=== PATIENT | female | born 1950 | race African-American/Black ===

== ENCOUNTER 2017-06-12 00:12 | Emergency (ER) | payer OTHER, MEDICARE, MEDICAID ==
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
[2017-06-12] MEDS ORDERED: ACETAMINOPHEN 325 MG TABLET PO ONE (01:17)
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
[2017-06-12 03:17] VITALS: BP 154/74
== END 2017-06-12 03:12 | disposition home or self-care (01) ==
LOC: ER 00:12 → EDBD 00:12 → ER 03:12
DX: S29.012A Strain of muscle and tendon of back wall of thorax, initial encounter (principal); S76.812A Strain of other specified muscles, fascia and tendons at thigh level, left thigh, initial encounter; M54.2 Cervicalgia; R51 Headache; M79.652 Pain in left thigh; V87.7XXA Person injured in collision between other specified motor vehicles (traffic), initial encounter
CPT/HCPCS: 99283

== ENCOUNTER → 2017-12-22 | Outpatient (CLI) | payer MEDICARE, OTHER, MEDICAID ==
--- NOTE | 2017-12-22 14:15 | RADIOLOGY REPORT (SQ) ---
EXAM DESCRIPTION: CHEST PA/LATERAL COMPLETED DATE/TIME: 12/22/2017 12:53 pm REASON FOR STUDY: FLUID OVERLOAD COMPARISON: Abdominal CT scan dated February 2010 EXAM PARAMETERS: NUMBER OF VIEWS: two views TECHNIQUE: Digital Frontal and Lateral radiographic views of the chest acquired. RADIATION DOSE: NA LIMITATIONS: none FINDINGS: LUNGS AND PLEURA: No opacities, masses or pneumothorax. No pleural effusion. MEDIASTINUM AND HILAR STRUCTURES: No masses or adenopathy. HEART AND VASCULAR STRUCTURES: Cardiac silhouette is at the upper limits of normal in size P BONES: No acute findings. HARDWARE: None in the chest. OTHER: Air is identified beneath the right hemidiaphragm suspicious for free intraperitoneal air. Th ere appears to be an associated air-fluid level. Clinical correlation is recommended. Abdominal CT scan may be of value for further evaluation. The previous CT scan did not demonstrate bowel between the right hemidiaphragm and liver. IMPRESSION: No acute consolidations or pleural effusions. Borderline cardiomegaly. Air is identifi ed beneath the right hemidiaphragm suspicious for free intraperitoneal air. There appears to be an a ssociated air-fluid level. Clinical correlation is recommended. Abdominal CT scan may be value for further evaluation. Other findings as noted above. COMMENT: These findings were discussed with Dr. Mendoza at the time of this dictation. TECHNICAL DOCUMENTATION: JOB ID: [id number] [employer]- All Rights Reserved Reading location - IP/workstation name: [email or web address]
== END ==
LOC: OD 12:30
PROVIDERS: ATTEND Internal Medicine Nephrology
DX: E87.70 Fluid overload, unspecified (principal)
CPT/HCPCS: 71046

== ENCOUNTER → 2018-01-29 | Outpatient (CLI) | payer MEDICARE, OTHER, MEDICAID ==
--- NOTE | 2018-01-29 15:45 | RADIOLOGY REPORT (SQ) ---
EXAM DESCRIPTION: KUB COMPLETED DATE/TIME: 01/29/2018 3:14 pm REASON FOR STUDY: DEPENDENCE ON RENAL DIALYSIS;ENCOUNTER FOR FIT/ADJUST OF PERITONEAL DIALYSIS Z99.2 DEPENDENCE ON RENAL DIALYSIS Z49.02 ENCOUNTER FOR FIT/ADJUST OF PERITONEAL DIALYSIS CATHETER COMPARISON: None. NUMBER OF VIEWS: One view. TECHNIQUE: Supine radiographic image of the abdomen acquired. LIMITATIONS: None. FINDINGS: BOWEL GAS PATTERN: Normal bowel gas pattern. No dilated loops. CALCIFICATIONS: No suspicious calcifications. SOFT TISSUES: No gross mass or suggestion of organomegaly. HARDWARE: Peritoneal dialysis catheter. BONES: No acute fracture. No worrisome bone lesions. OTHER: No other significant finding. IMPRESSION: NO RADIOGRAPHIC EVIDENCE FOR ACUTE ABDOMINAL DISEASE. TECHNICAL DOCUMENTATION: JOB ID: [id number] [employer]- All Rights Reserved Reading location - IP/workstation name: [email or web address]
== END ==
LOC: OD 14:42
PROVIDERS: ATTEND Internal Medicine Nephrology
DX: I12.0 Hypertensive chronic kidney disease with stage 5 chronic kidney disease or end stage renal disease (principal); N18.6 End stage renal disease; Z99.2 Dependence on renal dialysis
CPT/HCPCS: 74018

== ENCOUNTER → 2018-07-01 | Outpatient (CLI) | payer MEDICARE, OTHER ==
--- NOTE | 2018-07-01 08:45 | RADIOLOGY REPORT (SQ) ---
EXAM DESCRIPTION: [facility] DUPLEX ART/DANILO FLOW COMPLETED DATE/TIME: 07/01/2018 8:26 am REASON FOR STUDY: UNCONTROLLED SECONDARY HTN (I15.9) I15.9 SECONDARY HYPERTENSION, UNSPECIFIED COMPARISON: None. TECHNIQUE: Realtime and static grayscale images acquired. Selected color Doppler, velocities and spe ctral images recorded. LIMITATIONS: None. FINDINGS: RIGHT KIDNEY: RENAL ARTERY VELOCITIES: 110.3 cm/sec. Segmental artery velocity 38.2 cm/sec. RENAL VEIN: Color doppler flow present, patent. VELOCITY RATIO: 0.87. Normal waveforms. KIDNEY: 7.7 cm. Increased echogenicity. 1.3 cm cortical cyst. No hydronephrosis. LEFT KIDNEY: RENAL ARTERY VELOCITIES: 66.7 cm/sec. Segmental artery velocity 31 cm/sec. RENAL VEIN: Color doppler flow present, patent. VELOCITY RATIO: 0.53. Normal waveforms. KIDNEY: 8.4 cm. Increased echogenicity. 2 cm cortical cyst. No hydronephrosis. BLADDER: Normal. OTHER: Small amount of free fluid secondary to peritoneal dialysis. IMPRESSION: NO DOPPLER EVIDENCE OF HEMODYNAMICALLY SIGNIFICANT RENAL ARTERY STENOSIS. BILATERAL SMALL KIDNEYS WITH INCREASED ECHOGENICITY CONSISTENT WITH CHRONIC MEDICAL RENAL DISEASE. C ORTICAL CYSTS. NO HYDRONEPHROSIS. COMMENT: NORMAL RENAL ARTERY/AORTA VELOCITY RATIO IS LESS THAN OR EQUAL TO 3.5. TECHNICAL DOCUMENTATION: JOB ID: [id number] [employer]- All Rights Reserved Reading location - IP/workstation name: [email or web address]
== END ==
LOC: RAD 07:22
PROVIDERS: ATTEND Internal Medicine Nephrology
DX: I15.9 Secondary hypertension, unspecified (principal); N18.9 Chronic kidney disease, unspecified; D63.1 Anemia in chronic kidney disease
CPT/HCPCS: 93976

== ENCOUNTER → 2018-07-15 | Outpatient (CLI) | payer MEDICARE, OTHER ==
--- NOTE | 2018-07-15 13:57 | RADIOLOGY REPORT (SQ) ---
EXAM DESCRIPTION: CT ABDOMEN NO ORAL OR IV COMPLETED DATE/TIME: 07/15/2018 1:20 pm REASON FOR STUDY: OTHER ASCITIES (R18.8) R18.8 OTHER ASCITES COMPARISON: CT abdomen pelvis 03/18/2010 TECHNIQUE: CT scan of the abdomen performed without intravenous contrast and without oral contrast. Images reviewed with lung, soft tissue, and bone windows. Reconstructed coronal and sagittal MPR im ages reviewed. All images stored on PACS. All CT scanners at this facility use dose modulation, iterative reconstruction, and/or weight based d osing when appropriate to reduce radiation dose to as low as reasonably achievable (ALARA). [facility]: Dose Right [facility]: CareDose [facility]: Dose Right [facility]: Teradose 4D [facility]: Smart Red [place] RADIATION DOSE: CT Rad equipment meets quality standard of care and radiation dose reduction techniq ues were employed. CTDIvol: 4.1 mGy. DLP: 157 mGy-cm.mGy. LIMITATIONS: None. FINDINGS: LOWER CHEST: No significant findings. No nodules or infiltrates. NONCONTRASTED LIVER, SPLEEN, ADRENALS: Evaluation limited by lack of IV contrast. No identified sign ificant masses. PANCREAS: No masses. No peripancreatic inflammatory changes. GALLBLADDER: No identified stones by CT criteria. No inflammatory changes to suggest cholecystitis. RIGHT KIDNEY AND URETER: No suspicious masses. Assessment limited by lack of IV contrast. 2 mm righ t upper pole intrarenal nonobstructive stone No hydronephrosis or hydroureter. LEFT KIDNEY AND URETER: No suspicious masses. 2 cm cyst left upper pole kidney. Assessment limited by lack of IV contrast. No significant calcifications. No hydronephrosis or hydroureter. AORTA AND RETROPERITONEUM: No aneurysm. No retroperitoneal masses or adenopathy. BOWEL AND PERITONEAL CAVITY: There is a left lower quadrant indwelling peritoneal catheter which is i ncompletely included in the field of view. Moderate amount of fluid is present in the right and left subphrenic space, likely peritoneal dialysis fluid. This is best shown on coronal image 39. No CT evidence of bowel obstruction APPENDIX: Normal. ABDOMINAL WALL: No abdominal wall hernias. BONES: Chronic appearing L2 upper endplate 50% compression deformity. OTHER: No other significant finding. IMPRESSION: Moderate amount of retained fluid in the right and left subphrenic space, left lower qu adrant peritoneal dialysis catheter incompletely included in the field of view. TECHNICAL DOCUMENTATION: JOB ID: [id number] Quality ID # [id number]: Final reports with documentation of one or more dose reduction techniques (e.g., Au tomated exposure control, adjustment of the mA and/or kV according to patient size, use of iterative reconstruction technique) 2010 [employer]- All Rights Reserved Reading location - IP/workstation name: [email or web address]
== END ==
LOC: RAD 13:02
PROVIDERS: ATTEND Internal Medicine Nephrology
DX: R18.8 Other ascites (principal)
CPT/HCPCS: 74150

== ENCOUNTER 2018-11-05 20:16 | Emergency (ER) | payer MEDICARE, MEDICAID ==
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
[2018-11-05] MEDS ORDERED: ACETAMINOPHEN 325 MG TABLET PO ONE (21:10)
--- NOTE | 2018-11-05 22:08 | RADIOLOGY REPORT (SQ) ---
CT THORACIC SPINE WITHOUT IV CONTRAST HISTORY: Back pain. COMPARISON: None. TECHNIQUE: CT scan of the thoracic spine without IV contrast. This exam was performed according to our departmental dose-optimization program, which includes automated exposure control, adjustment of the mA and/or kV according to patient size and/or use of iterative reconstruction technique. FINDINGS: No acute compression fracture is seen. There is an old compression fracture of L2 seen on prior study. The thoracic alignment is maintained. There is mild multilevel degenerative disc disease throughout the thoracic spine. No advanced canal stenosis is identified. There are small bilateral pleural effusions with adjacent atelectasis. Generalized osteopenia is present. IMPRESSION: No acute compression fracture of the thoracic spine.
--- NOTE | 2018-11-05 22:15 | RADIOLOGY REPORT (SQ) ---
EXAM DESCRIPTION: RadLex: XR ANKLE 2 VIEWS BILATERAL Views: 2 views of each ankle CLINICAL HISTORY: 68 years Female, fall, back pain COMPARISON: None. FINDINGS: Left: Negative for acute fracture, dislocation, or radiopaque foreign body. Right: Negative for acute fracture, dislocation, or radiopaque foreign body. Scattered vascular calcifications are noted. IMPRESSION: 1. No acute findings. 2. Peripheral vascular disease.
--- NOTE | 2018-11-05 22:19 | RADIOLOGY REPORT (SQ) ---
CT LUMBAR SPINE WITHOUT IV CONTRAST HISTORY: Lower back pain. COMPARISON: None. TECHNIQUE: CT scan of the lumbar spine without IV contrast. This exam was performed according to our departmental dose-optimization program, which includes automated exposure control, adjustment of the mA and/or kV according to patient size and/or use of iterative reconstruction technique. FINDINGS: No acute compression fracture is seen. There is a chronic compression fracture of L2 seen on prior CT scan. The lumbar alignment is maintained. Mild disc space loss at L5-S1. There is also mild facet DJD throughout the L3-S1 levels. There are small disc bulges at L3-L4, L4-L5, and L5-S1 but without advanced canal stenosis. Neural foramina are patent. The sacroiliac joints are intact. Generalized osteopenia is present. IMPRESSION: 1. No acute compression fracture of the lumbar spine. 2. Old compression fracture of L2 with superimposed degenerative changes.
[2018-11-05] MEDS ORDERED: ONDANSETRON HCL 8 MG TABLET PO ONE (23:06)
[2018-11-05] MEDS ORDERED: OXYCODONE HCL IR 5 MG TABLET PO ONE (23:06)
[2018-11-05] MEDS ORDERED: ONDANSETRON ODT 4 MG TAB (6 TAB/ER DISP) PO PRN (23:43)
[2018-11-05] MEDS ORDERED: HYDROCODONE/ACETAMINOPHEN 5-325 MG (6 TAB/ER DISP) PO PRN (23:43)
[2018-11-06 00:13] VITALS: BP 151/79
== END 2018-11-06 00:13 | disposition home or self-care (01) ==
LOC: ER 20:16
DX: M54.5 Low back pain (principal); M54.6 Pain in thoracic spine; R11.0 Nausea; M79.672 Pain in left foot; M79.671 Pain in right foot; R53.1 Weakness; Y04.2XXA Assault by strike against or bumped into by another person, initial encounter; W17.89XA Other fall from one level to another, initial encounter; I12.0 Hypertensive chronic kidney disease with stage 5 chronic kidney disease or end stage renal disease; N18.6 End stage renal disease
CPT/HCPCS: 99284; 73600; 72128; 72131; A9270 ×5; S0119

== ENCOUNTER 2018-11-25 17:08 | Emergency (ER) | payer MEDICARE, MEDICAID ==
[2018-11-25 18:25] LABS: HEMATOCRIT 33.3 % (36.0-47.0); HEMOGLOBIN 10.9 g/dL (12.0-15.5); MEAN CORPUSCULAR HEMOGLOBIN 28.2 pg (27.0-33.4); MEAN CORPUSCULAR HGB CONC 32.9 g/dL (32.0-36.0); MEAN CORPUSCULAR VOLUME 86 fl (80-97); PLATELET COUNT 307 10^3/uL (150-450); RED BLOOD COUNT 3.87 10^6/uL (3.72-5.28); RED CELL DISTRIBUTION WIDTH 31.8 % (11.5-14.0); WHITE BLOOD COUNT 4.8 10^3/uL (4.0-10.5)
[2018-11-25 18:43] LABS: ABSOLUTE MONOCYTES # (MANUAL) 0.5 10^3/uL (0.1-1.4); ABSOLUTE NEUTROPHILS# (MANUAL) 3.3 10^3/uL (1.7-8.2); BASOPHILS % (MANUAL) 1 % (0-2); EOSINOPHILS % (MANUAL) 0 % (0-6); LYMPHOCYTES % (MANUAL) 21 % (13-45); METAMYELOCYTES % (MANUAL) 1 % (0); MONOCYTES % (MANUAL) 10 % (3-13); SEGMENTED NEUTROPHILS % (MAN) 67 % (42-78); TOTAL CELLS COUNTED 100
--- NOTE | 2018-11-25 18:46 | RADIOLOGY REPORT (SQ) ---
EXAM DESCRIPTION: CHEST SINGLE VIEW COMPLETED DATE/TIME: 11/25/2018 6:14 pm REASON FOR STUDY: cough COMPARISON: None. EXAM PARAMETERS: NUMBER OF VIEWS: One view. TECHNIQUE: Single frontal radiographic view of the chest acquired. RADIATION DOSE: NA LIMITATIONS: None. FINDINGS: LUNGS AND PLEURA: Left pleural effusion. Small right pleural effusion. Considerable retr ocardiac opacification on the left. MEDIASTINUM AND HILAR STRUCTURES: No masses. Contour normal. HEART AND VASCULAR STRUCTURES: Heart normal in size. Normal vasculature. BONES: No acute findings. HARDWARE: Dual-lumen catheter. OTHER: No other significant finding. IMPRESSION: Pleural effusions. Cannot exclude airspace disease in the left lower lobe, atelectasis versus pneumonia. TECHNICAL DOCUMENTATION: JOB ID: [id number] [employer]- All Rights Reserved Reading location - IP/workstation name: [email or web address]
[2018-11-25 18:48] LABS: ANISOCYTOSIS 4+; OVALOCYTES SLIGHT; PLATELET COMMENT ADEQUATE; POIKILOCYTOSIS 2+; TARGET CELLS 2+
--- NOTE | 2018-11-25 19:30 | ER Document Report ---
ED Blood Pressure Problem - General Mode of Arrival: Medic Information source: Patient, Emergency Med Personnel TRAVEL OUTSIDE OF THE [place] IN LAST 30 DAYS: No - HPI Patient complains to provider of: Low blood pressure Onset: Yesterday Onset/Duration: Gradual, Persistent Quality of pain: No pain Severity: Moderate Pain Level: 3 Problem is: New problem Associated symptoms: Weakness. denies: Visual changes Similar symptoms previously: No Recently seen / treated by doctor: Yes <MAHESH JOSE - Last Filed: 11/25/18 19:38> <CAILIN WATTS - Last Filed: 11/26/18 06:36> - General Chief Complaint: Low Blood Pressure Stated Complaint: BLOOD PRESSURE ISSUES Time Seen by Provider: 11/25/18 17:26 Primary Care Provider: Jenna DOS SANTOS MD [Primary Care Provider] - Follow up as needed Notes: Patient is a 68-year-old female is brought in by EMS with a complaint of hypotension. Patient informs us as well as this EMS that patient has home health and they went out to her house today found out that her blood pressure was a little on the low side my understanding from patient was it was 88/50 when home health contacted EMS. EMS reported the patient had a blood pressure on her arrival of over 100 systolic with a diastolic of around 55. On arrival into the emergency room patient's blood pressure was at 100/50. She informs me that she has had a fairly extensive past medical history recently back in June of this year she was sent to [facility] where she was found to have a small bowel obstruction and underwent surgery. Patient was then transferred back here to [place] where she was in rehab until the end of September. And she is just recently been home. She denies any nausea vomiting or diarrhea she does state that she still urinates and she is on dialysis which she receives Thursday and Fridays. She does state that she went to dialysis yesterday where she states that she was there for a total of 2 hours and 45 minutes but does not know how much volume they took off of her. She has been feeling a little "peaked" for the past few days. She denies any chest pain patient's vital signs on arrival showed her to be afebrile with a blood pressure 100/50 heart rate of 80 pulse ox of 99% on room air and respiratory rate of 20. (MAHESH JOSE) - Related Data Allergies/Adverse Reactions: No Known Allergies Allergy (Verified 11/05/18 21:13) Past Medical History - General Information source: Patient, Emergency Med Personnel, [facility] Records - Social History Smoking Status: Unknown if Ever Smoked Chew tobacco use (# tins/day): No Frequency of alcohol use: None Drug Abuse: None Family History: Reviewed & Not Pertinent Patient has suicidal ideation: No Patient has homicidal ideation: No - Past Medical History Cardiac Medical History: Reports: Hx Hypertension Renal/ Medical History: Reports: Hx End Stage Renal Disease. Denies: Hx Peritoneal Dialysis Past Surgical History: Reports: Hx Abdominal Surgery, Other - peritoneal catheter placement <MAHESH JOSE - Last Filed: 11/25/18 19:38> Review of Systems - Review of Systems Constitutional: See HPI, Malaise, Weakness EENT: No symptoms reported Cardiovascular: No symptoms reported Respiratory: No symptoms reported Gastrointestinal: No symptoms reported Genitourinary: No symptoms reported Female Genitourinary: No symptoms reported Musculoskeletal: No symptoms reported Skin: No symptoms reported Hematologic/Lymphatic: No symptoms reported Neurological/Psychological: See HPI, Weakness -: Yes All other systems reviewed and negative <MAHESH JOSE - Last Filed: 11/25/18 19:38> Physical Exam - Vital signs Interpretation: Hypotensive <MAHESH JOSE - Last Filed: 11/25/18 19:38> - Vital signs Vitals: Temp Pulse Resp BP Pulse Ox 97.7 F 81 17 100/56 L 100 11/25/18 17:09 11/25/18 17:09 11/25/18 17:09 11/25/18 17:09 11/25/18 17:09 - Notes Notes: PHYSICAL EXAMINATION: GENERAL: patient is a 68-year-old female who appears slightly older than her stated age. She is also slightly frail-appearing with a small stature. She does not appear to be in any distress on physical exam today. She is actually relaxed. [id number] HEAD: Atraumatic, normocephalic. EYES: Pupils equal round and reactive to light, extraocular movements intact, conjunctiva are normal. ENT: Nares patent, oropharynx clear without exudates. dry mucous membranes. NECK: Normal range of motion, supple without lymphadenopathy LUNGS: Breath sounds clear to auscultation bilaterally and equal. No wheezes rales or rhonchi. HEART: Regular rate and rhythm without murmurs ABDOMEN: Soft, nontender, nondistended abdomen. No guarding, no rebound. No masses appreciated. Do not see any overt ascites in the abdominal area on examination. Female : deferred Musculoskeletal: Examination of patient's extremities show that she does have edema in bilateral lower extremities 1+ pitting. Upper extremities are also slightly edematous both bilateral arms up to about the mid upper arm. Again 1+ edema. Noted are just tight banding around her arm leaves indentations. She has good cap refill in the nailbeds of the fingers as well as the toes. NEUROLOGICAL: Normal speech, normal gait. Normal sensory, motor exams PSYCH: Flat and blunted affect SKIN: No overt ecchymosis or abnormalities found. (MAHESH JOSE) Course - Laboratory Result Diagrams: 11/25/18 17:55 11/25/18 17:55 <MAHESH JOSE - Last Filed: 11/25/18 19:38> - Laboratory Result Diagrams: 11/25/18 17:55 11/25/18 19:39 <CAILIN WATTS - Last Filed: 11/26/18 06:36> - Re-evaluation Re-evalutation: 11/25/18 19:38 Patient's work-up in the ER so far is been benign however her labs hemolyzed and she is now given us a urine yet prior to me going home. I am going to pass this onto the next provider José Miguel Watts and at this point I have gone in and talk to patient about her medications she is currently on 6 blood pressure medications which include furosemide, nifedipine, Adalat, carvedilol, doxazosin and clonidine. I went into the asked patient since she gets some from her primary doctor I noticed others were filled at the [place] [id number] facility I simply asked her if Dr. Carter was aware of all the medication she was on if she became a little bit irate and stating that he handles all of her medications. I just wanted to confirm since her blood pressure was low that she was on this many and it is understandable that if she is on dialysis that sometimes her blood pressure may be a little hard to control. At any rate we will have to wait to see order labs come back looking like but I would anticipate that if we were to hold at least the nifedipine or the doxazosin on the night dose that her blood pressure should increase somewhat she can discuss some with Dr. Carter on Thursday. She can keep a log of her blood pressure medication and log of her blood pressures at home that weight adjustments can be made if need to. If any abnormalities are found she may be admitted. (MAHESH JOSE) 11/26/18 06:32 Patient's urine shows no signs of infection. Patient's current blood pressure is 163/88. I have discussed with her same as Mahesh Jose that patient may be on too many blood pressure medications. Patient states she takes 0.3 mg of clonidine 3 times a day. I have discussed that I do not feel as though she needs to take that much medication. Especially since her blood pressure was low. Patient is adamant that she must take 1 of her clonidine pills this morning. Patient does have her pills in her room with her. I have again discussed with her my fear that this may drop her blood pressure too much. Patient states "I know my body." Patient states she overall feels a lot better. Still denying any weakness, lightheadedness, chest pain, shortness of breath. Patient is requesting discharge from this facility. Nurse later brings my attention that the patient took 1 of her 0.3 mg clonidine tabs as well as her Valtrex pill this morning. Patient states she does have dialysis today at 1300 hrs. Patient continues to be hemodynamically stable and is denying any complaints to myself. Patient stable for discharge. (CAILIN WATTS) - Vital Signs Vital signs: Temp Pulse Resp BP Pulse Ox 98.4 F 81 0 L 157/86 H 100 11/25/18 20:36 11/25/18 20:47 11/26/18 05:01 11/26/18 05:00 11/26/18 05:01 - Laboratory Laboratory results interpreted by me: 11/25/18 11/25/18 11/25/18 17:55 19:39 21:43 Hgb 10.9 L Hct 33.3 L RDW 31.8 H Metamyelocytes % 1 H Sodium 135.6 L Potassium 3.4 L Creatinine 3.11 H Est GFR ( Amer) 18 L Est GFR (Non-Af Amer) 15 L Glucose 66 L POC Glucose 67 L Calcium 7.6 L Direct Bilirubin 0.6 H Total Protein 5.3 L Albumin 2.3 L Urine Protein Urine Ketones Ur Leukocyte Esterase 11/26/18 03:26 Hgb Hct RDW Metamyelocytes % Sodium Potassium Creatinine Est GFR ( Amer) Est GFR (Non-Af Amer) Glucose POC Glucose Calcium Direct Bilirubin Total Protein Albumin Urine Protein 100 H Urine Ketones TRACE H Ur Leukocyte Esterase MODERATE H Discharge <MAHESH JOSE - Last Filed: 11/25/18 19:38> <CAILIN WATTS - Last Filed: 11/26/18 06:36> - Discharge Clinical Impression: Weakness Hypotension Qualifiers: Hypotension type: other hypotension type Qualified Code(s): I95.89 - Other hypotension Condition: Stable Disposition: HOME, SELF-CARE Instructions: Hypotension ([facility]) Additional Instructions: As we discussed you have been seen and treated in the emergency department for your low blood pressure. You appear to be on multiple medications for your blood pressure. This may be too many medications. You should talk to your primary care provider about your medication regimen. Please make sure you go to dialysis today as scheduled. Please also return to the emergency room should you have any other concerns. Referrals: Jenna DOS SANTOS MD [Primary Care Provider] - Follow up as needed SARAVANAN CARTER MD [ACTIVE STAFF] - Follow up as needed
--- NOTE | 2018-11-25 19:46 | EKG REPORT ---
SEVERITY:- ABNORMAL ECG - SINUS RHYTHM RBBB AND LAFB PROBABLE LEFT VENTRICULAR HYPERTROPHY : Confirmed by: Monie Dubon MD 25-Nov-2018 19:45:44
[2018-11-25 20:04] LABS: ALANINE AMINOTRANSFERASE 25 U/L (9-52); ALBUMIN 2.3 g/dL (3.5-5.0); ALKALINE PHOSPHATASE 71 U/L (38-126); ANION GAP 10 (5-19); ASPARTATE AMINO TRANSFERASE 17 U/L (14-36); BILIRUBIN,DIRECT 0.6 mg/dL (0.0-0.4); BILIRUBIN,TOTAL 0.8 mg/dL (0.2-1.3); BLOOD UREA NITROGEN 10 mg/dL (7-20); CALCIUM 7.6 mg/dL (8.4-10.2); CARBON DIOXIDE 25 mmol/L (22-30); CHLORIDE 101 mmol/L (98-107); CREATINE KINASE 50 U/L (30-135); POTASSIUM 3.4 mmol/L (3.6-5.0); SODIUM 135.6 mmol/L (137-145); TOTAL PROTEIN 5.3 g/dL (6.3-8.2)
[2018-11-25 20:15] LABS: CREATINE KINASE MB 0.43 ng/mL (<4.55)
[2018-11-25 20:22] LABS: GLUCOSE 66 mg/dL (75-110)
[2018-11-25 20:23] LABS: TROPONIN I 0.044 ng/mL
[2018-11-25] MEDS ORDERED: NORMAL SALINE 1000 ML 500 ML IV ONE (21:13)
[2018-11-26 03:42] LABS: APPEARANCE,URINE CLOUDY; BILIRUBIN,URINE NEGATIVE (NEGATIVE); COLOR,URINE YELLOW; GLUCOSE, URINE NEGATIVE (NEGATIVE); KETONES,URINE TRACE mg/dL (NEGATIVE); LEUKOCYTE ESTERASE,URINE MODERATE (NEGATIVE); NITRITE,URINE NEGATIVE (NEGATIVE); PROTEIN,URINE 100 mg/dL (NEGATIVE); URINE SPECIFIC GRAVITY 1.011; UROBILINOGEN,URINE NEGATIVE mg/dL (<2.0)
[2018-11-26 06:51] VITALS: BP 163/88
== END 2018-11-26 06:45 | disposition home or self-care (01) ==
LOC: ER 17:08
DX: I95.89 Other hypotension (principal); R53.1 Weakness; I12.0 Hypertensive chronic kidney disease with stage 5 chronic kidney disease or end stage renal disease; N18.6 End stage renal disease
CPT/HCPCS: 93005; 99285; 96360; 36415; 87086; 82553; 82962; 82550; 85025; 87088; 80053; 81001; 84484; 87186; 71045; 93010; J7030

== ENCOUNTER 2018-12-25 23:26 | Inpatient (IN) | payer MEDICARE, MEDICAID ==
--- NOTE | 2018-12-25 23:29 | ER Document Report ---
ED General - General Stated Complaint: SHORTNESS OF BREATH Time Seen by Provider: 12/25/18 23:29 Notes: Patient is a 68-year-old female, CHF, end-stage renal disease on dialysis and hypertension that presents to the emergency department for chief complaint of shortness of breath, comes by EMS. History provided by EMS as the patient is currently on CPAP, unable to provide significant history. According to EMS the patient had been short of breath for 3 hours, but has had shortness of breath and cough over the past few days, but it was worse this evening. She was hypoxic by EMS at 65%, they placed her on CPAP, they did apply Nitropaste because her blood pressure was 250 systolic. The patient is still feeling short of breath despite being on CPAP, she at this time denies having any chest pain, according to family did arrive at bedside she has been having a cough recently and they did listen to her lungs at home and she has been "rattly". They are worried that she was developing pneumonia. She did complete her entire course session of dialysis on Thursday, without issues. Past Medical History: End-stage renal disease on dialysis, CHF, hypertension, hy perlipidemia Past Surgical History: Dialysis fistula, dialysis catheter placement Social History: Lives at home with family, she does have a hospital bed, no current tobacco or alcohol use. Family History: Reviewed and noncontributory for presenting illness Allergies: Reviewed, see documented allergy list. REVIEW OF SYSTEMS: Other than noted above, the 12 point review of systems was reviewed with the patient and were negative, all pertinent findings are included in the HPI. PHYSICAL EXAMINATION: Vital signs reviewed, nursing noted reviewed. GENERAL: Patient is in acute distress, increased work of breathing HEAD: Atraumatic, normocephalic. EYES: Eyes appear normal, extraocular movements intact, sclera anicteric, conjunctiva are normal. ENT: nares patent, oropharynx clear without exudates. Moist mucous membranes. NECK: Normal range of motion, supple without lymphadenopathy, JVD present. LUNGS: Increased work of breathing, on CPAP, rales noted throughout all lung hardy. HEART: Regular rate and rhythm without murmurs ABDOMEN: Soft, nontender, normoactive bowel sounds. No rebound, guarding, or rigidity. No masses appreciated. EXTREMITIES: Dialysis fistula noted in the left upper extremity, no thrill or bruit noted, apparently an old fistula. No significant peripheral edema noted on exam. Extremities are nontender. NEUROLOGICAL: No focal neurological deficits. Moves all extremities spontaneously Motor and sensory grossly intact on exam. PSYCH: Patient appears anxious, she is in distress. SKIN: Warm, Dry, normal turgor, no rashes or lesions noted on exposed skin TRAVEL OUTSIDE OF THE [place] IN LAST 30 DAYS: No - Related Data Allergies/Adverse Reactions: No Known Allergies Allergy (Verified 11/05/18 21:13) Past Medical History - Social History Smoking Status: Never Smoker Family History: Reviewed & Not Pertinent - Past Medical History Cardiac Medical History: Reports: Hx Hypertension Renal/ Medical History: Reports: Hx End Stage Renal Disease. Denies: Hx Peritoneal Dialysis Past Surgical History: Reports: Hx Abdominal Surgery, Other - peritoneal catheter placement Physical Exam - Vital signs Vitals: Temp Pulse Resp BP Pulse Ox 97.6 F 92 23 H 218/130 H 96 12/25/18 23:27 12/25/18 23:27 12/25/18 23:27 12/25/18 23:27 12/25/18 23:27 Course - Re-evaluation Re-evalutation: Patient seen and examined vital signs reviewed. Was in acute respiratory distress. Laboratory data and imaging were ordered as appropriate for the patient's presen ting symptoms and complaint, with consideration of any critical or life threatening conditions that may be associated with their obtained history and exam as noted above. Patient was treated with BIPAP, IV nitroglycerin infusion. Patient was still having elevated SBP, therefore given hydralazine 20mg IV Results were reviewed when available and demonstrated CXR concerning for RLL pneumonia, and she was given cefepime and vancomycin for coverage. The patient was re-evaluated and was improved on the BiPAP, blood pressure was coming down nicely, and able to back down off the nitroglycerin infusion. Evaluation was most consistent with acute respiratory failure with hypoxia, pneumonia, hypertensive emergency, pulmonary edema Results were discussed with the patient at this point after careful consideration I feel that that patient should be admitted to the hospital. This was discussed with the patient that it is in the best interest for their care to be admitted for further evaluation and management. Patient agreed with this plan of care. A call was placed to the admitting physician, Dr. Abarca who graciously accepted the patient onto their service. *Note is created using voice recognition software and may contain spelling, syntax or grammatical errors. Laboratory 12/25/18 12/25/18 12/25/18 23:31 23:31 23:31 WBC 7.7 RBC 3.85 Hgb 12.4 Hct 37.0 MCV 96 MCH 32.1 MCHC 33.4 RDW 20.7 H Plt Count 443 Total Counted 100 Seg Neutrophils % Not Reportable Seg Neuts % (Manual) 79 H Lymphocytes % Not Reportable Lymphocytes % (Manual) 16 Monocytes % Not Reportable Monocytes % (Manual) 3 Eosinophils % Not Reportable Eosinophils % (Manual) 1 Basophils % Not Reportable Basophils % (Manual) 1 Absolute Neutrophils Not Reportable Abs Neuts (Manual) 6.1 Absolute Lymphocytes Not Reportable Abs Lymphs (Manual) 1.2 Absolute Monocytes Not Reportable Abs Monocytes (Manual) 0.2 Absolute Eosinophils Not Reportable Absolute Eos (Manual) 0.1 Absolute Basophils Not Reportable Abs Basophils (Manual) 0.1 Nucleated RBCs 1 Platelet Comment ADEQUATE Polychromasia SLIGHT Hypochromasia 1+ Poikilocytosis SLIGHT Anisocytosis 3+ Target Cells 3+ Schistocytes SLIGHT PT INR Sodium Cancelled Potassium Cancelled Chloride Cancelled Carbon Dioxide Cancelled Anion Gap Cancelled BUN Cancelled Creatinine Cancelled Est GFR ( Amer) Cancelled Est GFR (Non-Af Amer) Cancelled Glucose Cancelled Calcium Cancelled Total Bilirubin Cancelled Direct Bilirubin Cancelled Neonat Total Bilirubin Cancelled Neonat Direct Bilirubin Cancelled Neonat Indirect Bili Cancelled AST Cancelled ALT Cancelled Alkaline Phosphatase Cancelled Troponin I Cancelled NT-Pro-B Natriuret Pep Total Protein Cancelled Albumin Cancelled 12/25/18 12/25/18 12/26/18 23:31 23:31 00:31 WBC RBC Hgb Hct MCV MCH MCHC RDW Plt Count Total Counted Seg Neutrophils % Seg Neuts % (Manual) Lymphocytes % Lymphocytes % (Manual) Monocytes % Monocytes % (Manual) Eosinophils % Eosinophils % (Manual) Basophils % Basophils % (Manual) Absolute Neutrophils Abs Neuts (Manual) Absolute Lymphocytes Abs Lymphs (Manual) Absolute Monocytes Abs Monocytes (Manual) Absolute Eosinophils Absolute Eos (Manual) Absolute Basophils Abs Basophils (Manual) Nucleated RBCs Platelet Comment Polychromasia Hypochromasia Poikilocytosis Anisocytosis Target Cells Schistocytes PT 13.7 INR 1.05 Sodium 137.2 Potassium 4.2 Chloride 104 Carbon Dioxide 27 Anion Gap 6 BUN 20 Creatinine 3.25 H Est GFR ( Amer) 17 L Est GFR (Non-Af Amer) 14 L Glucose 67 L Calcium 8.1 L Total Bilirubin 0.8 Direct Bilirubin 0.5 H Neonat Total Bilirubin Not Reportable Neonat Direct Bilirubin Not Reportable Neonat Indirect Bili Not Reportable AST 25 ALT 22 Alkaline Phosphatase 67 Troponin I NT-Pro-B Natriuret Pep Cancelled Total Protein 5.5 L Albumin 2.4 L 12/26/18 00:31 WBC RBC Hgb Hct MCV MCH MCHC RDW Plt Count Total Counted Seg Neutrophils % Seg Neuts % (Manual) Lymphocytes % Lymphocytes % (Manual) Monocytes % Monocytes % (Manual) Eosinophils % Eosinophils % (Manual) Basophils % Basophils % (Manual) Absolute Neutrophils Abs Neuts (Manual) Absolute Lymphocytes Abs Lymphs (Manual) Absolute Monocytes Abs Monocytes (Manual) Absolute Eosinophils Absolute Eos (Manual) Absolute Basophils Abs Basophils (Manual) Nucleated RBCs Platelet Comment Polychromasia Hypochromasia Poikilocytosis Anisocytosis Target Cells Schistocytes PT INR Sodium Potassium Chloride Carbon Dioxide Anion Gap BUN Creatinine Est GFR ( Amer) Est GFR (Non-Af Amer) Glucose Calcium Total Bilirubin Direct Bilirubin Neonat Total Bilirubin Neonat Direct Bilirubin Neonat Indirect Bili AST ALT Alkaline Phosphatase Troponin I 0.024 NT-Pro-B Natriuret Pep 98156 H Total Protein Albumin Chest X-Ray 12/25/18 23:29 IMPRESSION: 1. Increasing volume loss in the right lung base when compared to the prior study. There is grossly stable persistent volume loss in the left lung base. Findings may be due to a combination of pleural fluid, edema, atelectasis and/or pneumonia. 2. Stable right IJ dialysis catheter. - Vital Signs Vital signs: Temp Pulse Resp BP Pulse Ox 97.6 F 92 12 159/98 H 100 12/25/18 23:27 12/25/18 23:27 12/26/18 02:46 12/26/18 02:46 12/26/18 02:46 - Laboratory Result Diagrams: 12/25/18 23:31 12/26/18 00:31 Laboratory results interpreted by me: 12/25/18 12/26/18 12/26/18 23:31 00:31 00:31 RDW 20.7 H Seg Neuts % (Manual) 79 H Creatinine 3.25 H Est GFR ( Amer) 17 L Est GFR (Non-Af Amer) 14 L Glucose 67 L Calcium 8.1 L Direct Bilirubin 0.5 H NT-Pro-B Natriuret Pep 87184 H Total Protein 5.5 L Albumin 2.4 L - EKG Interpretation by Me Additional EKG results interpreted by me: EKG demonstrates sinus rhythm with incomplete right bundle branch block with a ventricular rate of 94 bpm, QTC prolonged at 560 ms, left axis deviation, no ST elevation, compared to prior EKG, from 11/25/2018, at that time patient had T wave inversions in leads to be 3 through V6. Critical Care Note - Critical Care Note Total time excluding time spent on procedures (mins): 45 Comments: Critical care time 45 minutes exclusive from separate billable procedures for a patient requiring complex medical decision making, and high potential for clinical deterioration. In a patient with acute respiratory distress and hypertensive emergency. Time spent obtaining history from patient or surrogate, discussions with consultants, development of treatment plan with patient or surrogate, evaluation of patient's response to treatment, examination of patient, ordering and performing treatments and interventions, ordering and review of laboratory studies, re-evaluation of patient's condition, ordering and review of radiographic studies and review of old charts Discharge - Discharge Clinical Impression: Hypertensive emergency, Pulmonary edema with congestive heart failure, Acute respiratory failure with hypoxia Acute exacerbation of CHF (congestive heart failure) Qualifiers: Heart failure type: unspecified Qualified Code(s): I50.9 - Heart failure, unspecified RLL pneumonia Qualifiers: Pneumonia type: due to unspecified organism Qualified Code(s): J18.1 - Lobar pneumonia, unspecified organism Condition: Serious Disposition: ADMITTED INPATIENT Admitting Provider: Tevin (Hospitalist) Unit Admitted: [facility]
[2018-12-25] MEDS ORDERED: NITROGLYCERIN/D5W 50 MG/250 ML RTUINJ IV PRN (23:30)
[2018-12-25 23:51] LABS: HEMOGLOBIN 12.4 g/dL (12.0-15.5); MEAN CORPUSCULAR HEMOGLOBIN 32.1 pg (27.0-33.4); MEAN CORPUSCULAR HGB CONC 33.4 g/dL (32.0-36.0); MEAN CORPUSCULAR VOLUME 96 fl (80-97); PLATELET COUNT 443 10^3/uL (150-450); RED BLOOD COUNT 3.85 10^6/uL (3.72-5.28); RED CELL DISTRIBUTION WIDTH 20.7 % (11.5-14.0); WHITE BLOOD COUNT 7.7 10^3/uL (4.0-10.5)
[2018-12-25] MEDS ORDERED: VANCOMYCIN HCL INJ 1000 MG VIAL IV ONE (23:51)
[2018-12-25] MEDS ORDERED: CEFEPIME 1 GM/D5W RTU 1 GM/50 ML RTUPB IV ONE (23:52)
[2018-12-26 00:01] LABS: INTERNATIONAL RATION (INR) 1.05; PROTHROMBIN TIME 13.7 SEC (11.4-15.4)
[2018-12-26] MEDS ORDERED: HYDRALAZINE HCL INJ/PF 20 MG/1 ML SDV IV ONE (00:11)
[2018-12-26 00:13] LABS: ABSOLUTE LYMPHOCYTES# (MANUAL) 1.2 10^3/uL (0.5-4.7); ABSOLUTE MONOCYTES # (MANUAL) 0.2 10^3/uL (0.1-1.4); ANISOCYTOSIS 3+; BASOPHILS % (MANUAL) 1 % (0-2); EOSINOPHILS % (MANUAL) 1 % (0-6); HYPOCHROMASIA 1+; LYMPHOCYTES % (MANUAL) 16 % (13-45); MONOCYTES % (MANUAL) 3 % (3-13); NUCLEATED RED BLOOD CELLS 1 /100 WBC (0); PLATELET COMMENT ADEQUATE; POIKILOCYTOSIS SLIGHT; POLYCHROMASIA SLIGHT; SCHISTOCYTES SLIGHT; SEGMENTED NEUTROPHILS % (MAN) 79 % (42-78); TOTAL CELLS COUNTED 100
[2018-12-26 00:15] LABS: TARGET CELLS 3+
--- NOTE | 2018-12-26 00:15 | RADIOLOGY REPORT (SQ) ---
EXAM DESCRIPTION: X-ray single view chest. CLINICAL HISTORY: 68 years Female, shortness of breath COMPARISON: 11/25/2018 TECHNIQUE: Single portable x-ray view of the chest performed on 12/25/2018 at 11:46 PM FINDINGS: The lungs are well expanded. There is increasing volume loss in the right lung base. There is persistent stable volume loss in the left lung base. Findings may reflect a combination of pleural fluid, pulmonary edema, atelectasis or pneumonia. There is no evidence of a pneumothorax. The cardiac silhouette is normal in size and configuration. The mediastinal contours are normal. No acute osseous abnormality is identified. No focal soft tissue abnormalities are seen. Lines and tubes: A right IJ dialysis catheter is present. The tip overlies the region of the superior vena cava and is stable. IMPRESSION: 1. Increasing volume loss in the right lung base when compared to the prior study. There is grossly stable persistent volume loss in the left lung base. Findings may be due to a combination of pleural fluid, edema, atelectasis and/or pneumonia. 2. Stable right IJ dialysis catheter.
[2018-12-26] MEDS ORDERED: ACETAMINOPHEN 325 MG TABLET PO ONE (00:35)
[2018-12-26 01:09] LABS: ALANINE AMINOTRANSFERASE 22 U/L (9-52); ALBUMIN 2.4 g/dL (3.5-5.0); ALKALINE PHOSPHATASE 67 U/L (38-126); ANION GAP 6 (5-19); ASPARTATE AMINO TRANSFERASE 25 U/L (14-36); BILIRUBIN,DIRECT 0.5 mg/dL (0.0-0.4); BILIRUBIN,TOTAL 0.8 mg/dL (0.2-1.3); BLOOD UREA NITROGEN 20 mg/dL (7-20); CALCIUM 8.1 mg/dL (8.4-10.2); CARBON DIOXIDE 27 mmol/L (22-30); CHLORIDE 104 mmol/L (98-107); POTASSIUM 4.2 mmol/L (3.6-5.0); SODIUM 137.2 mmol/L (137-145); TOTAL PROTEIN 5.5 g/dL (6.3-8.2)
[2018-12-26 01:15] LABS: GLUCOSE 67 mg/dL (75-110)
[2018-12-26 01:22] LABS: TROPONIN I 0.024 ng/mL
[2018-12-26] MEDS ORDERED: MAG HYDROX/AL HYDROX/SIMETH SUSP 30 ML UDCUP PO PRN (02:00)
[2018-12-26] MEDS ORDERED: MAGNESIUM HYDROXIDE SUSP 30 ML UDCUP PO PRN (02:00)
[2018-12-26] MEDS ORDERED: METOPROLOL TARTRATE PF/INJ 5 MG/5 ML SDV IV PRN (02:06)
[2018-12-26] MEDS ORDERED: NITROGLYCERIN 2% OINTMENT 1 GM PACKET ONE (02:45)
[2018-12-26] MEDS: MORPHINE SULFATE 10 MG/ML INJ IV SCH ×2 (02:52→06:46)
[2018-12-26] MEDS ORDERED: NITROGLYCERIN 2% OINTMENT 1 GM PACKET TP ONE (03:10)
--- NOTE | 2018-12-26 06:32 | PDOC H&P ---
History of Present Illness Admission Date/PCP: 12/26/2018 01:35 Jenna DOS SANTOS MD Patient complains of: Dyspnea History of Present Illness: HARRIETT MCCAULEY is a 68 year old female who presented to the emergency room with acute onset dyspnea. She admits that approximately 3 hours prior to her arrival in the emergency room she suddenly developed severe dyspnea that persisted and gradually worsened until she called EMS. She admits a 3-day history of a mild cough and minimal shortness of breath at times related to the cough. She denies any other associated or accompanying signs or symptoms. She admits prior similar but not so severe episodes related to pneumonia. She further denies identification of any aggravating or ameliorating factors for her acute onset dyspnea. Upon EMS arrival patient was found to have an oxygen saturation of 65% and she was thus placed on CPAP and a Nitropaste patch was applied as her systolic blood pressure was 250. On her arrival in the emergency room the patient was still dyspneic and severely hypertensive. She was subsequently started on a nitroglycerin infusion for her hypertension and this also seemed to improve her dyspnea. Chest x-ray showed pulmonary edema. [place]BNP [place] [address]. Patient was subsequently admitted to the hospital for further evaluation and treatment. Past Medical History Cardiac Medical History: Reports: Hypertension Denies: Atrial Fibrillation, Congestive Heart Failure, Coronary Artery Disease Pulmonary Medical History: Reports: Bronchitis, Pneumonia, Respiratory Failure Denies: Asthma, Chronic Obstructive Pulmonary Disease (COPD) EENT Medical History: Denies: Cataracts, Ears - Hearing aids Neurological Medical History: Denies: Hemorrhagic CVA, Ischemic CVA, Multiple Sclerosis, Seizures Endocrine Medical History: Denies: Diabetes Mellitus Type 1, Diabetes Mellitus Type 2, Hyperthyroidism, Hypothyroidism, Obesity Renal/ Medical History: Reports: End Stage Renal Disease Denies: Nephrolithiasis Malignancy Medical History: Reports: None GI Medical History: Reports: Gastroesophageal Reflux Disease Denies: Cirrhosis, Hepatitis Musculoskeltal Medical History: Denies: Arthritis, Gout Skin Medical History: Denies: Eczema, Psoriasis Psychiatric Medical History: Reports: Depression Denies: Alcohol Dependency, Substance Abuse, Tobacco Dependency Traumatic Medical History: Reports: None Hematology: Denies: Anemia, Bleeding Tendencies Infectious Medical History: Reports: None Past Surgical History Past Surgical History: Reports: Vascular Surgery - HD fistula, Other - peritoneal catheter placement Social History Information Source: Patient Lives with: Spouse/Significant other Smoking Status: Never Smoker Frequency of Alcohol Use: None Hx Recreational Drug Use: No Drugs: None Hx Prescription Drug Abuse: No - Advance Directive Resuscitation Status: Full Code Surrogate healthcare decision maker:: Pollo Hebert Family History Family History: Hypertension Parental Family History Reviewed: Yes Children Family History Reviewed: No Sibling(s) Family History Reviewed.: Yes Medication/Allergy Home Medications: Carvedilol 25 mg PO Q12 11/25/18 Clonidine HCl 0.3 mg PO Q8 11/25/18 Duloxetine HCl 60 mg PO DAILY 11/25/18 Furosemide [Lasix 40 mg Tablet] 40 mg PO BID 11/25/18 Hydroxychloroquine Sulfate [Plaquenil 200 mg Tablet] 200 mg PO DAILY 11/25/18 Lubiprostone [Amitiza 24 Mcg Capsule] 24 mcg PO Q12 11/25/18 Megestrol Acetate 400 mg PO DAILY 11/25/18 Nifedipine [Nifedipine ER] 60 mg PO QHS 11/25/18 Oxycodone HCl [Oxy-Ir 5 mg Tablet] 5 mg PO Q6HP PRN 11/25/18 Pantoprazole Sodium 40 mg PO DAILY 11/25/18 Valacyclovir HCl [Valtrex 500 mg Tablet] 50 mg PO DAILY 11/25/18 Sevelamer Carbonate [Renvela] 800 mg PO TID 12/26/18 Allergies/Adverse Reactions: No Known Allergies Allergy (Verified 12/26/18 03:35) Review of Systems Constitutional: ABSENT: chills, fever(s) Eyes: ABSENT: visual disturbances, other - Eye pain Ears: ABSENT: hearing changes, other - Ear pain Nose, Mouth, and Throat: ABSENT: mouth pain, sore throat Cardiovascular: PRESENT: as per HPI, dyspnea on exertion, orthropnea. ABSENT: chest pain, edema, palpitations Respiratory: PRESENT: as per HPI, cough, dyspnea. ABSENT: sputum Gastrointestinal: ABSENT: abdominal pain, constipation, diarrhea, nausea, vomiting Genitourinary: ABSENT: dysuria, hematuria Musculoskeletal: ABSENT: back pain, joint swelling, muscle weakness Integumentary: ABSENT: pruritus, rash Neurological: ABSENT: confusion, convulsions, focal weakness, memory loss, syncope Psychiatric: ABSENT: anxiety, depression Endocrine: ABSENT: cold intolerance, heat intolerance Hematologic/Lymphatic: ABSENT: easy bleeding, easy bruising Physical Exam Vital Signs: Temp Pulse Resp BP Pulse Ox 97.6 F 92 0 L 202/125 H 100 12/25/18 23:27 12/25/18 23:27 12/26/18 00:05 12/26/18 00:05 12/26/18 00:05 Intake & Output 12/24/18 12/25/18 12/26/18 23:59 23:59 23:59 Intake Total 6 15 Balance 6 15 Weight 48.5 kg General appearance: PRESENT: cooperative, mild distress - Secondary to respirato ry work of breathing, other - On BiPAP Head exam: PRESENT: atraumatic, normocephalic Eye exam: ABSENT: conjunctival injection, scleral icterus Ear exam: PRESENT: normal external ear exam. ABSENT: bleeding, drainage Mouth exam: PRESENT: dry mucosa, neck supple Neck exam: PRESENT: JVD - Bilateral JVD at 30 degrees of elevation. ABSENT: thyromegaly, tracheal deviation Respiratory exam: PRESENT: rales - Bibasilar rales lower one half of the bilater al lung hardy, symmetrical, tachypnea, other - On BiPAP Cardiovascular exam: PRESENT: gallop - S4 gallop rhythm noted, RRR. ABSENT: clicks, rubs Pulses: PRESENT: normal radial pulses, normal dorsalis pedis pul Vascular exam: PRESENT: normal capillary refill. ABSENT: pallor GI/Abdominal exam: PRESENT: normal bowel sounds, soft Rectal exam: PRESENT: deferred Extremities exam: ABSENT: joint swelling, pedal edema Musculoskeletal exam: ABSENT: deformity, dislocation Neurological exam: PRESENT: alert, oriented to person, oriented to place, oriented to time, oriented to situation, CN II-XII grossly intact. ABSENT: motor sensory deficit Psychiatric exam: PRESENT: appropriate affect, normal mood Skin exam: PRESENT: dry, intact, warm. ABSENT: jaundice, rash, urticaria Results Laboratory Results: 12/25/18 23:31 12/26/18 00:31 12/25/18 12/25/18 12/26/18 23:31 23:31 00:31 WBC 7.7 RBC 3.85 Hgb 12.4 Hct 37.0 MCV 96 MCH 32.1 MCHC 33.4 RDW 20.7 H Plt Count 443 Seg Neutrophils % Not Reportable Lymphocytes % Not Reportable Monocytes % Not Reportable Eosinophils % Not Reportable Basophils % Not Reportable Absolute Neutrophils Not Reportable Absolute Lymphocytes Not Reportable Absolute Monocytes Not Reportable Absolute Eosinophils Not Reportable Absolute Basophils Not Reportable Sodium Cancelled 137.2 Potassium Cancelled 4.2 Chloride Cancelled 104 Carbon Dioxide Cancelled 27 Anion Gap Cancelled 6 BUN Cancelled 20 Creatinine Cancelled 3.25 H Est GFR ( Amer) Cancelled 17 L Est GFR (Non-Af Amer) Cancelled 14 L Glucose Cancelled 67 L Calcium Cancelled 8.1 L Total Bilirubin Cancelled 0.8 AST Cancelled 25 ALT Cancelled 22 Alkaline Phosphatase Cancelled 67 Total Protein Cancelled 5.5 L Albumin Cancelled 2.4 L 12/25/18 12/25/18 23:31 23:31 Troponin I Cancelled NT-Pro-B Natriuret Pep Cancelled EKG Comments: I personally read the EKG with the following findings: Normal sinus rhythm with a rate of 94, left ventricular hypertrophy with strain pattern in the lateral l maria elena, incomplete right bundle branch block. Impressions: Chest X-Ray 12/25/18 23:29 IMPRESSION: 1. Increasing volume loss in the right lung base when compared to the prior study. There is grossly stable persistent volume loss in the left lung base. Findings may be due to a combination of pleural fluid, edema, atelectasis and/or pneumonia. 2. Stable right IJ dialysis catheter. Status: Image reviewed by me - I have personally reviewed the chest x-ray with the following findings: Mild to moderate interstitial edema with cephalization of the pulmonary vasculature consistent with acute pulmonary edema. Mild ca rdiomegaly is noted. Assessment and Plan - Diagnosis (1) Hypertensive emergency Is this a current diagnosis for this admission?: Yes Plan: Patient was initially treated with a nitroglycerin infusion and this will be converted to a Nitropaste therapy. Patient will continue to receive hydralazine 20 mg IV every 4 hours as needed systolic blood pressure greater than 160 or diastolic blood pressure greater than 100. Patient will also receive metoprolol 5 mg IV every 4 hours as needed for control of blood pressure using the same parameters as the hydralazine. Additionally the patient will receive morphine sulfate 1 mg IV now and 1 mg IV repeated in 3 hours to reduce the pulmonary edema. Ongoing reassessment will be made on a clinical basis. Daily laboratories of a CBC, metabolic profile and magnesium level will be used to follow the patient's course of treatment and progress. A BNP will be evaluated on an initial and post treatment basis. (2) Pulmonary edema with congestive heart failure Is this a current diagnosis for this admission?: Yes Plan: Patient was initially treated with a nitroglycerin infusion and this will be converted to a Nitropaste therapy. Patient will continue to receive hydralazine 20 mg IV every 4 hours as needed systolic blood pressure greater than 160 or diastolic blood pressure greater than 100. Patient will also receive metoprolol 5 mg IV every 4 hours as needed for control of blood pressure using the same parameters as the hydralazine. Additionally the patient will receive morphine sulfate 1 mg IV now and 1 mg IV repeated in 3 hours to reduce the pulmonary edema. Ongoing reassessment will be made on a clinical basis. Daily laboratories of a CBC, metabolic profile and magnesium level will be used to follow the patient's course of treatment and progress. A BNP will be evaluated on an initial and post treatment basis. (3) Acute respiratory failure with hypoxia Is this a current diagnosis for this admission?: Yes Plan: Patient will receive supplemental oxygen via noninvasive airway pressure support devices such as BiPAP as required to maintain an adequate O2 saturation. Further intervention will be entertained if necessary. Her O2 sat will be monitored on a regular basis. (4) ESRD (end stage renal disease) on dialysis Is this a current diagnosis for this admission?: Yes Plan: Patient's brim rounder will be notified of her hospitalization so the plan for inpatient dialysis can be made as required. - Time Time Spent with patient: 25-34 minutes Medications reviewed and adjusted accordingly: Yes Anticipated discharge: Home - Inpatient Certification Based on my medical assessment, after consideration of the patient's comorbidities, presenting symptoms, or acuity I expect that the services needed warrant INPATIENT care.: Yes I certify that my determination is in accordance with my understanding of Medicare's requirements for reasonable and necessary INPATIENT services [42 CFR 412.3e].: Yes Medical Necessity: Significant Comorbidiites Make Outpatient Treatment Too Risky, Need Close Monitoring Due to Risk of Patient Decompensation, Need For Continuous Telemetry Monitoring, Risk of Complication if Not Cared For in Hospital
--- NOTE | 2018-12-26 06:34 | ADVANCED CARE ---
- Diagnosis (1) Hypertensive emergency Diagnosis Current: Yes (2) Pulmonary edema with congestive heart failure Diagnosis Current: Yes (3) Acute respiratory failure with hypoxia Diagnosis Current: Yes (4) ESRD (end stage renal disease) on dialysis Diagnosis Current: Yes Attendance: The patient, Pollo Hebert and myself. Resuscitation Status: Full Code Discussion: After brief discussion the patient has elected to be maintained as a full code resuscitation status patient for any cardiac or respiratory arrest that may occur during her hospital course. She has designated Pollo Hebert her son as her surrogate medical decision-maker. Care Planning Goals: 1. Patient will be full CODE STATUS throughout her hospital course. 2. Pollo Hebert is her designated surrogate medical decision-maker. Document(s) Completed: The following entries will be made into the patient's permanent medical record and her current medical record and orders via EMR entry: 1. Patient will be full CODE STATUS throughout her hospital course. 2. Pollo Hebert is her designated surrogate medical decision-maker. Time Spent: 7 minutes
[2018-12-26] MEDS ORDERED: MORPHINE SULFATE 10 MG/ML INJ ONE (06:41)
[2018-12-26] MEDS: PANTOPRAZOLE SODIUM 40 MG TABLET.DR PO SCH ×2 (06:43→17:25)
[2018-12-26] MEDS: HEPARIN SOD (PORCINE) 5,000 UNIT/ML 1 ML SYRINGE SUBCUT SCH ×3 (06:45→21:54)
[2018-12-26 07:59] LABS: CREATINE KINASE MB 0.99 ng/mL (<4.55); TROPONIN I 0.049 ng/mL
[2018-12-26] MEDS: ONDANSETRON HCL INJ/PF 4 MG/2 ML SDV IV PRN (08:39)
[2018-12-26] MEDS: ACETAMINOPHEN 325 MG TABLET PO PRN (08:39)
[2018-12-26] MEDS: DOCUSATE SODIUM 100 MG CAPSULE PO SCH ×2 (10:35→17:25)
[2018-12-26] MEDS: NITROGLYCERIN 2% OINTMENT 1 GM PACKET TP SCH ×3 (10:35→21:53)
[2018-12-26 13:44] LABS: CREATINE KINASE MB 1.1 ng/mL (<4.55); TROPONIN I 0.05 ng/mL
--- NOTE | 2018-12-26 21:06 | PDOC PROGRESS REPORT ---
Subjective Progress Note for:: 12/26/18 Subjective:: The patient reports feeling somewhat better. Breathing is easier. Reason For Visit: ACUTE PULMONARY EDEMA WITH CONGESTIVE HEART FAILUR Physical Exam Vital Signs: Temp Pulse Resp BP Pulse Ox 98.1 F 86 16 131/58 H 100 12/26/18 15:35 12/26/18 15:35 12/26/18 15:35 12/26/18 15:35 12/26/18 15:35 Intake & Output 12/25/18 12/26/18 12/27/18 06:59 06:59 06:59 Intake Total 105 118 Output Total 0 Balance 105 118 Weight 48.5 kg General appearance: PRESENT: no acute distress, thin - Thin and very frail-appea ring 68-year-old female laying in bed. Head exam: PRESENT: atraumatic, normocephalic Respiratory exam: PRESENT: rales, symmetrical, unlabored. ABSENT: accessory muscle use, rhonchi, tachypnea, wheezes Cardiovascular exam: PRESENT: RRR, +S1, +S2, systolic murmur - 2/6 GI/Abdominal exam: PRESENT: normal bowel sounds, soft. ABSENT: distended, tenderness Rectal exam: PRESENT: deferred Extremities exam: ABSENT: pedal edema Neurological exam: PRESENT: alert, awake, oriented to person, oriented to place, oriented to time, oriented to situation, other - Dysphonia-extremely low volume voice. Difficult to hear. Psychiatric exam: PRESENT: flat affect. ABSENT: agitated, anxious Focused psych exam: ABSENT: delusional, restlessness Results Laboratory Results: 12/25/18 23:31 12/26/18 00:31 12/25/18 12/25/18 12/26/18 23:31 23:31 00:31 WBC 7.7 RBC 3.85 Hgb 12.4 Hct 37.0 MCV 96 MCH 32.1 MCHC 33.4 RDW 20.7 H Plt Count 443 Seg Neutrophils % Not Reportable Lymphocytes % Not Reportable Monocytes % Not Reportable Eosinophils % Not Reportable Basophils % Not Reportable Absolute Neutrophils Not Reportable Absolute Lymphocytes Not Reportable Absolute Monocytes Not Reportable Absolute Eosinophils Not Reportable Absolute Basophils Not Reportable Sodium Cancelled 137.2 Potassium Cancelled 4.2 Chloride Cancelled 104 Carbon Dioxide Cancelled 27 Anion Gap Cancelled 6 BUN Cancelled 20 Creatinine Cancelled 3.25 H Est GFR ( Amer) Cancelled 17 L Est GFR (Non-Af Amer) Cancelled 14 L Glucose Cancelled 67 L Calcium Cancelled 8.1 L Total Bilirubin Cancelled 0.8 AST Cancelled 25 ALT Cancelled 22 Alkaline Phosphatase Cancelled 67 Total Protein Cancelled 5.5 L Albumin Cancelled 2.4 L 12/25/18 12/25/18 12/26/18 23:31 23:31 00:31 Creatine Kinase CK-MB (CK-2) Troponin I Cancelled 0.024 NT-Pro-B Natriuret Pep Cancelled 78775 H 12/26/18 12/26/18 12/26/18 07:25 07:25 13:08 Creatine Kinase 44 43 CK-MB (CK-2) 0.99 Troponin I 0.049 NT-Pro-B Natriuret Pep 12/26/18 13:08 Creatine Kinase CK-MB (CK-2) 1.10 Troponin I 0.050 NT-Pro-B Natriuret Pep Impressions: Chest X-Ray 12/25/18 23:29 IMPRESSION: 1. Increasing volume loss in the right lung base when compared to the prior study. There is grossly stable persistent volume loss in the left lung base. Findings may be due to a combination of pleural fluid, edema, atelectasis and/or pneumonia. 2. Stable right IJ dialysis catheter. Assessment and Plan - Diagnosis (1) Hypertensive emergency Is this a current diagnosis for this admission?: Yes Plan: Patient was initially treated with a nitroglycerin infusion and this will be converted to a Nitropaste therapy. Patient will continue to receive hydralazine 20 mg IV every 4 hours as needed systolic blood pressure greater than 160 or diastolic blood pressure greater than 100. Patient will also receive metoprolol 5 mg IV every 4 hours as needed for control of blood pressure using the same parameters as the hydralazine. Additionally the patient will receive morphine sulfate 1 mg IV now and 1 mg IV repeated in 3 hours to reduce the pulmonary edema. Ongoing reassessment will be made on a clinical basis. Daily laboratories of a CBC, metabolic profile and magnesium level will be used to follow the patient's course of treatment and progress. A BNP will be evaluated on an initial and post treatment basis. 12/26/2018-patient has much improved blood pressure this morning. The Nitropaste order ended. I have resumed her previous antihypertensive medications. Because she is an uric diuretics have been a place. We will monitor her blood pressure and adjust medications as required. (2) Pulmonary edema with congestive heart failure Is this a current diagnosis for this admission?: Yes Plan: Patient was initially treated with a nitroglycerin infusion and this will be converted to a Nitropaste therapy. Patient will continue to receive hydralazine 20 mg IV every 4 hours as needed systolic blood pressure greater than 160 or di astolic blood pressure greater than 100. Patient will also receive metoprolol 5 mg IV every 4 hours as needed for control of blood pressure using the same parameters as the hydralazine. Additionally the patient will receive morphine sulfate 1 mg IV now and 1 mg IV repeated in 3 hours to reduce the pulmonary edema. Ongoing reassessment will be made on a clinical basis. Daily laboratories of a CBC, metabolic profile and magnesium level will be used to follow the patient's course of treatment and progress. A BNP will be evaluated on an initial and post treatment basis. 12/26/2018-nitroglycerin and morphine utilized to help with breathing and pulmonary edema. She will have dialysis tomorrow to remove fluid. (3) Acute respiratory failure with hypoxia Is this a current diagnosis for this admission?: Yes Plan: Patient will receive supplemental oxygen via noninvasive airway pressure support devices such as BiPAP as required to maintain an adequate O2 saturation. Further intervention will be entertained if necessary. Her O2 sat will be monitored on a regular basis. Secondary to pulmonary edema and failure. Breathing is improved today. Continue to treat the cardiac issues. (4) ESRD (end stage renal disease) on dialysis Is this a current diagnosis for this admission?: Yes Plan: Patient's administrative staff supervisor will be notified of her hospitalization so the plan for inpatient dialysis can be made as required. 12/26/2018-the patient will likely receive hemodialysis tomorrow. If the patient is stable and blood pressures are adequately controlled consider discharge after hemodialysis. - Time Time Spent with patient: 15-24 minutes Medications reviewed and adjusted accordingly: Yes Anticipated discharge: Home
[2018-12-26 21:11] LABS: CREATINE KINASE MB 0.75 ng/mL (<4.55); TROPONIN I 0.036 ng/mL
[2018-12-26] MEDS: CARVEDILOL 12.5 MG TABLET PO SCH (21:52)
[2018-12-26] MEDS: NIFEDIPINE 30 MG TAB.ER.24 PO SCH (21:53)
[2018-12-26] MEDS: CLONIDINE HCL 0.2 MG TABLET PO SCH (21:53)
[2018-12-26] MEDS: ZOLPIDEM TARTRATE 5 MG TABLET PO PRN (21:55)
--- NOTE | 2018-12-26 22:33 | EKG REPORT ---
SEVERITY:- ABNORMAL ECG - SINUS RHYTHM INCOMPLETE RIGHT BUNDLE BRANCH BLOCK : Confirmed by: Aquilino Coelho 26-Dec-2018 22:31:37
[2018-12-27] MEDS: HYDRALAZINE HCL INJ/PF 20 MG/1 ML SDV IV PRN ×2 (00:13→23:59)
[2018-12-27] MEDS: NITROGLYCERIN 2% OINTMENT 1 GM PACKET TP SCH ×4 (03:26→22:15)
[2018-12-27 04:27] LABS: HEMATOCRIT 28.2 % (36.0-47.0); MEAN CORPUSCULAR HEMOGLOBIN 32.2 pg (27.0-33.4); MEAN CORPUSCULAR HGB CONC 33.8 g/dL (32.0-36.0); MEAN CORPUSCULAR VOLUME 95 fl (80-97); PLATELET COUNT 291 10^3/uL (150-450); RED BLOOD COUNT 2.96 10^6/uL (3.72-5.28); RED CELL DISTRIBUTION WIDTH 19.5 % (11.5-14.0)
[2018-12-27 04:38] LABS: HEMOGLOBIN 9.5 g/dL (12.0-15.5)
[2018-12-27 04:44] LABS: ANION GAP 6 (5-19); BLOOD UREA NITROGEN 24 mg/dL (7-20); CALCIUM 7.7 mg/dL (8.4-10.2); CARBON DIOXIDE 26 mmol/L (22-30); CHLORIDE 104 mmol/L (98-107); POTASSIUM 4.3 mmol/L (3.6-5.0); SODIUM 135.9 mmol/L (137-145)
[2018-12-27 04:50] LABS: GLUCOSE 47 mg/dL (75-110)
[2018-12-27] MEDS: PANTOPRAZOLE SODIUM 40 MG TABLET.DR PO SCH ×2 (06:20→17:16)
[2018-12-27] MEDS: CLONIDINE HCL 0.2 MG TABLET PO SCH ×3 (06:20→22:14)
[2018-12-27] MEDS: HEPARIN SOD (PORCINE) 5,000 UNIT/ML 1 ML SYRINGE SUBCUT SCH ×3 (06:20→22:16)
[2018-12-27] MEDS: SEVELAMER HCL 800 MG TABLET PO SCH ×3 (07:54→17:16)
[2018-12-27] MEDS ORDERED: EPOETIN ALFA INJ 20000 UNIT/1 ML VIAL (RENAL) IV PRN (09:51)
[2018-12-27] MEDS ORDERED: EPOETIN ALFA-EPBX 10,000 UNIT/ML VIAL (RENAL) IV PRN (10:02)
[2018-12-27] MEDS: DOCUSATE SODIUM 100 MG CAPSULE PO SCH ×2 (11:36→17:16)
[2018-12-27] MEDS: DULOXETINE HCL 30 MG CAPSULE.DR PO SCH (11:36)
[2018-12-27] MEDS: FUROSEMIDE 40 MG TABLET PO SCH ×2 (11:36→17:16)
[2018-12-27] MEDS: CARVEDILOL 12.5 MG TABLET PO SCH ×2 (11:36→22:13)
--- NOTE | 2018-12-27 12:40 | PDOC CONSULTATION ---
Consultation Consult Date: 12/27/18 Provider Consulted: Jenna DOS SANTOS Consult reason:: ESRD on hemodialysis/congestive heart failure/hypertensive urgency. History of Present Illness Admission Date/PCP: 12/26/18 02:09 Jenna DOS SANTOS MD History of Present Illness: HARRIETT MCCAULEY is a 68 year old female with a history of ESRD in the background of hypertension, history of congestive heart failure who presented to the emergency room with sub - acute onset dyspnea. Apparently she developed s hortness of breath rather subacute in onset 4 to 5 hours before her arrival to the ER. She also has been having some cough with expectoration for the last few days without any fever or chills. No complaints of any chest pains. Evaluations in the ER revealed that the patient was hypoxic and was in congestive heart failure with severe hypertension with systolic between 220 and 250. She denies noncompliance with medications even though she has had this problems in the past. Of lately she has been rather generally deteriorating with lack of appetite and loss of weight. She was begun on IV nitroglycerin and presently patient is feeling a whole lot better. She is currently undergoing dialysis without any issues. Other signs are better though still uncontrolled blood pressure. Labs and medications were reviewed with the patient. Dialysis orders were reviewed with the treating dialysis nurse. Past Medical History Cardiac Medical History: Reports: Hypertension-primary Denies: Atrial Fibrillation, Coronary Artery Disease Pulmonary Medical History: Reports: Bronchitis, Pneumonia, Respiratory Failure Denies: Asthma, Chronic Obstructive Pulmonary Disease (COPD) EENT Medical History: Denies: Cataracts, Ears - Hearing aids Neurological Medical History: Denies: Hemorrhagic CVA, Ischemic CVA, Multiple Sclerosis, Seizures Endocrine Medical History: Denies: Diabetes Mellitus Type 1, Diabetes Mellitus Type 2, Hyperthyroidism, Hypothyroidism, Obesity Complications of Diabetes: Reports: None Renal/ Medical History: Reports: End Stage Renal Disease, Secondary Hyperparathyroidism Denies: Nephrolithiasis Malignancy Medical History: Reports: None GI Medical History: Reports: Gastroesophageal Reflux Disease Denies: Cirrhosis, Hepatitis Musculoskeltal Medical History: Denies: Arthritis, Gout Skin Medical History: Denies: Eczema, Psoriasis Psychiatric Medical History: Reports: Depression Denies: Alcohol Dependency, Substance Abuse, Tobacco Dependency Traumatic Medical History: Reports: None Infectious Medical History: Reports: None Hematology Medical History: Reports Anemia of Chronic Kidney Disease Past Surgical History Past Surgical History: Reports: Vascular Surgery - HD fistula, Other - peritoneal catheter placement Social History Lives with: Spouse/Significant other Smoking Status: Never Smoker Frequency of Alcohol Use: None Hx Recreational Drug Use: No Drugs: None Hx Prescription Drug Abuse: No - Advance Directive Resuscitation Status: Full Code Family History Parental Family History Reviewed: Yes - Negative for ESRD. Children Family History Reviewed: No Sibling(s) Family History Reviewed.: No Medication/Allergy Home Medications: Carvedilol 25 mg PO Q12 11/25/18 Clonidine HCl 0.3 mg PO Q8 11/25/18 Duloxetine HCl 60 mg PO DAILY 11/25/18 Furosemide [Lasix 40 mg Tablet] 40 mg PO BID 11/25/18 Hydroxychloroquine Sulfate [Plaquenil 200 mg Tablet] 200 mg PO DAILY 11/25/18 Lubiprostone [Amitiza 24 Mcg Capsule] 24 mcg PO Q12 11/25/18 Megestrol Acetate 400 mg PO DAILY 11/25/18 Nifedipine [Nifedipine ER] 60 mg PO QHS 11/25/18 Oxycodone HCl [Oxy-Ir 5 mg Tablet] 5 mg PO Q6HP PRN 11/25/18 Pantoprazole Sodium 40 mg PO DAILY 11/25/18 Valacyclovir HCl [Valtrex 500 mg Tablet] 50 mg PO DAILY 11/25/18 Cinacalcet HCl [Sensipar 30 mg Tablet] 30 mg PO WSUPPER 12/26/18 Sevelamer Carbonate [Renvela] 800 mg PO MEALS 12/26/18 Allergies/Adverse Reactions: No Known Allergies Allergy (Verified 12/26/18 03:35) Review of Systems Constitutional: PRESENT: fatigue, weakness, weight loss. ABSENT: anorexia, chills, fever(s) Cardiovascular: PRESENT: dyspnea on exertion. ABSENT: chest pain, edema, orthropnea, palpitations Respiratory: PRESENT: cough, dyspnea, sputum. ABSENT: hemoptysis Gastrointestinal: ABSENT: abdominal pain, bloating, coffee ground emesis, diarrhea, dysphagia, heartburn, hematemesis, hematochezia, nausea, vomiting Genitourinary: ABSENT: dysuria, hematuria Musculoskeletal: ABSENT: back pain, deformity, joint swelling Integumentary: ABSENT: erythema, lesions, pruritus, rash Neurological: ABSENT: abnormal movements, abnormal speech, confusion, convulsions, focal weakness, frequent falls, lack of coordination, syncope Psychiatric: PRESENT: depression. ABSENT: anxiety Hematologic/Lymphatic: ABSENT: easy bleeding, easy bruising Physical Exam Vital Signs: Temp Pulse Resp BP Pulse Ox 98.2 F 87 18 155/73 H 95 12/27/18 11:34 12/27/18 11:34 12/27/18 11:34 12/27/18 11:34 12/27/18 11:34 Intake & Output 12/26/18 12/27/18 12/28/18 06:59 06:59 06:59 Intake Total 105 118 Output Total 0 Balance 105 118 Weight 48.5 kg 50.9 kg General appearance: PRESENT: no acute distress Eye exam: PRESENT: EOMI, PERRLA. ABSENT: nystagmus Ear exam: PRESENT: normal external ear exam Mouth exam: PRESENT: moist, neck supple Neck exam: ABSENT: lymphadenopathy, meningismus, tenderness, thyromegaly, tracheal deviation Respiratory exam: PRESENT: clear to auscultation jamil, decreased breath sounds, symmetrical. ABSENT: crackles Cardiovascular exam: PRESENT: +S1, +S2 GI/Abdominal exam: PRESENT: normal bowel sounds, soft. ABSENT: organomegaly, tenderness Extremities exam: ABSENT: pedal edema Neurological exam: PRESENT: alert, awake, oriented to person, oriented to place, oriented to time Psychiatric exam: PRESENT: anxious Skin exam: ABSENT: cyanosis, intact, mottled, rash Results Laboratory Results: 12/27/18 03:50 12/27/18 03:50 12/27/18 12/27/18 03:50 03:50 WBC 5.0 RBC 2.96 L Hgb 9.5 L D Hct 28.2 L MCV 95 MCH 32.2 MCHC 33.8 RDW 19.5 H Plt Count 291 Sodium 135.9 L Potassium 4.3 Chloride 104 Carbon Dioxide 26 Anion Gap 6 BUN 24 H Creatinine 4.05 H Est GFR ( Amer) 13 L Est GFR (Non-Af Amer) 11 L Glucose 47 L Calcium 7.7 L Magnesium 1.9 12/25/18 12/25/18 12/26/18 23:31 23:31 00:31 Creatine Kinase CK-MB (CK-2) Troponin I Cancelled 0.024 NT-Pro-B Natriuret Pep Cancelled [id number] H 12/26/18 12/26/18 12/26/18 07:25 07:25 13:08 Creatine Kinase 44 43 CK-MB (CK-2) 0.99 Troponin I 0.049 NT-Pro-B Natriuret Pep 12/26/18 12/26/18 12/26/18 13:08 20:28 20:28 Creatine Kinase 40 CK-MB (CK-2) 1.10 0.75 Troponin I 0.050 0.036 NT-Pro-B Natriuret Pep Impressions: Chest X-Ray 12/25/18 23:29 IMPRESSION: 1. Increasing volume loss in the right lung base when compared to the prior study. There is grossly stable persistent volume loss in the left lung base. Findings may be due to a combination of pleural fluid, edema, atelectasis and/or pneumonia. 2. Stable right IJ dialysis catheter. Assessment & Plan - Diagnosis (1) Acute exacerbation of CHF (congestive heart failure) Qualifiers: Heart failure type: unspecified Qualified Code(s): I50.9 - Heart failure, unspecified Plan: Clinically she looks better with ultrafiltration of fluid while undergoing dialysis. Medically more compensated at the moment. Continue present lines of management. Advised compliance with medications and diet. (2) Acute respiratory failure with hypoxia Is this a current diagnosis for this admission?: Yes Plan: Slightly better since ultrafiltration and O2 saturation seems better even though she is still on nasal cannula. (3) ESRD (end stage renal disease) on dialysis Is this a current diagnosis for this admission?: Yes Plan: Patient undergoing dialysis currently. Dialysis is being supervised to ensure safe and smooth procedure. Vital signs are stable. Plan to remove between 3 and 4 L as tolerated. Dialysis orders were reviewed with the treating dialysis nurse. (4) Hypertensive emergency Is this a current diagnosis for this admission?: Yes Plan: Blood pressures a whole lot better than when she came in along with her improvement of her heart failure. See how she responds to dialysis at the end of it. Advised compliance with her medications.
--- NOTE | 2018-12-27 14:15 | PDOC PROGRESS REPORT ---
Subjective Progress Note for:: 12/27/18 Subjective:: The patient is resting comfortably. She is breathing easy as she had dialysis this morning. Reason For Visit: ACUTE PULMONARY EDEMA WITH CONGESTIVE HEART FAILUR Physical Exam Vital Signs: Temp Pulse Resp BP Pulse Ox 98.2 F 87 18 155/73 H 95 12/27/18 11:34 12/27/18 11:34 12/27/18 11:34 12/27/18 11:34 12/27/18 11:34 Intake & Output 12/26/18 12/27/18 12/28/18 06:59 06:59 06:59 Intake Total 105 118 120 Output Total 0 Balance 105 118 120 Weight 48.5 kg 50.9 kg General appearance: PRESENT: no acute distress, thin, well-developed Head exam: PRESENT: atraumatic, normocephalic Eye exam: PRESENT: conjunctiva pale. ABSENT: scleral icterus Ear exam: PRESENT: normal external ear exam Mouth exam: PRESENT: moist, tongue midline Respiratory exam: PRESENT: clear to auscultation jamil, symmetrical, unlabored. ABSENT: accessory muscle use, rales, rhonchi, tachypnea, wheezes Cardiovascular exam: PRESENT: RRR, +S1, +S2, systolic murmur - 2/6 GI/Abdominal exam: PRESENT: normal bowel sounds, soft. ABSENT: distended, tenderness Rectal exam: PRESENT: deferred Gentrourinary exam: ABSENT: indwelling catheter Extremities exam: ABSENT: joint swelling, pedal edema Musculoskeletal exam: PRESENT: normal inspection Neurological exam: PRESENT: alert, awake, oriented to person, oriented to place, oriented to time, oriented to situation. ABSENT: CN II-XII grossly intact Psychiatric exam: PRESENT: appropriate affect, normal mood. ABSENT: agitated, anxious Focused psych exam: ABSENT: delusional, restlessness Skin exam: PRESENT: dry, normal color, warm. ABSENT: rash Results Laboratory Results: 12/27/18 03:50 12/27/18 03:50 12/27/18 12/27/18 03:50 03:50 WBC 5.0 RBC 2.96 L Hgb 9.5 L D Hct 28.2 L MCV 95 MCH 32.2 MCHC 33.8 RDW 19.5 H Plt Count 291 Sodium 135.9 L Potassium 4.3 Chloride 104 Carbon Dioxide 26 Anion Gap 6 BUN 24 H Creatinine 4.05 H Est GFR ( Amer) 13 L Est GFR (Non-Af Amer) 11 L Glucose 47 L Calcium 7.7 L Magnesium 1.9 12/25/18 12/25/18 12/26/18 23:31 23:31 00:31 Creatine Kinase CK-MB (CK-2) Troponin I Cancelled 0.024 NT-Pro-B Natriuret Pep Cancelled [id number] H 12/26/18 12/26/18 12/26/18 07:25 07:25 13:08 Creatine Kinase 44 43 CK-MB (CK-2) 0.99 Troponin I 0.049 NT-Pro-B Natriuret Pep 12/26/18 12/26/18 12/26/18 13:08 20:28 20:28 Creatine Kinase 40 CK-MB (CK-2) 1.10 0.75 Troponin I 0.050 0.036 NT-Pro-B Natriuret Pep Impressions: Chest X-Ray 12/25/18 23:29 IMPRESSION: 1. Increasing volume loss in the right lung base when compared to the prior study. There is grossly stable persistent volume loss in the left lung base. Findings may be due to a combination of pleural fluid, edema, atelectasis and/or pneumonia. 2. Stable right IJ dialysis catheter. Assessment and Plan - Diagnosis (1) Hypertensive emergency Is this a current diagnosis for this admission?: Yes Plan: Patient was initially treated with a nitroglycerin infusion and this will be converted to a Nitropaste therapy. Patient will continue to receive hydralazine 20 mg IV every 4 hours as needed systolic blood pressure greater than 160 or diastolic blood pressure greater than 100. Patient will also receive metoprolol 5 mg IV every 4 hours as needed for control of blood pressure using the same parameters as the hydralazine. Additionally the patient will receive morphine sulfate 1 mg IV now and 1 mg IV repeated in 3 hours to reduce the pulmonary jacoby a. Ongoing reassessment will be made on a clinical basis. Daily laboratories of a CBC, metabolic profile and magnesium level will be used to follow the patient's course of treatment and progress. A BNP will be evaluated on an initial and post treatment basis. 12/26/2018-patient has much improved blood pressure this morning. The Nitropaste order ended. I have resumed her previous antihypertensive medications. Because she is an uric diuretics have been a place. We will monitor her blood pressure and adjust medications as required. 12/27/2018-the patient is back on her normal regimen. Her pressure still slightly high but much better than during admission. She did have dialysis this morning. We will continue her same medications. (2) Pulmonary edema with congestive heart failure Is this a current diagnosis for this admission?: Yes Plan: Patient was initially treated with a nitroglycerin infusion and this will be c onverted to a Nitropaste therapy. Patient will continue to receive hydralazine 20 mg IV every 4 hours as needed systolic blood pressure greater than 160 or diastolic blood pressure greater than 100. Patient will also receive metoprolol 5 mg IV every 4 hours as needed for control of blood pressure using the same parameters as the hydralazine. Additionally the patient will receive morphine sulfate 1 mg IV now and 1 mg IV repeated in 3 hours to reduce the pulmonary edema. Ongoing reassessment will be made on a clinical basis. Daily laboratories of a CBC, metabolic profile and magnesium level will be used to follow the patient's course of treatment and progress. A BNP will be evaluated on an initial and post treatment basis. 12/26/2018-nitroglycerin and morphine utilized to help with breathing and pulmonary edema. She will have dialysis tomorrow to remove fluid. 12/27/2018-dialysis has helped remove fluid. She is also back on her medications. I mistakenly thought she did not produce urine. She does produce urine and she is on furosemide. Continue to monitor intake and output. Breathing is much improved. (3) Acute respiratory failure with hypoxia Is this a current diagnosis for this admission?: Yes Plan: Patient will receive supplemental oxygen via noninvasive airway pressure support devices such as BiPAP as required to maintain an adequate O2 saturation. Further intervention will be entertained if necessary. Her O2 sat will be monitored on a regular basis. 12/26/2018-secondary to pulmonary edema and failure. Breathing is improved today. Continue to treat the cardiac issues. 12/27/2018-patient is back on room air. Since she does not wear BiPAP or CPAP at home we will remove the BiPAP machine from her room. (4) ESRD (end stage renal disease) on dialysis Is this a current diagnosis for this admission?: Yes Plan: Patient's telephone mechanic will be notified of her hospitalization so the plan for inpatient dialysis can be made as required. 12/26/2018-the patient will likely receive hemodialysis tomorrow. If the patient is stable and blood pressures are adequately controlled consider discharge after hemodialysis. 12/27/2018-the patient did have hemodialysis today. She feels much better. Please see note from nephrology. Net fluid removed during hemodialysis is not charted as yet. - Time Time Spent with patient: Less than 15 minutes Medications reviewed and adjusted accordingly: Yes Anticipated discharge: Home - Plan Summary Plan Summary: The patient usually sees Dr. Carter. He is back in the office and will see the patient tomorrow. Thank you for allowing us to participate in the care of this very pleasant woman.
[2018-12-27] MEDS: NIFEDIPINE 30 MG TAB.ER.24 PO SCH (22:15)
[2018-12-27] MEDS: ZOLPIDEM TARTRATE 5 MG TABLET PO PRN (22:24)
[2018-12-28 04:13] LABS: HEMATOCRIT 32.4 % (36.0-47.0); HEMOGLOBIN 10.9 g/dL (12.0-15.5); MEAN CORPUSCULAR HEMOGLOBIN 31.9 pg (27.0-33.4); MEAN CORPUSCULAR HGB CONC 33.5 g/dL (32.0-36.0); MEAN CORPUSCULAR VOLUME 95 fl (80-97); PLATELET COUNT 284 10^3/uL (150-450); RED BLOOD COUNT 3.41 10^6/uL (3.72-5.28); WHITE BLOOD COUNT 4.8 10^3/uL (4.0-10.5)
[2018-12-28 04:37] LABS: BLOOD UREA NITROGEN 14 mg/dL (7-20); CALCIUM 8.2 mg/dL (8.4-10.2); CHLORIDE 103 mmol/L (98-107); GLUCOSE 84 mg/dL (75-110)
[2018-12-28 04:42] LABS: CARBON DIOXIDE 32 mmol/L (22-30); SODIUM 138.3 mmol/L (137-145)
[2018-12-28 04:45] LABS: ANION GAP 3 (5-19)
[2018-12-28] MEDS: NITROGLYCERIN 2% OINTMENT 1 GM PACKET TP SCH (05:16)
[2018-12-28] MEDS: HEPARIN SOD (PORCINE) 5,000 UNIT/ML 1 ML SYRINGE SUBCUT SCH ×3 (05:17→21:39)
[2018-12-28] MEDS: CLONIDINE HCL 0.2 MG TABLET PO SCH ×3 (05:17→21:40)
[2018-12-28] MEDS: PANTOPRAZOLE SODIUM 40 MG TABLET.DR PO SCH ×2 (05:17→17:14)
--- NOTE | 2018-12-28 08:24 | PDOC PROGRESS REPORT ---
Subjective Progress Note for:: 12/28/18 Subjective:: dyspnea gone. Still L sciatica Reason For Visit: ACUTE PULMONARY EDEMA WITH CONGESTIVE HEART FAILUR Physical Exam Vital Signs: Temp Pulse Resp BP Pulse Ox 98.1 F 84 15 129/62 H 95 12/28/18 04:02 12/28/18 04:02 12/28/18 04:02 12/28/18 04:02 12/28/18 04:02 Intake & Output 12/26/18 12/27/18 12/28/18 07:59 07:59 07:59 Intake Total 105 118 360 Output Total 0 3800 Balance 105 118 -3440 Weight 106 lb 14.787 oz 112 lb 3.445 oz 102 lb 1.184 oz General appearance: PRESENT: no acute distress Respiratory exam: PRESENT: clear to auscultation jamil Cardiovascular exam: ABSENT: diastolic murmur, irregular rhythm, systolic murmur GI/Abdominal exam: ABSENT: mass, organolmegaly, tenderness Extremities exam: ABSENT: pedal edema Neurological exam: PRESENT: oriented to situation Psychiatric exam: PRESENT: appropriate affect Results Laboratory Results: Abnormal - 24 hr 12/28/18 12/28/18 03:56 03:56 RBC 3.41 L Hgb 10.9 L Hct 32.4 L RDW 20.0 H Carbon Dioxide 32 H Anion Gap 3 L Creatinine 2.98 H Est GFR ( Amer) 19 L Est GFR (Non-Af Amer) 16 L Calcium 8.2 L Impressions: Chest X-Ray 12/25/18 23:29 IMPRESSION: 1. Increasing volume loss in the right lung base when compared to the prior study. There is grossly stable persistent volume loss in the left lung base. Findings may be due to a combination of pleural fluid, edema, atelectasis and/or pneumonia. 2. Stable right IJ dialysis catheter. Assessment & Plan - Diagnosis (1) Acute respiratory failure with hypoxia Is this a current diagnosis for this admission?: Yes (2) Pulmonary edema with congestive heart failure Is this a current diagnosis for this admission?: Yes Plan: more renal than cardiac. Improved. Stop nitro paste (3) ESRD (end stage renal disease) on dialysis Is this a current diagnosis for this admission?: Yes Plan: bp has been very labile recently with ER vists for low and for high on this admission. I suspect this limits how much fluid can be dialyzed away. Will try to adjust bp meds. (4) Membranous glomerulonephritis with nephrosis Is this a current diagnosis for this admission?: Yes (5) Chronic lupus nephritis Is this a current diagnosis for this admission?: Yes (6) Asthma, mild intermittent Qualifiers: Asthma complication type: uncomplicated Qualified Code(s): J45.20 - Mild intermittent asthma, uncomplicated Is this a current diagnosis for this admission?: Yes (7) RLL pneumonia Qualifiers: Pneumonia type: due to unspecified organism Qualified Code(s): J18.1 - Lobar pneumonia, unspecified organism Is this a current diagnosis for this admission?: Yes Plan: With normal temp and wbc, I doubt. Has other reasons for BLL opacity. Stop antibiotics. (8) Sciatica of left side Is this a current diagnosis for this admission?: Yes (9) Herpes stomatitis Is this a current diagnosis for this admission?: Yes - Inpatient Certification Based on my medical assessment, after consideration of the patient's comorbidities, presenting symptoms, or acuity I expect that the services needed warrant INPATIENT care.: Yes I certify that my determination is in accordance with my understanding of Medicare's requirements for reasonable and necessary INPATIENT services [42 CFR 412.3e].: Yes Medical Necessity: Failure to Improve With Outpatient Therapy, Significant Comorbidiites Make Outpatient Treatment Too Risky, Need Close Monitoring Due to Risk of Patient Decompensation, Need For Continuous Telemetry Monitoring, Need for IV Antibiotics, Risk of Complication if Not Cared For in Hospital, Risk of Diagnosis Which Will Require Inpatient Eval/Care/Monitoring
[2018-12-28] MEDS: SEVELAMER HCL 800 MG TABLET PO SCH ×3 (08:30→17:08)
[2018-12-28] MEDS: DOCUSATE SODIUM 100 MG CAPSULE PO SCH ×2 (09:18→17:07)
[2018-12-28] MEDS: DULOXETINE HCL 30 MG CAPSULE.DR PO SCH (09:18)
[2018-12-28] MEDS: FUROSEMIDE 40 MG TABLET PO SCH ×2 (09:18→17:07)
[2018-12-28] MEDS: CARVEDILOL 12.5 MG TABLET PO SCH ×2 (09:19→21:39)
[2018-12-28] MEDS: ACETAMINOPHEN 325 MG TABLET PO PRN (17:08)
[2018-12-28] MEDS: OXYCODONE HCL IR 5 MG TABLET PO PRN (18:41)
--- NOTE | 2018-12-28 20:03 | PDOC PROGRESS REPORT ---
Subjective Progress Note for:: 12/28/18 Subjective:: Patient was seen laying in her bed. At the time she had me talk with her and her son who was there via cell phone. She claims that she still has some shortness of breath because she can not complete a full sentance without having to stop. Denies chest pain, n/v/d/c. Reason For Visit: ACUTE PULMONARY EDEMA WITH CONGESTIVE HEART FAILUR Physical Exam Vital Signs: Temp Pulse Resp BP Pulse Ox 99.0 F 77 19 140/73 H 97 12/28/18 11:18 12/28/18 14:00 12/28/18 11:18 12/28/18 11:18 12/28/18 11:18 Intake & Output 12/27/18 12/28/18 12/29/18 06:59 06:59 06:59 Intake Total 118 360 220 Output Total 0 3800 Balance 118 -3440 220 Weight 50.9 kg 46.3 kg General appearance: PRESENT: no acute distress, well-developed, well-nourished Mouth exam: PRESENT: moist, neck supple Neck exam: ABSENT: JVD, tracheal deviation Respiratory exam: PRESENT: decreased breath sounds - -in the bases. ABSENT: accessory muscle use, clear to auscultation jamil, crackles, rales, rhonchi, wheezes Cardiovascular exam: PRESENT: +S1, +S2 GI/Abdominal exam: PRESENT: normal bowel sounds, soft. ABSENT: organomegaly, tenderness Extremities exam: ABSENT: pedal edema, +1 edema, +2 edema Musculoskeletal exam: PRESENT: normal inspection. ABSENT: tenderness Neurological exam: PRESENT: alert, awake, oriented to person, oriented to place, oriented to time, oriented to situation Psychiatric exam: PRESENT: appropriate affect, normal mood Skin exam: PRESENT: dry, intact, warm Results Laboratory Results: 12/28/18 03:56 12/28/18 03:56 12/28/18 12/28/18 03:56 03:56 WBC 4.8 RBC 3.41 L Hgb 10.9 L Hct 32.4 L MCV 95 MCH 31.9 MCHC 33.5 RDW 20.0 H Plt Count 284 Sodium 138.3 Potassium 4.0 Chloride 103 Carbon Dioxide 32 H Anion Gap 3 L BUN 14 Creatinine 2.98 H Est GFR ( Amer) 19 L Est GFR (Non-Af Amer) 16 L Glucose 84 Calcium 8.2 L Magnesium 1.9 12/25/18 12/25/18 12/26/18 23:31 23:31 00:31 Creatine Kinase CK-MB (CK-2) Troponin I Cancelled 0.024 NT-Pro-B Natriuret Pep Cancelled [id number] H 12/26/18 12/26/18 12/26/18 07:25 07:25 13:08 Creatine Kinase 44 43 CK-MB (CK-2) 0.99 Troponin I 0.049 NT-Pro-B Natriuret Pep 12/26/18 12/26/18 12/26/18 13:08 20:28 20:28 Creatine Kinase 40 CK-MB (CK-2) 1.10 0.75 Troponin I 0.050 0.036 NT-Pro-B Natriuret Pep Impressions: Chest X-Ray 12/25/18 23:29 IMPRESSION: 1. Increasing volume loss in the right lung base when compared to the prior study. There is grossly stable persistent volume loss in the left lung base. Findings may be due to a combination of pleural fluid, edema, atelectasis and/or pneumonia. 2. Stable right IJ dialysis catheter. Assessment & Plan - Diagnosis (1) Hypertensive emergency Is this a current diagnosis for this admission?: Yes Plan: bp medications are currently being adjusted. Previously last week her home health aid got confused with what medications she was taking so she did not give any. Recommend on discharge that a list of medications is given to the family with clear indications of what needs stopped and what needs to be given. I will follow up in the dialysis unit with making sure the family understands her medication regiment. Currently would like to have her in the hospital a little longer until her bp is more stable. This is due to the confusion that happens when adjusting her medications as outpatient. (2) Acute exacerbation of CHF (congestive heart failure) Qualifiers: Heart failure type: unspecified Qualified Code(s): I50.9 - Heart failure, unspecified Plan: will look to remove more fluid with dialysis. (3) Acute respiratory failure with hypoxia Is this a current diagnosis for this admission?: Yes Plan: improving, removing more fluid with dialysis tomorrow. (4) ESRD (end stage renal disease) on dialysis Is this a current diagnosis for this admission?: Yes Plan: placing orders for dialysis tomorrow - Notes Notes: patient was discussed with Dr. Mendoza
[2018-12-28] MEDS: NIFEDIPINE 30 MG TAB.ER.24 PO SCH (21:40)
[2018-12-29] MEDS: HYDRALAZINE HCL INJ/PF 20 MG/1 ML SDV IV PRN (00:43)
[2018-12-29] MEDS: OXYCODONE HCL IR 5 MG TABLET PO PRN ×3 (01:02→17:59)
[2018-12-29] MEDS ORDERED: EPOETIN ALFA-EPBX 10,000 UNIT/ML VIAL (RENAL) IV PRN (05:00)
[2018-12-29] MEDS ORDERED: EPOETIN ALFA INJ 20000 UNIT/1 ML VIAL (RENAL) IV PRN (05:00)
[2018-12-29] MEDS: HEPARIN SOD (PORCINE) 5,000 UNIT/ML 1 ML SYRINGE SUBCUT SCH ×3 (05:33→21:11)
[2018-12-29] MEDS: PANTOPRAZOLE SODIUM 40 MG TABLET.DR PO SCH ×2 (05:33→17:13)
[2018-12-29] MEDS: CLONIDINE HCL 0.2 MG TABLET PO SCH ×3 (05:33→21:10)
[2018-12-29 06:40] LABS: HEMATOCRIT 32.6 % (36.0-47.0); HEMOGLOBIN 10.9 g/dL (12.0-15.5); MEAN CORPUSCULAR HEMOGLOBIN 31.7 pg (27.0-33.4); MEAN CORPUSCULAR HGB CONC 33.5 g/dL (32.0-36.0); MEAN CORPUSCULAR VOLUME 95 fl (80-97); PLATELET COUNT 297 10^3/uL (150-450); RED BLOOD COUNT 3.44 10^6/uL (3.72-5.28); WHITE BLOOD COUNT 4.2 10^3/uL (4.0-10.5)
[2018-12-29 06:48] LABS: BLOOD UREA NITROGEN 18 mg/dL (7-20); CALCIUM 8.7 mg/dL (8.4-10.2); GLUCOSE 86 mg/dL (75-110); POTASSIUM 4.2 mmol/L (3.6-5.0)
[2018-12-29 06:53] LABS: CARBON DIOXIDE 32 mmol/L (22-30); CHLORIDE 104 mmol/L (98-107); SODIUM 137.4 mmol/L (137-145)
[2018-12-29 06:59] LABS: RED CELL DISTRIBUTION WIDTH 19.6 % (11.5-14.0)
[2018-12-29 07:06] LABS: ANION GAP 1 (5-19)
--- NOTE | 2018-12-29 07:19 | PDOC PROGRESS REPORT ---
Subjective Progress Note for:: 12/29/18 Subjective:: 4d no stool. L sciatica. No dyspnea. Reason For Visit: ACUTE PULMONARY EDEMA WITH CONGESTIVE HEART FAILUR Physical Exam Vital Signs: Temp Pulse Resp BP Pulse Ox 98.6 F 85 20 146/73 H 95 12/29/18 03:56 12/29/18 03:56 12/29/18 03:56 12/29/18 03:56 12/29/18 03:56 Intake & Output 12/27/18 12/28/18 12/29/18 07:59 07:59 07:59 Intake Total 118 360 220 Output Total 0 3800 0 Balance 118 -3440 220 Weight 112 lb 3.445 oz 102 lb 1.184 oz General appearance: PRESENT: no acute distress Respiratory exam: PRESENT: clear to auscultation jamil Cardiovascular exam: ABSENT: diastolic murmur, irregular rhythm, systolic murmur GI/Abdominal exam: ABSENT: mass, organolmegaly, tenderness Extremities exam: ABSENT: pedal edema Neurological exam: PRESENT: oriented to situation Psychiatric exam: PRESENT: appropriate affect Results Laboratory Results: Abnormal - 24 hr 12/29/18 12/29/18 06:15 06:15 RBC 3.44 L Hgb 10.9 L Hct 32.6 L RDW 19.6 H Carbon Dioxide 32 H Anion Gap 1 L Creatinine 4.18 H Est GFR ( Amer) 13 L Est GFR (Non-Af Amer) 11 L Impressions: Chest X-Ray 12/25/18 23:29 IMPRESSION: 1. Increasing volume loss in the right lung base when compared to the prior study. There is grossly stable persistent volume loss in the left lung base. Findings may be due to a combination of pleural fluid, edema, atelectasis and/or pneumonia. 2. Stable right IJ dialysis catheter. Assessment & Plan - Diagnosis (1) Acute respiratory failure with hypoxia Is this a current diagnosis for this admission?: Yes (2) Pulmonary edema with congestive heart failure Is this a current diagnosis for this admission?: Yes (3) ESRD (end stage renal disease) on dialysis Is this a current diagnosis for this admission?: Yes Plan: resumed doxazosin. Dialysis today (4) Membranous glomerulonephritis with nephrosis Is this a current diagnosis for this admission?: Yes (5) Chronic lupus nephritis Is this a current diagnosis for this admission?: Yes (6) Asthma, mild intermittent Qualifiers: Asthma complication type: uncomplicated Qualified Code(s): J45.20 - Mild intermittent asthma, uncomplicated Is this a current diagnosis for this admission?: Yes (7) Sciatica of left side Is this a current diagnosis for this admission?: Yes Plan: resumed oxycodone & amitiza (8) Herpes stomatitis Is this a current diagnosis for this admission?: Yes - Inpatient Certification Medical Necessity: Failure to Improve With Outpatient Therapy, Significant Comorbidiites Make Outpatient Treatment Too Risky, Need Close Monitoring Due to Risk of Patient Decompensation, Need For Continuous Telemetry Monitoring, Need for Pain Control, Risk of Complication if Not Cared For in Hospital, Risk of Diagnosis Which Will Require Inpatient Eval/Care/Monitoring
[2018-12-29] MEDS: FUROSEMIDE 40 MG TABLET PO SCH ×2 (09:56→17:13)
[2018-12-29] MEDS: CARVEDILOL 12.5 MG TABLET PO SCH ×2 (09:56→21:10)
[2018-12-29] MEDS ORDERED: DOXAZOSIN MESYLATE 4 MG TABLET PO SCH (10:00)
[2018-12-29] MEDS ORDERED: HYDRALAZINE HCL 25 MG TABLET PO SCH (10:00)
[2018-12-29] MEDS: ACETAMINOPHEN 325 MG TABLET PO PRN ×2 (11:44→17:15)
[2018-12-29] MEDS: DULOXETINE HCL 30 MG CAPSULE.DR PO SCH (11:45)
[2018-12-29] MEDS: FOLIC ACID/VITAMIN B COMP W-C CAPSULE PO SCH ×3 (11:45→17:13)
[2018-12-29] MEDS: CALCITRIOL 0.25 MCG CAPSULE PO SCH (11:45)
[2018-12-29] MEDS: LUBIPROSTONE 24 MCG CAPSULE PO SCH ×2 (11:46→17:16)
[2018-12-29] MEDS: SEVELAMER HCL 800 MG TABLET PO SCH ×3 (11:46→17:16)
[2018-12-29] MEDS: ONDANSETRON HCL INJ/PF 4 MG/2 ML SDV IV PRN ×2 (17:15→21:10)
--- NOTE | 2018-12-29 17:52 | PDOC PROGRESS REPORT ---
Subjective Progress Note for:: 12/29/18 Reason For Visit: ACUTE PULMONARY EDEMA WITH CONGESTIVE HEART FAILUR Physical Exam Vital Signs: Temp Pulse Resp BP Pulse Ox 98.3 F 73 14 156/88 H 97 12/29/18 15:31 12/29/18 15:31 12/29/18 15:31 12/29/18 15:31 12/29/18 15:31 Intake & Output 12/28/18 12/29/18 12/30/18 06:59 06:59 06:59 Intake Total 360 220 100 Output Total 3800 0 2700 Balance -3440 220 -2600 Weight 46.3 kg 48.1 kg General appearance: PRESENT: no acute distress Respiratory exam: PRESENT: clear to auscultation jamil. ABSENT: crackles, decreased breath sounds Cardiovascular exam: PRESENT: +S1, +S2 GI/Abdominal exam: PRESENT: normal bowel sounds, soft. ABSENT: organomegaly, tenderness Extremities exam: ABSENT: pedal edema Neurological exam: PRESENT: alert, awake, oriented to person, oriented to place Psychiatric exam: PRESENT: anxious Skin exam: ABSENT: erythema, mottled, rash Results Laboratory Results: 12/29/18 06:15 12/29/18 06:15 12/29/18 12/29/18 06:15 06:15 WBC 4.2 RBC 3.44 L Hgb 10.9 L Hct 32.6 L MCV 95 MCH 31.7 MCHC 33.5 RDW 19.6 H Plt Count 297 Sodium 137.4 Potassium 4.2 Chloride 104 Carbon Dioxide 32 H Anion Gap 1 L BUN 18 Creatinine 4.18 H Est GFR ( Amer) 13 L Est GFR (Non-Af Amer) 11 L Glucose 86 Calcium 8.7 Magnesium 1.9 12/25/18 12/25/18 12/26/18 23:31 23:31 00:31 Creatine Kinase CK-MB (CK-2) Troponin I Cancelled 0.024 NT-Pro-B Natriuret Pep Cancelled 28158 H 12/26/18 12/26/18 12/26/18 07:25 07:25 13:08 Creatine Kinase 44 43 CK-MB (CK-2) 0.99 Troponin I 0.049 NT-Pro-B Natriuret Pep 12/26/18 12/26/18 12/26/18 13:08 20:28 20:28 Creatine Kinase 40 CK-MB (CK-2) 1.10 0.75 Troponin I 0.050 0.036 NT-Pro-B Natriuret Pep Impressions: Chest X-Ray 12/25/18 23:29 IMPRESSION: 1. Increasing volume loss in the right lung base when compared to the prior study. There is grossly stable persistent volume loss in the left lung base. Findings may be due to a combination of pleural fluid, edema, atelectasis and/or pneumonia. 2. Stable right IJ dialysis catheter. Assessment & Plan - Diagnosis (1) Acute exacerbation of CHF (congestive heart failure) Qualifiers: Heart failure type: unspecified Qualified Code(s): I50.9 - Heart failure, unspecified Plan: Much improved . (2) Acute respiratory failure with hypoxia Is this a current diagnosis for this admission?: Yes Plan: much improved. (3) ESRD (end stage renal disease) on dialysis Is this a current diagnosis for this admission?: Yes Plan: Currently undergoing HD. VS are stable. Dialysis is being supervised to ensure a safe and smooth procedure.Plan to remove 1-2 l as tolerated. Dialysis orders were reviewed with treating agriculture specialist. (4) Hypertensive emergency Is this a current diagnosis for this admission?: Yes Plan: Labile.She can range from low to high and has been difficult to stabilize. Been worked up earlier. Will do another renal renal doppler.
[2018-12-29] MEDS: NIFEDIPINE 30 MG TAB.ER.24 PO SCH (21:09)
[2018-12-29] MEDS ORDERED: HYDRALAZINE HCL INJ/PF 20 MG/1 ML SDV IV PRN (23:48)
[2018-12-30] MEDS: OXYCODONE HCL IR 5 MG TABLET PO PRN ×2 (06:42→22:58)
[2018-12-30] MEDS: PANTOPRAZOLE SODIUM 40 MG TABLET.DR PO SCH ×2 (06:43→17:14)
[2018-12-30] MEDS: HEPARIN SOD (PORCINE) 5,000 UNIT/ML 1 ML SYRINGE SUBCUT SCH ×3 (06:43→22:00)
[2018-12-30] MEDS: CLONIDINE HCL 0.2 MG TABLET PO SCH ×3 (06:43→21:58)
--- NOTE | 2018-12-30 07:45 | PDOC PROGRESS REPORT ---
Subjective Progress Note for:: 12/30/18 Subjective:: eating more than recorded Reason For Visit: ACUTE PULMONARY EDEMA WITH CONGESTIVE HEART FAILUR Physical Exam Vital Signs: Temp Pulse Resp BP Pulse Ox 98.1 F 79 14 126/72 H 94 12/30/18 03:57 12/30/18 03:57 12/30/18 03:57 12/30/18 03:57 12/30/18 03:57 Intake & Output 12/28/18 12/29/18 12/30/18 07:59 07:59 07:59 Intake Total 360 220 150 Output Total 3800 0 2700 Balance -3440 220 -2550 Weight 102 lb 1.184 oz 106 lb 0.677 oz 93 lb 11.143 oz General appearance: PRESENT: no acute distress Respiratory exam: PRESENT: clear to auscultation jamil Cardiovascular exam: ABSENT: diastolic murmur, irregular rhythm, systolic murmur GI/Abdominal exam: ABSENT: mass, organolmegaly, tenderness Extremities exam: ABSENT: pedal edema Neurological exam: PRESENT: oriented to situation Psychiatric exam: PRESENT: appropriate affect Results Laboratory Results: 12/29/18 06:15 12/29/18 06:15 Impressions: Chest X-Ray 12/25/18 23:29 IMPRESSION: 1. Increasing volume loss in the right lung base when compared to the prior study. There is grossly stable persistent volume loss in the left lung base. Findings may be due to a combination of pleural fluid, edema, atelectasis and/or pneumonia. 2. Stable right IJ dialysis catheter. Assessment & Plan - Diagnosis (1) Acute respiratory failure with hypoxia Is this a current diagnosis for this admission?: Yes (2) Pulmonary edema with congestive heart failure Is this a current diagnosis for this admission?: Yes (3) ESRD (end stage renal disease) on dialysis Is this a current diagnosis for this admission?: Yes Plan: although dialyzed 2700ml, bp 200 last night. Increase doxazosin to 4mg q12h (4) Membranous glomerulonephritis with nephrosis Is this a current diagnosis for this admission?: Yes (5) Chronic lupus nephritis Is this a current diagnosis for this admission?: Yes (6) Asthma, mild intermittent Qualifiers: Asthma complication type: uncomplicated Qualified Code(s): J45.20 - Mild intermittent asthma, uncomplicated Is this a current diagnosis for this admission?: Yes (7) Sciatica of left side Is this a current diagnosis for this admission?: Yes (8) Herpes stomatitis Is this a current diagnosis for this admission?: Yes - Inpatient Certification Medical Necessity: Failure to Improve With Outpatient Therapy, Significant Comorbidiites Make Outpatient Treatment Too Risky, Need Close Monitoring Due to Risk of Patient Decompensation, Need For Continuous Telemetry Monitoring, Risk of Complication if Not Cared For in Hospital, Risk of Diagnosis Which Will Require Inpatient Eval/Care/Monitoring
[2018-12-30] MEDS: FOLIC ACID/VITAMIN B COMP W-C CAPSULE PO SCH ×3 (08:31→17:14)
[2018-12-30] MEDS: SEVELAMER HCL 800 MG TABLET PO SCH ×3 (08:31→17:15)
[2018-12-30] MEDS: DOXAZOSIN MESYLATE 4 MG TABLET PO SCH ×2 (09:28→21:59)
[2018-12-30] MEDS: CARVEDILOL 12.5 MG TABLET PO SCH ×2 (09:28→21:58)
[2018-12-30] MEDS: CALCITRIOL 0.25 MCG CAPSULE PO SCH (09:29)
[2018-12-30] MEDS: FUROSEMIDE 40 MG TABLET PO SCH ×2 (09:29→17:14)
[2018-12-30] MEDS: LUBIPROSTONE 24 MCG CAPSULE PO SCH ×2 (09:29→17:15)
[2018-12-30] MEDS: DULOXETINE HCL 30 MG CAPSULE.DR PO SCH (09:29)
--- NOTE | 2018-12-30 11:17 | PDOC PROGRESS REPORT ---
Subjective Progress Note for:: 12/30/18 Subjective:: Patient is breathing much better today. Her blood pressure seems to be steady. Renal artery Doppler will be done tomorrow. No other new complaints. Reason For Visit: ACUTE PULMONARY EDEMA WITH CONGESTIVE HEART FAILUR Physical Exam Vital Signs: Temp Pulse Resp BP Pulse Ox 98.2 F 79 16 146/77 H 99 12/30/18 07:37 12/30/18 07:37 12/30/18 07:37 12/30/18 07:37 12/30/18 07:37 Intake & Output 12/29/18 12/30/18 12/31/18 06:59 06:59 06:59 Intake Total 220 150 Output Total 0 2700 Balance 220 -2550 Weight 48.1 kg 42.5 kg Exam: General appearance: PRESENT: no acute distress, cooperative, patient is a small framed and thin Head exam: PRESENT: atraumatic, normocephalic Eye exam: PRESENT: conjunctiva slightly pale, PERRLA. ABSENT: scleral icterus Neck exam: ABSENT: JVD Respiratory exam: PRESENT: Normal breath sounds. ABSENT: crackles, rales, rhonchi, unlabored, wheezes Cardiovascular exam: PRESENT: Regular rate rhythm -+S1, +S2. ABSENT: diastolic murmur, systolic murmur GI/Abdominal exam: PRESENT: normal bowel sounds, soft. ABSENT: guarding, mass, tenderness Extremities exam: Bilateral mild ankle edema Neurological exam: PRESENT: alert, awake, oriented to person, place and time. Skin exam: PRESENT: dry, warm, Cardiovascular exam: PRESENT: +S1, +S2 GI/Abdominal exam: PRESENT: normal bowel sounds, soft. ABSENT: organomegaly, tenderness Results Laboratory Results: 12/29/18 06:15 12/29/18 06:15 12/25/18 12/25/18 12/26/18 23:31 23:31 00:31 Creatine Kinase CK-MB (CK-2) Troponin I Cancelled 0.024 NT-Pro-B Natriuret Pep Cancelled 16158 H 12/26/18 12/26/18 12/26/18 07:25 07:25 13:08 Creatine Kinase 44 43 CK-MB (CK-2) 0.99 Troponin I 0.049 NT-Pro-B Natriuret Pep 12/26/18 12/26/18 12/26/18 13:08 20:28 20:28 Creatine Kinase 40 CK-MB (CK-2) 1.10 0.75 Troponin I 0.050 0.036 NT-Pro-B Natriuret Pep Impressions: Chest X-Ray 12/25/18 23:29 IMPRESSION: 1. Increasing volume loss in the right lung base when compared to the prior study. There is grossly stable persistent volume loss in the left lung base. Findings may be due to a combination of pleural fluid, edema, atelectasis and/or pneumonia. 2. Stable right IJ dialysis catheter. Assessment & Plan - Diagnosis (1) Labile hypertension Is this a current diagnosis for this admission?: Yes Plan: Blood pressures been steady so far. Renal artery Doppler scheduled for tomorrow. (2) ESRD (end stage renal disease) on dialysis Is this a current diagnosis for this admission?: Yes Plan: Plan to do dialysis tomorrow. (3) Anemia in chronic kidney disease (CKD) Is this a current diagnosis for this admission?: Yes Plan: We will give Procrit/Retacrit with dialysis as needed. (4) Acute exacerbation of CHF (congestive heart failure) Qualifiers: Heart failure type: unspecified Qualified Code(s): I50.9 - Heart failure, unspecified Is this a current diagnosis for this admission?: Yes Plan: Currently compensated. - Time Time with patient: 15-25 minutes
[2018-12-30] MEDS: NIFEDIPINE 30 MG TAB.ER.24 PO SCH (21:59)
[2018-12-31] MEDS ORDERED: NORMAL SALINE 1000 ML 1,000 ML IV PRN (05:00)
[2018-12-31] MEDS: HEPARIN SOD (PORCINE) 5,000 UNIT/ML 1 ML SYRINGE SUBCUT SCH ×3 (05:32→22:55)
[2018-12-31] MEDS: CLONIDINE HCL 0.2 MG TABLET PO SCH ×3 (05:34→22:54)
[2018-12-31] MEDS: PANTOPRAZOLE SODIUM 40 MG TABLET.DR PO SCH ×2 (05:34→17:08)
[2018-12-31 06:23] LABS: HEMATOCRIT 33.9 % (36.0-47.0); HEMOGLOBIN 11.3 g/dL (12.0-15.5); MEAN CORPUSCULAR HEMOGLOBIN 31.9 pg (27.0-33.4); MEAN CORPUSCULAR HGB CONC 33.4 g/dL (32.0-36.0); MEAN CORPUSCULAR VOLUME 96 fl (80-97); PLATELET COUNT 295 10^3/uL (150-450); RED BLOOD COUNT 3.55 10^6/uL (3.72-5.28); RED CELL DISTRIBUTION WIDTH 19.2 % (11.5-14.0); WHITE BLOOD COUNT 3.3 10^3/uL (4.0-10.5)
[2018-12-31 06:44] LABS: BLOOD UREA NITROGEN 20 mg/dL (7-20); CALCIUM 9.8 mg/dL (8.4-10.2); CARBON DIOXIDE 29 mmol/L (22-30); GLUCOSE 85 mg/dL (75-110); POTASSIUM 4.4 mmol/L (3.6-5.0); SODIUM 136.2 mmol/L (137-145)
[2018-12-31 06:49] LABS: CHLORIDE 104 mmol/L (98-107)
[2018-12-31 06:53] LABS: ANION GAP 3 (5-19)
[2018-12-31] MEDS: FOLIC ACID/VITAMIN B COMP W-C CAPSULE PO SCH ×3 (08:27→17:08)
[2018-12-31] MEDS: SEVELAMER HCL 800 MG TABLET PO SCH ×3 (08:27→17:08)
--- NOTE | 2018-12-31 09:41 | PDOC PROGRESS REPORT ---
Subjective Progress Note for:: 12/31/18 Subjective:: I am seeing the patient during dialysis this morning. Her blood pressure is much better today. She is a scheduled to have duplex of renal arteries after dialysis today. She is tolerating dialysis without any problem this morning. Reason For Visit: ACUTE PULMONARY EDEMA WITH CONGESTIVE HEART FAILUR Physical Exam Vital Signs: Temp Pulse Resp BP Pulse Ox 97.9 F 76 14 131/71 H 98 12/31/18 07:51 12/31/18 07:51 12/31/18 07:51 12/31/18 07:51 12/31/18 07:51 Intake & Output 12/30/18 12/31/18 01/01/19 06:59 06:59 06:59 Intake Total 150 630 Output Total 2700 0 Balance -2550 630 Weight 42.5 kg 45.9 kg Vitals during dialysis: Blood pressure 120/95, heart rate of 94, blood flow rate of 400 mL/min, dialysate flow rate of 800 mL/min. Exam: General appearance: PRESENT: no acute distress, cooperative, well-developed, well-nourished Head exam: PRESENT: atraumatic, normocephalic Eye exam: PRESENT: conjunctiva pink, PERRLA. ABSENT: scleral icterus Neck exam: ABSENT: JVD Respiratory exam: PRESENT: Normal breath sounds. ABSENT: crackles, rales, rhonchi, unlabored, wheezes Cardiovascular exam: PRESENT: Regular rate rhythm -+S1, +S2. ABSENT: diastolic murmur, systolic murmur GI/Abdominal exam: PRESENT: normal bowel sounds, soft. ABSENT: guarding, mass, tenderness Extremities exam: ABSENT: No edema Neurological exam: PRESENT: alert, awake, oriented to person, place and time. Skin exam: PRESENT: dry, warm, Cardiovascular exam: PRESENT: +S1, +S2 GI/Abdominal exam: PRESENT: normal bowel sounds, soft. ABSENT: organomegaly, tenderness Results Laboratory Results: 12/31/18 06:05 12/31/18 06:05 12/31/18 12/31/18 06:05 06:05 WBC 3.3 L RBC 3.55 L Hgb 11.3 L Hct 33.9 L MCV 96 MCH 31.9 MCHC 33.4 RDW 19.2 H Plt Count 295 Sodium 136.2 L Potassium 4.4 Chloride 104 Carbon Dioxide 29 Anion Gap 3 L BUN 20 Creatinine 4.07 H Est GFR ( Amer) 13 L Est GFR (Non-Af Amer) 11 L Glucose 85 Calcium 9.8 12/26/18 00:31 Blood Blood Culture - Final NO GROWTH IN 5 DAYS 12/25/18 23:31 Blood Blood Culture - Final NO GROWTH IN 5 DAYS 12/25/18 12/25/18 12/26/18 23:31 23:31 00:31 Creatine Kinase CK-MB (CK-2) Troponin I Cancelled 0.024 NT-Pro-B Natriuret Pep Cancelled 31975 H 12/26/18 12/26/18 12/26/18 07:25 07:25 13:08 Creatine Kinase 44 43 CK-MB (CK-2) 0.99 Troponin I 0.049 NT-Pro-B Natriuret Pep 12/26/18 12/26/18 12/26/18 13:08 20:28 20:28 Creatine Kinase 40 CK-MB (CK-2) 1.10 0.75 Troponin I 0.050 0.036 NT-Pro-B Natriuret Pep Impressions: Chest X-Ray 12/25/18 23:29 IMPRESSION: 1. Increasing volume loss in the right lung base when compared to the prior study. There is grossly stable persistent volume loss in the left lung base. Findings may be due to a combination of pleural fluid, edema, atelectasis and/or pneumonia. 2. Stable right IJ dialysis catheter. Assessment & Plan - Diagnosis (1) ESRD (end stage renal disease) on dialysis Is this a current diagnosis for this admission?: Yes Plan: We will do dialysis today for 3 hours, using the patient's PermCath, with 2 potassium bath, blood flow rate of 400 mL per minute, dialysate flow rate of 800 mL per minute, ultrafiltration 0.5 to 1 L as tolerated, no heparin and no Procrit. Patient will be monitored throughout dialysis treatment. (2) Labile hypertension Is this a current diagnosis for this admission?: Yes Plan: Blood pressures been steady so far. Renal artery Doppler scheduled for today. If positive patient will need to be arranged for renal arteriogram with an gioplasty if needed which we do not do here so patient can be scheduled in [place] as an outpatient. Continue all current medications. (3) Anemia in chronic kidney disease (CKD) Is this a current diagnosis for this admission?: Yes Plan: We will give Procrit/Retacrit with dialysis as needed. No need for Procrit today. (4) Acute exacerbation of CHF (congestive heart failure) Qualifiers: Heart failure type: unspecified Qualified Code(s): I50.9 - Heart failure, unspecified Is this a current diagnosis for this admission?: Yes Plan: Currently compensated. - Notes Notes: From nephrology standpoint I think she can be safely discharged home after the renal artery duplex ultrasound today. - Time Time with patient: 15-25 minutes
--- NOTE | 2018-12-31 10:06 | PDOC PROGRESS REPORT ---
Subjective Progress Note for:: 12/31/18 Subjective:: no stool this admission in spite of amitiza Reason For Visit: ACUTE PULMONARY EDEMA WITH CONGESTIVE HEART FAILUR Physical Exam Vital Signs: Temp Pulse Resp BP Pulse Ox 97.9 F 76 14 131/71 H 98 12/31/18 07:51 12/31/18 07:51 12/31/18 07:51 12/31/18 07:51 12/31/18 07:51 Intake & Output 12/30/18 12/31/18 01/01/19 07:59 07:59 07:59 Intake Total 150 630 Output Total 2700 0 Balance -2550 630 Weight 93 lb 11.143 oz 101 lb 3.075 oz General appearance: PRESENT: no acute distress Respiratory exam: PRESENT: clear to auscultation jamil Cardiovascular exam: ABSENT: diastolic murmur, irregular rhythm, systolic murmur GI/Abdominal exam: ABSENT: mass, organolmegaly, tenderness Extremities exam: ABSENT: pedal edema Neurological exam: PRESENT: oriented to situation Psychiatric exam: PRESENT: appropriate affect Results Laboratory Results: 12/31/18 12/31/18 06:05 06:05 WBC 3.3 L RBC 3.55 L Hgb 11.3 L Hct 33.9 L MCV 96 MCH 31.9 MCHC 33.4 RDW 19.2 H Plt Count 295 Sodium 136.2 L Potassium 4.4 Chloride 104 Carbon Dioxide 29 Anion Gap 3 L BUN 20 Creatinine 4.07 H Est GFR ( Amer) 13 L Est GFR (Non-Af Amer) 11 L Glucose 85 Calcium 9.8 12/26/18 00:31 Blood Blood Culture - Final NO GROWTH IN 5 DAYS 12/25/18 23:31 Blood Blood Culture - Final NO GROWTH IN 5 DAYS Impressions: Chest X-Ray 12/25/18 23:29 IMPRESSION: 1. Increasing volume loss in the right lung base when compared to the prior study. There is grossly stable persistent volume loss in the left lung base. Findings may be due to a combination of pleural fluid, edema, atelectasis and/or pneumonia. 2. Stable right IJ dialysis catheter. Assessment & Plan - Diagnosis (1) Acute respiratory failure with hypoxia Is this a current diagnosis for this admission?: Yes (2) Pulmonary edema with congestive heart failure Is this a current diagnosis for this admission?: Yes (3) ESRD (end stage renal disease) on dialysis Is this a current diagnosis for this admission?: Yes Plan: consider home tomorrow (4) Membranous glomerulonephritis with nephrosis Is this a current diagnosis for this admission?: Yes (5) Chronic lupus nephritis Is this a current diagnosis for this admission?: Yes (6) Asthma, mild intermittent Qualifiers: Asthma complication type: uncomplicated Qualified Code(s): J45.20 - Mild intermittent asthma, uncomplicated Is this a current diagnosis for this admission?: Yes (7) Sciatica of left side Is this a current diagnosis for this admission?: Yes (8) Herpes stomatitis Is this a current diagnosis for this admission?: Yes (9) Slow transit constipation Is this a current diagnosis for this admission?: Yes Plan: enema - Inpatient Certification Medical Necessity: Failure to Improve With Outpatient Therapy, Significant Comorbidiites Make Outpatient Treatment Too Risky, Need Close Monitoring Due to Risk of Patient Decompensation, Need For Continuous Telemetry Monitoring, Need for Pain Control, Risk of Complication if Not Cared For in Hospital, Risk of Diagnosis Which Will Require Inpatient Eval/Care/Monitoring
[2018-12-31] MEDS ORDERED: HEPARIN SOD (PORCINE) 1,000 UNIT/ML 10 ML VIAL IV PRN (10:07)
[2018-12-31] MEDS: DOXAZOSIN MESYLATE 4 MG TABLET PO SCH ×2 (13:15→22:53)
[2018-12-31] MEDS: LUBIPROSTONE 24 MCG CAPSULE PO SCH ×2 (13:16→17:08)
[2018-12-31] MEDS: CALCITRIOL 0.25 MCG CAPSULE PO SCH (13:16)
[2018-12-31] MEDS: CARVEDILOL 12.5 MG TABLET PO SCH ×2 (13:16→22:54)
[2018-12-31] MEDS: FUROSEMIDE 40 MG TABLET PO SCH ×2 (13:16→17:08)
[2018-12-31] MEDS: DULOXETINE HCL 30 MG CAPSULE.DR PO SCH (13:16)
--- NOTE | 2018-12-31 13:50 | RADIOLOGY REPORT (SQ) ---
EXAM DESCRIPTION: U/S LTD DUPLEX ART/DANILO FLOW COMPLETED DATE/TIME: 12/31/2018 1:11 pm REASON FOR STUDY: labile hypertension for renal artery doppler COMPARISON: 07/01/2018 TECHNIQUE: Realtime and static grayscale images acquired. Selected color Doppler, velocities and spe ctral images recorded. LIMITATIONS: Body habitus FINDINGS: RIGHT KIDNEY: RENAL ARTERY VELOCITIES: 54 cm/sec. Segmental artery velocity 24 cm/sec. RENAL VEIN: Color doppler flow present, patent. VELOCITY RATIO: 0.64. Normal waveforms. KIDNEY: Atrophic, 6 cm length with echogenic parenchyma. 1 cm cyst. No significant pathology. LEFT KIDNEY: RENAL ARTERY VELOCITIES: 86 cm/sec. Segmental artery velocity 45 cm/sec. RENAL VEIN: Color doppler flow present, patent. VELOCITY RATIO: 1.19. Normal waveforms. KIDNEY: Atrophic, 6.8 cm length. Echogenic parenchyma. No significant pathology. BLADDER: Normal. OTHER: No other significant finding. IMPRESSION: NO DOPPLER EVIDENCE OF HEMODYNAMICALLY SIGNIFICANT RENAL ARTERY STENOSIS. COMMENT: NORMAL RENAL ARTERY/AORTA VELOCITY RATIO IS LESS THAN OR EQUAL TO 3.5. TECHNICAL DOCUMENTATION: JOB ID: [id number] 2010 Close- All Rights Reserved Reading location - IP/workstation name: [email or web address]
[2018-12-31] MEDS: ONDANSETRON HCL INJ/PF 4 MG/2 ML SDV IV PRN (17:08)
[2018-12-31] MEDS: ACETAMINOPHEN 325 MG TABLET PO PRN (20:23)
[2018-12-31] MEDS: NIFEDIPINE 30 MG TAB.ER.24 PO SCH (22:53)
[2019-01-01] MEDS: OXYCODONE HCL IR 5 MG TABLET PO PRN ×2 (02:10→21:32)
[2019-01-01] MEDS: CLONIDINE HCL 0.2 MG TABLET PO SCH ×3 (05:44→21:32)
[2019-01-01] MEDS: PANTOPRAZOLE SODIUM 40 MG TABLET.DR PO SCH ×2 (05:44→17:20)
[2019-01-01] MEDS: HEPARIN SOD (PORCINE) 5,000 UNIT/ML 1 ML SYRINGE SUBCUT SCH ×3 (05:45→21:31)
--- NOTE | 2019-01-01 07:43 | PDOC PROGRESS REPORT ---
Subjective Progress Note for:: 01/01/19 Subjective:: still no stool after a week. Refused enema yesterday. Does not feel well enough to go home. Wants to go home after thursday dialysis in 2d Reason For Visit: ACUTE PULMONARY EDEMA WITH CONGESTIVE HEART FAILUR Physical Exam Vital Signs: Temp Pulse Resp BP Pulse Ox 97.8 F 74 10 L 159/85 H 97 01/01/19 04:00 01/01/19 04:00 01/01/19 04:00 01/01/19 04:00 01/01/19 04:00 Intake & Output 12/30/18 12/31/18 01/01/19 07:59 07:59 07:59 Intake Total 150 630 480 Output Total 2700 0 2200 Balance -2550 630 -1720 Weight 93 lb 11.143 oz 101 lb 3.075 oz 97 lb 7.109 oz General appearance: PRESENT: no acute distress Respiratory exam: PRESENT: clear to auscultation jamil Cardiovascular exam: ABSENT: diastolic murmur, irregular rhythm, systolic murmur GI/Abdominal exam: ABSENT: mass, organolmegaly, tenderness Extremities exam: ABSENT: pedal edema Neurological exam: PRESENT: oriented to situation Psychiatric exam: PRESENT: anxious Results Laboratory Results: 12/31/18 06:05 12/31/18 06:05 Impressions: Chest X-Ray 12/25/18 23:29 IMPRESSION: 1. Increasing volume loss in the right lung base when compared to the prior study. There is grossly stable persistent volume loss in the left lung base. Findings may be due to a combination of pleural fluid, edema, atelectasis and/or pneumonia. 2. Stable right IJ dialysis catheter. Vascular Ultrasound 12/31/18 00:00 IMPRESSION: NO DOPPLER EVIDENCE OF HEMODYNAMICALLY SIGNIFICANT RENAL ARTERY STENOSIS. Assessment & Plan - Diagnosis (1) Acute respiratory failure with hypoxia Is this a current diagnosis for this admission?: Yes (2) ESRD (end stage renal disease) on dialysis Is this a current diagnosis for this admission?: Yes Plan: took 2.2L off (3) Membranous glomerulonephritis with nephrosis Is this a current diagnosis for this admission?: Yes (4) Chronic lupus nephritis Is this a current diagnosis for this admission?: Yes (5) Asthma, mild intermittent Qualifiers: Asthma complication type: uncomplicated Qualified Code(s): J45.20 - Mild intermittent asthma, uncomplicated Is this a current diagnosis for this admission?: Yes (6) Sciatica of left side Is this a current diagnosis for this admission?: Yes (7) Herpes stomatitis Is this a current diagnosis for this admission?: Yes (8) Slow transit constipation Is this a current diagnosis for this admission?: Yes Plan: will take enema today (9) Pulmonary edema Qualifiers: Chronicity: acute Qualified Code(s): J81.0 - Acute pulmonary edema Is this a current diagnosis for this admission?: Yes Plan: was renal not cardiac - Inpatient Certification Medical Necessity: Failure to Improve With Outpatient Therapy, Significant Comorbidiites Make Outpatient Treatment Too Risky, Need Close Monitoring Due to Risk of Patient Decompensation, Need for Pain Control, Risk of Complication if Not Cared For in Hospital, Risk of Diagnosis Which Will Require Inpatient Eval/Care/Monitoring
[2019-01-01] MEDS: FOLIC ACID/VITAMIN B COMP W-C CAPSULE PO SCH ×3 (07:57→17:20)
[2019-01-01] MEDS: SEVELAMER HCL 800 MG TABLET PO SCH ×3 (07:57→17:20)
[2019-01-01] MEDS: CARVEDILOL 12.5 MG TABLET PO SCH ×2 (09:40→21:31)
[2019-01-01] MEDS: DOXAZOSIN MESYLATE 4 MG TABLET PO SCH ×2 (09:40→21:33)
[2019-01-01] MEDS: LUBIPROSTONE 24 MCG CAPSULE PO SCH ×2 (09:41→17:20)
[2019-01-01] MEDS: FUROSEMIDE 40 MG TABLET PO SCH ×2 (09:41→17:20)
[2019-01-01] MEDS: DULOXETINE HCL 30 MG CAPSULE.DR PO SCH (09:41)
[2019-01-01] MEDS: CALCITRIOL 0.25 MCG CAPSULE PO SCH (09:41)
[2019-01-01] MEDS: NIFEDIPINE 30 MG TAB.ER.24 PO SCH (21:32)
[2019-01-02] MEDS: HEPARIN SOD (PORCINE) 5,000 UNIT/ML 1 ML SYRINGE SUBCUT SCH ×3 (05:26→21:30)
[2019-01-02] MEDS: PANTOPRAZOLE SODIUM 40 MG TABLET.DR PO SCH ×2 (05:26→17:18)
[2019-01-02] MEDS: CLONIDINE HCL 0.2 MG TABLET PO SCH ×3 (05:26→21:28)
[2019-01-02] MEDS: SEVELAMER HCL 800 MG TABLET PO SCH ×3 (07:48→17:18)
[2019-01-02] MEDS: FOLIC ACID/VITAMIN B COMP W-C CAPSULE PO SCH ×3 (07:48→17:18)
--- NOTE | 2019-01-02 07:48 | PDOC PROGRESS REPORT ---
Subjective Progress Note for:: 01/02/19 Subjective:: enema failed Reason For Visit: ACUTE PULMONARY EDEMA WITH CONGESTIVE HEART FAILUR Physical Exam Vital Signs: Temp Pulse Resp BP Pulse Ox 98.0 F 71 11 L 139/75 H 98 01/02/19 03:53 01/02/19 07:00 01/02/19 03:53 01/02/19 03:53 01/02/19 03:53 Intake & Output 12/31/18 01/01/19 01/02/19 07:59 07:59 07:59 Intake Total 499 259 7019 Output Total 0 2200 0 Balance 630 -1720 1284 Weight 101 lb 3.075 oz 97 lb 7.109 oz 95 lb 3.835 oz General appearance: PRESENT: no acute distress Respiratory exam: PRESENT: clear to auscultation jamil Cardiovascular exam: ABSENT: diastolic murmur, irregular rhythm, systolic murmur GI/Abdominal exam: ABSENT: mass, organolmegaly, tenderness Extremities exam: ABSENT: pedal edema Neurological exam: PRESENT: oriented to situation Psychiatric exam: PRESENT: appropriate affect Results Laboratory Results: 12/31/18 06:05 12/31/18 06:05 Impressions: Chest X-Ray 12/25/18 23:29 IMPRESSION: 1. Increasing volume loss in the right lung base when compared to the prior study. There is grossly stable persistent volume loss in the left lung base. Findings may be due to a combination of pleural fluid, edema, atelectasis and/or pneumonia. 2. Stable right IJ dialysis catheter. Vascular Ultrasound 12/31/18 00:00 IMPRESSION: NO DOPPLER EVIDENCE OF HEMODYNAMICALLY SIGNIFICANT RENAL ARTERY STENOSIS. Assessment & Plan - Diagnosis (1) Acute respiratory failure with hypoxia Is this a current diagnosis for this admission?: Yes (2) ESRD (end stage renal disease) on dialysis Is this a current diagnosis for this admission?: Yes Plan: ? home after dialysis tomorrow (3) Membranous glomerulonephritis with nephrosis Is this a current diagnosis for this admission?: Yes (4) Chronic lupus nephritis Is this a current diagnosis for this admission?: Yes (5) Asthma, mild intermittent Qualifiers: Asthma complication type: uncomplicated Qualified Code(s): J45.20 - Mild intermittent asthma, uncomplicated Is this a current diagnosis for this admission?: Yes (6) Sciatica of left side Is this a current diagnosis for this admission?: Yes (7) Herpes stomatitis Is this a current diagnosis for this admission?: Yes (8) Slow transit constipation Is this a current diagnosis for this admission?: Yes Plan: repeat enema (9) Pulmonary edema Qualifiers: Chronicity: acute Qualified Code(s): J81.0 - Acute pulmonary edema Is this a current diagnosis for this admission?: Yes - Inpatient Certification Medical Necessity: Failure to Improve With Outpatient Therapy, Significant Comorbidiites Make Outpatient Treatment Too Risky, Need Close Monitoring Due to Risk of Patient Decompensation, Need For Continuous Telemetry Monitoring, Need for Pain Control, Risk of Complication if Not Cared For in Hospital, Risk of Diagnosis Which Will Require Inpatient Eval/Care/Monitoring
[2019-01-02] MEDS: FUROSEMIDE 40 MG TABLET PO SCH ×2 (10:52→17:18)
[2019-01-02] MEDS: DOXAZOSIN MESYLATE 4 MG TABLET PO SCH ×2 (10:52→21:29)
[2019-01-02] MEDS: CARVEDILOL 12.5 MG TABLET PO SCH ×2 (10:52→21:29)
[2019-01-02] MEDS: LUBIPROSTONE 24 MCG CAPSULE PO SCH ×2 (10:52→17:18)
[2019-01-02] MEDS: CALCITRIOL 0.25 MCG CAPSULE PO SCH (10:53)
[2019-01-02] MEDS: DULOXETINE HCL 30 MG CAPSULE.DR PO SCH (10:53)
[2019-01-02] MEDS: NIFEDIPINE 30 MG TAB.ER.24 PO SCH (21:29)
[2019-01-03] MEDS ORDERED: NORMAL SALINE 1000 ML 1,000 ML IV PRN (05:00)
[2019-01-03 05:07] LABS: HEMATOCRIT 31.7 % (36.0-47.0); HEMOGLOBIN 10.6 g/dL (12.0-15.5); MEAN CORPUSCULAR HEMOGLOBIN 32.1 pg (27.0-33.4); MEAN CORPUSCULAR HGB CONC 33.4 g/dL (32.0-36.0); MEAN CORPUSCULAR VOLUME 96 fl (80-97); PLATELET COUNT 245 10^3/uL (150-450); RED CELL DISTRIBUTION WIDTH 17.9 % (11.5-14.0); WHITE BLOOD COUNT 3.9 10^3/uL (4.0-10.5)
[2019-01-03] MEDS: PANTOPRAZOLE SODIUM 40 MG TABLET.DR PO SCH ×2 (05:25→17:21)
[2019-01-03] MEDS: CLONIDINE HCL 0.2 MG TABLET PO SCH ×3 (05:26→21:50)
[2019-01-03] MEDS: HEPARIN SOD (PORCINE) 5,000 UNIT/ML 1 ML SYRINGE SUBCUT SCH ×3 (05:26→21:50)
[2019-01-03 05:31] LABS: BLOOD UREA NITROGEN 39 mg/dL (7-20); CALCIUM 10.7 mg/dL (8.4-10.2); CARBON DIOXIDE 30 mmol/L (22-30); GLUCOSE 84 mg/dL (75-110); POTASSIUM 4.5 mmol/L (3.6-5.0)
[2019-01-03 05:37] LABS: CHLORIDE 101 mmol/L (98-107); SODIUM 134.6 mmol/L (137-145)
[2019-01-03 05:43] LABS: ANION GAP 4 (5-19)
[2019-01-03] MEDS: SEVELAMER HCL 800 MG TABLET PO SCH ×3 (07:10→17:21)
[2019-01-03] MEDS: OXYCODONE HCL IR 5 MG TABLET PO PRN (07:37)
--- NOTE | 2019-01-03 08:37 | PDOC PROGRESS REPORT ---
Subjective Progress Note for:: 01/03/19 Subjective:: still no stool Reason For Visit: ACUTE PULMONARY EDEMA WITH CONGESTIVE HEART FAILUR Physical Exam Vital Signs: Temp Pulse Resp BP Pulse Ox 97.7 F 71 11 L 154/80 H 96 01/03/19 03:47 01/03/19 03:47 01/03/19 03:47 01/03/19 03:47 01/03/19 03:47 Intake & Output 01/02/19 01/03/19 01/04/19 07:59 07:59 07:59 Intake Total 1284 696 Output Total 0 0 Balance 1284 696 Weight 95 lb 3.835 oz General appearance: PRESENT: no acute distress Respiratory exam: PRESENT: clear to auscultation jamil Cardiovascular exam: ABSENT: diastolic murmur, irregular rhythm, systolic murmur GI/Abdominal exam: PRESENT: tenderness - mild LLQ. ABSENT: mass, organolmegaly Extremities exam: ABSENT: pedal edema Neurological exam: PRESENT: oriented to situation Psychiatric exam: PRESENT: appropriate affect Results Laboratory Results: 01/03/19 04:55 01/03/19 04:55 01/03/19 01/03/19 04:55 04:55 WBC 3.9 L RBC 3.30 L Hgb 10.6 L Hct 31.7 L MCV 96 MCH 32.1 MCHC 33.4 RDW 17.9 H Plt Count 245 Sodium 134.6 L Potassium 4.5 Chloride 101 Carbon Dioxide 30 Anion Gap 4 L BUN 39 H Creatinine 5.44 H Est GFR ( Amer) 9 L Est GFR (Non-Af Amer) 8 L Glucose 84 Calcium 10.7 H Impressions: Chest X-Ray 12/25/18 23:29 IMPRESSION: 1. Increasing volume loss in the right lung base when compared to the prior study. There is grossly stable persistent volume loss in the left lung base. Findings may be due to a combination of pleural fluid, edema, atelectasis and/or pneumonia. 2. Stable right IJ dialysis catheter. Vascular Ultrasound 12/31/18 00:00 IMPRESSION: NO DOPPLER EVIDENCE OF HEMODYNAMICALLY SIGNIFICANT RENAL ARTERY STENOSIS. Assessment & Plan - Diagnosis (1) Acute respiratory failure with hypoxia Is this a current diagnosis for this admission?: Yes (2) ESRD (end stage renal disease) on dialysis Is this a current diagnosis for this admission?: Yes Plan: dialysis today (3) Membranous glomerulonephritis with nephrosis Is this a current diagnosis for this admission?: Yes (4) Chronic lupus nephritis Is this a current diagnosis for this admission?: Yes (5) Asthma, mild intermittent Qualifiers: Asthma complication type: uncomplicated Qualified Code(s): J45.20 - Mild intermittent asthma, uncomplicated Is this a current diagnosis for this admission?: Yes (6) Sciatica of left side Is this a current diagnosis for this admission?: Yes (7) Herpes stomatitis Is this a current diagnosis for this admission?: Yes (8) Slow transit constipation Is this a current diagnosis for this admission?: Yes Plan: stop oxycodone. Try mag citrate qd. (9) Pulmonary edema Qualifiers: Chronicity: acute Qualified Code(s): J81.0 - Acute pulmonary edema Is this a current diagnosis for this admission?: Yes Plan: has never had heart failure just bp - Inpatient Certification Medical Necessity: Failure to Improve With Outpatient Therapy, Significant Comorbidiites Make Outpatient Treatment Too Risky, Need Close Monitoring Due to Risk of Patient Decompensation, Need For IV Fluids, Need For Continuous Telemetry Monitoring, Need for Pain Control, Risk of Complication if Not Cared For in Hospital, Risk of Diagnosis Which Will Require Inpatient Eval/Care/Monitoring
[2019-01-03] MEDS ORDERED: MAG CARB/AL HYDROX/ALGINIC AC 355 ML BOTTLE PO ONE (09:00)
[2019-01-03] MEDS ORDERED: MAGNESIUM CITRATE 296 ML BOTTLE PO ONE ×2 (09:00→13:00)
[2019-01-03] MEDS ORDERED: HEPARIN SOD (PORCINE) 1,000 UNIT/ML 10 ML VIAL INJ PRN (09:45)
--- NOTE | 2019-01-03 10:03 | PDOC PROGRESS REPORT ---
Subjective Progress Note for:: 01/03/19 Subjective:: I saw the patient during dialysis this morning. She is doing well and her blood pressure is actually good this morning. She does not have any new complaints. She is tolerating dialysis without any complications. Patient has been constipated and Dr. Carter is been giving her medications for this. Reason For Visit: ACUTE PULMONARY EDEMA WITH CONGESTIVE HEART FAILUR Physical Exam Vital Signs: Temp Pulse Resp BP Pulse Ox 97.7 F 74 11 L 154/80 H 96 01/03/19 03:47 01/03/19 07:00 01/03/19 03:47 01/03/19 03:47 01/03/19 03:47 Intake & Output 01/02/19 01/03/19 01/04/19 06:59 06:59 06:59 Intake Total 1284 696 Output Total 0 0 Balance 1284 696 Weight 43.2 kg Vitals during dialysis: Blood pressure 123/70, heart rate of 76, blood flow rate of 400 mL/min and dialysate flow rate of 800 mL/min. Exam: General appearance: PRESENT: no acute distress, cooperative, well-developed, well-nourished Head exam: PRESENT: atraumatic, normocephalic Eye exam: PRESENT: conjunctiva pink, PERRLA. ABSENT: scleral icterus Neck exam: ABSENT: JVD Respiratory exam: PRESENT: Normal breath sounds. ABSENT: crackles, rales, rhonchi, unlabored, wheezes Cardiovascular exam: PRESENT: Regular rate rhythm -+S1, +S2. ABSENT: diastolic murmur, systolic murmur GI/Abdominal exam: PRESENT: normal bowel sounds, soft. ABSENT: guarding, mass, tenderness Extremities exam: ABSENT: No edema Neurological exam: PRESENT: alert, awake, oriented to person, place and time. Skin exam: PRESENT: dry, warm, Cardiovascular exam: PRESENT: +S1, +S2 GI/Abdominal exam: PRESENT: normal bowel sounds, soft. ABSENT: organomegaly, tenderness Results Laboratory Results: 01/03/19 04:55 01/03/19 04:55 01/03/19 01/03/19 04:55 04:55 WBC 3.9 L RBC 3.30 L Hgb 10.6 L Hct 31.7 L MCV 96 MCH 32.1 MCHC 33.4 RDW 17.9 H Plt Count 245 Sodium 134.6 L Potassium 4.5 Chloride 101 Carbon Dioxide 30 Anion Gap 4 L BUN 39 H Creatinine 5.44 H Est GFR ( Amer) 9 L Est GFR (Non-Af Amer) 8 L Glucose 84 Calcium 10.7 H 12/25/18 12/25/18 12/26/18 23:31 23:31 00:31 Creatine Kinase CK-MB (CK-2) Troponin I Cancelled 0.024 NT-Pro-B Natriuret Pep Cancelled 43855 H 12/26/18 12/26/18 12/26/18 07:25 07:25 13:08 Creatine Kinase 44 43 CK-MB (CK-2) 0.99 Troponin I 0.049 NT-Pro-B Natriuret Pep 12/26/18 12/26/18 12/26/18 13:08 20:28 20:28 Creatine Kinase 40 CK-MB (CK-2) 1.10 0.75 Troponin I 0.050 0.036 NT-Pro-B Natriuret Pep Impressions: Chest X-Ray 12/25/18 23:29 IMPRESSION: 1. Increasing volume loss in the right lung base when compared to the prior study. There is grossly stable persistent volume loss in the left lung base. Findings may be due to a combination of pleural fluid, edema, atelectasis and/or pneumonia. 2. Stable right IJ dialysis catheter. Vascular Ultrasound 12/31/18 00:00 IMPRESSION: NO DOPPLER EVIDENCE OF HEMODYNAMICALLY SIGNIFICANT RENAL ARTERY STENOSIS. Assessment & Plan - Diagnosis (1) ESRD (end stage renal disease) on dialysis Is this a current diagnosis for this admission?: Yes Plan: We will do dialysis today for 3 hours, using the patient's PermCath, with 2 potassium bath, blood flow rate of 400 mL per minute, dialysate flow rate of 800 mL per minute, ultrafiltration 2 to 3 L as tolerated, no heparin and no Procrit. Patient will be monitored throughout dialysis treatment by our dialysis nurse. Will adjust treatment accordingly. (2) Labile hypertension Is this a current diagnosis for this admission?: Yes Plan: Duplex of renal arteries that was done last Thursday was negative for any sign ificant hemodynamic renal artery stenosis. Blood pressure has acceptable control currently. Continue all current medications. (3) Anemia in chronic kidney disease (CKD) Is this a current diagnosis for this admission?: Yes Plan: We will give Procrit/Retacrit with dialysis as needed. No need for Procrit today. (4) Constipation Is this a current diagnosis for this admission?: Yes Plan: Defer to Dr. Carter. (5) Hypercalcemia Is this a current diagnosis for this admission?: Yes Plan: Hold calcitriol for now. (6) Hyponatremia Is this a current diagnosis for this admission?: Yes Plan: Mild likely secondary to ESRD with some fluid retention. (7) Acute exacerbation of CHF (congestive heart failure) Qualifiers: Heart failure type: unspecified Qualified Code(s): I50.9 - Heart failure, unspecified Is this a current diagnosis for this admission?: Yes Plan: Currently compensated. - Time Time with patient: 15-25 minutes
[2019-01-03] MEDS: FOLIC ACID/VITAMIN B COMP W-C CAPSULE PO SCH ×3 (12:06→17:21)
[2019-01-03] MEDS: CARVEDILOL 12.5 MG TABLET PO SCH ×2 (12:14→21:50)
[2019-01-03] MEDS: DULOXETINE HCL 30 MG CAPSULE.DR PO SCH (12:14)
[2019-01-03] MEDS: DOXAZOSIN MESYLATE 4 MG TABLET PO SCH ×2 (12:16→21:50)
[2019-01-03] MEDS: FUROSEMIDE 40 MG TABLET PO SCH ×2 (12:16→17:21)
[2019-01-03] MEDS: LUBIPROSTONE 24 MCG CAPSULE PO SCH ×2 (12:16→17:21)
[2019-01-03] MEDS: ONDANSETRON HCL INJ/PF 4 MG/2 ML SDV IV PRN ×2 (16:03→21:56)
[2019-01-03] MEDS: NIFEDIPINE 30 MG TAB.ER.24 PO SCH (21:50)
--- NOTE | 2019-01-04 05:22 | PDOC PROGRESS REPORT ---
Subjective Progress Note for:: 01/04/19 Subjective:: no stool Reason For Visit: ACUTE PULMONARY EDEMA WITH CONGESTIVE HEART FAILUR Physical Exam Vital Signs: Temp Pulse Resp BP Pulse Ox 98.0 F 75 20 127/62 H 96 01/04/19 03:51 01/04/19 03:51 01/04/19 03:51 01/04/19 03:51 01/04/19 03:51 Intake & Output 01/02/19 01/03/19 01/04/19 07:59 07:59 07:59 Intake Total 1284 696 Output Total 0 0 1999 Balance 1284 696 -1999 Weight 95 lb 3.835 oz 89 lb 11.65 oz General appearance: PRESENT: no acute distress Respiratory exam: PRESENT: clear to auscultation jamil Cardiovascular exam: ABSENT: diastolic murmur, irregular rhythm, systolic murmur GI/Abdominal exam: ABSENT: mass, organolmegaly, tenderness Extremities exam: ABSENT: pedal edema Neurological exam: PRESENT: oriented to situation Psychiatric exam: PRESENT: appropriate affect Results Laboratory Results: 01/03/19 04:55 01/03/19 04:55 01/03/19 04:55 Sodium 134.6 L Potassium 4.5 Chloride 101 Carbon Dioxide 30 Anion Gap 4 L BUN 39 H Creatinine 5.44 H Est GFR ( Amer) 9 L Est GFR (Non-Af Amer) 8 L Glucose 84 Calcium 10.7 H Impressions: Chest X-Ray 12/25/18 23:29 IMPRESSION: 1. Increasing volume loss in the right lung base when compared to the prior study. There is grossly stable persistent volume loss in the left lung base. Findings may be due to a combination of pleural fluid, edema, atelectasis and/or pneumonia. 2. Stable right IJ dialysis catheter. Vascular Ultrasound 12/31/18 00:00 IMPRESSION: NO DOPPLER EVIDENCE OF HEMODYNAMICALLY SIGNIFICANT RENAL ARTERY STENOSIS. Assessment & Plan - Diagnosis (1) Acute respiratory failure with hypoxia Is this a current diagnosis for this admission?: Yes (2) ESRD (end stage renal disease) on dialysis Is this a current diagnosis for this admission?: Yes (3) Membranous glomerulonephritis with nephrosis Is this a current diagnosis for this admission?: Yes (4) Chronic lupus nephritis Is this a current diagnosis for this admission?: Yes (5) Asthma, mild intermittent Qualifiers: Asthma complication type: uncomplicated Qualified Code(s): J45.20 - Mild intermittent asthma, uncomplicated Is this a current diagnosis for this admission?: Yes (6) Sciatica of left side Is this a current diagnosis for this admission?: Yes (7) Herpes stomatitis Is this a current diagnosis for this admission?: Yes (8) Slow transit constipation Is this a current diagnosis for this admission?: Yes Plan: recent surgery for s[facility]. Check abdominal xr (9) Pulmonary edema Qualifiers: Chronicity: acute Qualified Code(s): J81.0 - Acute pulmonary edema Is this a current diagnosis for this admission?: Yes - Inpatient Certification Medical Necessity: Failure to Improve With Outpatient Therapy, Significant Comorbidiites Make Outpatient Treatment Too Risky, Need Close Monitoring Due to Risk of Patient Decompensation, Need For IV Fluids, Need For Continuous Telemetry Monitoring, Risk of Complication if Not Cared For in Hospital, Risk of Diagnosis Which Will Require Inpatient Eval/Care/Monitoring
[2019-01-04] MEDS: HEPARIN SOD (PORCINE) 5,000 UNIT/ML 1 ML SYRINGE SUBCUT SCH ×3 (05:26→22:08)
[2019-01-04] MEDS: CLONIDINE HCL 0.2 MG TABLET PO SCH ×3 (05:26→22:08)
[2019-01-04] MEDS: PANTOPRAZOLE SODIUM 40 MG TABLET.DR PO SCH ×2 (05:26→17:01)
[2019-01-04] MEDS: FOLIC ACID/VITAMIN B COMP W-C CAPSULE PO SCH ×3 (08:04→17:01)
[2019-01-04] MEDS: SEVELAMER HCL 800 MG TABLET PO SCH ×3 (08:04→17:01)
[2019-01-04] MEDS: DULOXETINE HCL 30 MG CAPSULE.DR PO SCH (09:13)
[2019-01-04] MEDS: DOXAZOSIN MESYLATE 4 MG TABLET PO SCH ×2 (09:14→22:08)
[2019-01-04] MEDS: FUROSEMIDE 40 MG TABLET PO SCH ×2 (09:14→17:01)
[2019-01-04] MEDS: CARVEDILOL 12.5 MG TABLET PO SCH ×2 (09:14→22:08)
[2019-01-04] MEDS: LUBIPROSTONE 24 MCG CAPSULE PO SCH ×2 (09:14→17:01)
--- NOTE | 2019-01-04 13:12 | RADIOLOGY REPORT (SQ) ---
EXAM DESCRIPTION: ABDOMEN 2 VIEWS COMPLETED DATE/TIME: 01/04/2019 1:03 pm REASON FOR STUDY: 2w constipation COMPARISON: CT abdomen pelvis 07/15/2018, 03/18/2010 NUMBER OF VIEWS: Two views. TECHNIQUE: Supine and upright radiographic images of the abdomen acquired. LIMITATIONS: None. FINDINGS: FREE AIR: Left lung basilar consolidation atelectasis versus pneumonia. No pleural effusi ons. No subdiaphragmatic free air. BOWEL GAS PATTERN: Nonobstructive pattern. No dilated loops or air fluid levels. Large amount of sto ol throughout the transverse and descending colon. CALCIFICATIONS: No suspicious calcifications. SOFT TISSUES: No gross mass or suggestion of organomegaly. HARDWARE: None in the abdomen. BONES: Osteoporotic. No gross acute fracture. Old left superior and inferior pubic ramus fracture. OTHER: No other significant finding. IMPRESSION: NO RADIOGRAPHIC EVIDENCE FOR ACUTE ABDOMINAL DISEASE. TECHNICAL DOCUMENTATION: JOB ID: [id number] [email or web address]- All Rights Reserved Reading location - IP/workstation name: [email or web address]
[2019-01-04] MEDS: NIFEDIPINE 30 MG TAB.ER.24 PO SCH (22:08)
[2019-01-05] MEDS ORDERED: HEPARIN SOD (PORCINE) 1,000 UNIT/ML 10 ML VIAL IV PRN (05:00)
[2019-01-05 05:05] LABS: HEMATOCRIT 30.6 % (36.0-47.0); HEMOGLOBIN 10.2 g/dL (12.0-15.5); MEAN CORPUSCULAR HEMOGLOBIN 31.9 pg (27.0-33.4); MEAN CORPUSCULAR HGB CONC 33.3 g/dL (32.0-36.0); MEAN CORPUSCULAR VOLUME 96 fl (80-97); PLATELET COUNT 266 10^3/uL (150-450); RED BLOOD COUNT 3.19 10^6/uL (3.72-5.28); WHITE BLOOD COUNT 4.5 10^3/uL (4.0-10.5)
[2019-01-05 05:31] LABS: BLOOD UREA NITROGEN 31 mg/dL (7-20); CALCIUM 10.5 mg/dL (8.4-10.2); CARBON DIOXIDE 34 mmol/L (22-30); CHLORIDE 101 mmol/L (98-107); GLUCOSE 83 mg/dL (75-110); POTASSIUM 4.4 mmol/L (3.6-5.0)
[2019-01-05 05:36] LABS: SODIUM 136.6 mmol/L (137-145)
[2019-01-05 05:38] LABS: ANION GAP 2 (5-19)
[2019-01-05] MEDS: PANTOPRAZOLE SODIUM 40 MG TABLET.DR PO SCH ×2 (06:17→18:23)
[2019-01-05] MEDS: CLONIDINE HCL 0.2 MG TABLET PO SCH ×3 (06:17→21:55)
[2019-01-05] MEDS: HEPARIN SOD (PORCINE) 5,000 UNIT/ML 1 ML SYRINGE SUBCUT SCH ×3 (06:17→21:55)
[2019-01-05] MEDS: SEVELAMER HCL 800 MG TABLET PO SCH ×3 (07:00→18:24)
--- NOTE | 2019-01-05 07:35 | PDOC TRANSFER SUMMARY ---
General Admission Date/PCP: 12/26/18 02:09 SARAVANAN ALCARAZ MD Admission Date: 12/26/18 Transfer Date: 01/05/19 Accepting Facility: Other (Comments) - [facility] Resuscitation Status: Full Code - Transfer Diagnosis (1) Acute respiratory failure with hypoxia Is this a current diagnosis for this admission?: Yes (2) Pulmonary edema Is this a current diagnosis for this admission?: Yes (3) ESRD (end stage renal disease) on dialysis Is this a current diagnosis for this admission?: Yes (4) Membranous glomerulonephritis with nephrosis Is this a current diagnosis for this admission?: Yes (5) Chronic lupus nephritis Is this a current diagnosis for this admission?: Yes (6) Asthma, mild intermittent Is this a current diagnosis for this admission?: Yes (7) Sciatica of left side Is this a current diagnosis for this admission?: Yes (8) Herpes stomatitis Is this a current diagnosis for this admission?: Yes (9) Slow transit constipation Is this a current diagnosis for this admission?: Yes - Transfer Medications Home Medications: Carvedilol 25 mg PO Q12 11/25/18 Clonidine HCl 0.3 mg PO Q8 11/25/18 Duloxetine HCl 60 mg PO DAILY 11/25/18 Furosemide [Lasix 40 mg Tablet] 40 mg PO BID 11/25/18 Hydroxychloroquine Sulfate [Plaquenil 200 mg Tablet] 200 mg PO DAILY 11/25/18 Lubiprostone [Amitiza 24 Mcg Capsule] 24 mcg PO Q12 11/25/18 Megestrol Acetate 400 mg PO DAILY 11/25/18 Nifedipine [Nifedipine ER] 60 mg PO QHS 11/25/18 Pantoprazole Sodium 40 mg PO DAILY 11/25/18 Cinacalcet HCl [Sensipar 30 mg Tablet] 30 mg PO WSUPPER 12/26/18 Sevelamer Carbonate [Renvela] 800 mg PO MEALS 12/26/18 Transfer Medications: Current Medications Acetaminophen (Tylenol 325 Mg Tablet) 650 mg PO Q4HP PRN PRN Reason: For headache, pain or fever Stop: 01/25/19 02:05 Last Admin: 12/31/18 20:23 Dose: 650 mg Documented by: Carvedilol (Coreg 12.5 Mg Tablet) 25 mg PO Q12 BHUPENDRA Stop: 01/25/19 21:59 Last Admin: 01/04/19 22:08 Dose: 25 mg Documented by: Clonidine (Catapres 0.2 Mg Tablet) 0.3 mg PO Q8 BHUPENDRA Stop: 01/25/19 21:59 Last Admin: 01/04/19 22:08 Dose: 0.3 mg Documented by: Doxazosin Mesylate (Cardura 4 Mg Tablet) 4 mg PO Q12 BHUPENDRA Stop: 01/29/19 08:29 Last Admin: 01/04/19 22:08 Dose: 4 mg Documented by: Duloxetine HCl (Cymbalta 30 Mg Capsule.Dr) 60 mg PO DAILY BHUPENDRA Stop: 01/26/19 09:59 Last Admin: 01/04/19 09:13 Dose: 60 mg Documented by: Furosemide (Lasix 40 Mg Tablet) 40 mg PO BID BHUPENDRA Stop: 01/26/19 09:59 Last Admin: 01/04/19 17:01 Dose: 40 mg Documented by: Heparin Sodium (Porcine) (Heparin Inj 1,000 Unit/Ml 10 Ml Vial) 5,500 unit IV .SPLIT B/N CATHETERS PRN PRN Reason: THIS MED IS NOT "PRN" Stop: 01/05/19 23:59 Lubiprostone (Amitiza 24 Mcg Capsule) 24 mcg PO BID [facility] Stop: 01/28/19 09:59 Last Admin: 01/04/19 17:01 Dose: 24 mcg Documented by: Multivit/Ca Carb/B Cmplx/FA/Prenat (Nephrocaps Multiple Vitamin Capsule) 1 cap PO MEALS [facility] Stop: 01/28/19 07:59 Last Admin: 01/04/19 17:01 Dose: 1 cap Documented by: Nifedipine (Procardia Xl 30 Mg Tablet) 60 mg PO QHS BHUPENDRA Stop: 01/25/19 21:59 Last Admin: 01/04/19 22:08 Dose: 60 mg Documented by: Ondansetron HCl (Zofran Inj/Pf 4 Mg/2 Ml Sdv) 4 mg IV Q4HP PRN PRN Reason: FOR NAUSEA/VOMITING Stop: 01/25/19 01:59 Last Admin: 01/03/19 21:56 Dose: 4 mg Documented by: Pantoprazole Sodium (Protonix [address] Tablet) 40 mg PO BID@0600,1700 [facility] Stop: 01/25/19 05:59 Last Admin: 01/04/19 17:01 Dose: 40 mg Documented by: Sevelamer HCl (Renagel 800 Mg Tablet) 800 mg PO MEALS BHUPENDRA Stop: 01/26/19 07:59 Last Admin: 01/04/19 17:01 Dose: 800 mg Documented by: - Allergies Allergies/Adverse Reactions: No Known Allergies Allergy (Verified 12/26/18 03:35) - Diet/Activity Discharge Diet: Cardiac Discharge Activity: Supervised Activity - PT daily Hospital Course Hospital Course: Pulmonary edema resolved with 3.8L dialysis. She lost 16# from malnutrition in 11d. She did not stool until oxycodone was stopped. She has become deconditioned from lack of exercise. She wants to return home but has no one who can manage her meds. Physical Exam Vital Signs: Temp Pulse Resp BP Pulse Ox 97.5 F 73 20 128/67 H 97 01/05/19 03:47 01/05/19 03:47 01/05/19 03:47 01/05/19 03:47 01/05/19 03:47 Intake & Output 01/03/19 01/04/19 01/05/19 07:59 07:59 07:59 Intake Total 696 Output Total 0 1999 Balance 696 -2000 Weight 89 lb 11.65 oz General appearance: PRESENT: no acute distress Respiratory exam: PRESENT: clear to auscultation jamil Cardiovascular exam: ABSENT: diastolic murmur, irregular rhythm, systolic murmur GI/Abdominal exam: ABSENT: mass, organolmegaly, tenderness Extremities exam: ABSENT: pedal edema Neurological exam: PRESENT: oriented to situation Psychiatric exam: PRESENT: appropriate affect Results Laboratory Results: Labs- Last Values WBC 4.5 10^3/uL (4.0-10.5) 01/05/19 04:53 RBC 3.19 10^6/uL (3.72-5.28) L 01/05/19 04:53 Hgb 10.2 g/dL (12.0-15.5) L 01/05/19 04:53 Hct 30.6 % (36.0-47.0) L 01/05/19 04:53 MCV 96 fl (80-97) 01/05/19 04:53 MCH 31.9 pg (27.0-33.4) 01/05/19 04:53 MCHC 33.3 g/dL (32.0-36.0) 01/05/19 04:53 RDW 17.0 % (11.5-14.0) H 01/05/19 04:53 Plt Count 266 10^3/uL (150-450) 01/05/19 04:53 Total Counted 100 12/25/18 23:31 Seg Neutrophils % Not Reportable 12/25/18 23:31 Seg Neuts % (Manual) 79 % (42-78) H 12/25/18 23:31 Lymphocytes % Not Reportable 12/25/18 23:31 Lymphocytes % (Manual) 16 % (13-45) 12/25/18 23:31 Monocytes % Not Reportable 12/25/18 23:31 Monocytes % (Manual) 3 % (3-13) 12/25/18 23:31 Eosinophils % Not Reportable 12/25/18 23:31 Eosinophils % (Manual) 1 % (0-6) 12/25/18 23:31 Basophils % Not Reportable 12/25/18 23:31 Basophils % (Manual) 1 % (0-2) 12/25/18 23:31 Absolute Neutrophils Not Reportable 12/25/18 23:31 Abs Neuts (Manual) 6.1 10^3/uL (1.7-8.2) 12/25/18 23:31 Absolute Lymphocytes Not Reportable 12/25/18 23:31 Abs Lymphs (Manual) 1.2 10^3/uL (0.5-4.7) 12/25/18 23:31 Absolute Monocytes Not Reportable 12/25/18 23:31 Abs Monocytes (Manual) 0.2 10^3/uL (0.1-1.4) 12/25/18 23:31 Absolute Eosinophils Not Reportable 12/25/18 23:31 Absolute Eos (Manual) 0.1 10^3/uL (0.0-0.6) 12/25/18 23:31 Absolute Basophils Not Reportable 12/25/18 23:31 Abs Basophils (Manual) 0.1 10^3/uL (0.0-0.2) 12/25/18 23:31 Nucleated RBCs 1 /100 WBC (0) 12/25/18 23:31 Platelet Comment ADEQUATE 12/25/18 23:31 Polychromasia SLIGHT 12/25/18 23:31 Hypochromasia 1+ 12/25/18 23:31 Poikilocytosis SLIGHT 12/25/18 23:31 Anisocytosis 3+ 12/25/18 23:31 Target Cells 3+ 12/25/18 23:31 Schistocytes SLIGHT 12/25/18 23:31 PT 13.7 SEC (11.4-15.4) 12/25/18 23:31 INR 1.05 12/25/18 23:31 Sodium 134.6 mmol/L (137-145) L 01/03/19 04:55 Potassium 4.5 mmol/L (3.6-5.0) 01/03/19 04:55 Chloride 101 mmol/L (98-107) 01/03/19 04:55 Carbon Dioxide 30 mmol/L (22-30) 01/03/19 04:55 Anion Gap 4 (5-19) L 01/03/19 04:55 BUN 39 mg/dL (7-20) H 01/03/19 04:55 Creatinine 5.44 mg/dL (0.52-1.25) H 01/03/19 04:55 Est GFR ( Amer) 9 (>60) L 01/03/19 04:55 Est GFR (Non-Af Amer) 8 (>60) L 01/03/19 04:55 Glucose 84 mg/dL (75-110) 01/03/19 04:55 POC Glucose 86 mg/dL (70-110) 12/27/18 10:03 Calcium 10.7 mg/dL (8.4-10.2) H 01/03/19 04:55 Magnesium 1.9 mg/dL (1.6-2.3) 12/29/18 06:15 Total Bilirubin 0.8 mg/dL (0.2-1.3) 12/26/18 00:31 Direct Bilirubin 0.5 mg/dL (0.0-0.4) H 12/26/18 00:31 Neonat Total Bilirubin Not Reportable 12/26/18 00:31 Neonat Direct Bilirubin Not Reportable 12/26/18 00:31 Neonat Indirect Bili Not Reportable 12/26/18 00:31 AST 25 U/L (14-36) 12/26/18 00:31 ALT 22 U/L (9-52) 12/26/18 00:31 Alkaline Phosphatase 67 U/L (38-126) 12/26/18 00:31 Creatine Kinase 40 U/L (30-135) 12/26/18 20:28 CK-MB (CK-2) 0.75 ng/mL (<4.55) 12/26/18 20:28 Troponin I 0.036 ng/mL 12/26/18 20:28 NT-Pro-B Natriuret Pep 91606 pg/mL (5-900) H 12/26/18 00:31 Total Protein 5.5 g/dL (6.3-8.2) L 12/26/18 00:31 Albumin 2.4 g/dL (3.5-5.0) L 12/26/18 00:31 Impressions: Chest X-Ray 12/25/18 23:29 IMPRESSION: 1. Increasing volume loss in the right lung base when compared to the prior study. There is grossly stable persistent volume loss in the left lung base. Findings may be due to a combination of pleural fluid, edema, atelectasis and/or pneumonia. 2. Stable right IJ dialysis catheter. Vascular Ultrasound 12/31/18 00:00 IMPRESSION: NO DOPPLER EVIDENCE OF HEMODYNAMICALLY SIGNIFICANT RENAL ARTERY STENOSIS. Abdomen X-Ray 01/04/19 00:00 IMPRESSION: NO RADIOGRAPHIC EVIDENCE FOR ACUTE ABDOMINAL DISEASE. Plan Discharge Plan: I will follow at [facility]. Dialysis at [facility] [place].
[2019-01-05] MEDS: FOLIC ACID/VITAMIN B COMP W-C CAPSULE PO SCH ×3 (11:52→18:23)
[2019-01-05] MEDS: LUBIPROSTONE 24 MCG CAPSULE PO SCH ×2 (11:55→18:24)
[2019-01-05] MEDS: DOXAZOSIN MESYLATE 4 MG TABLET PO SCH ×2 (11:55→21:55)
[2019-01-05] MEDS: CARVEDILOL 12.5 MG TABLET PO SCH ×2 (11:56→21:55)
[2019-01-05] MEDS: DULOXETINE HCL 30 MG CAPSULE.DR PO SCH (11:57)
[2019-01-05] MEDS: FUROSEMIDE 40 MG TABLET PO SCH ×2 (11:57→18:32)
[2019-01-05] MEDS: ONDANSETRON HCL INJ/PF 4 MG/2 ML SDV IV PRN (18:18)
--- NOTE | 2019-01-05 18:19 | PDOC PROGRESS REPORT ---
Subjective Progress Note for:: 01/05/19 Subjective:: Saw the patient during dialysis this morning. She is doing fair. Her blood pressure is a little bit more stable with current blood pressure regimen medications. She finally had a bowel movement last night. So far she is tolerating dialysis and has had no complications throughout the treatment. Plan is for patient to be transferred to Rehab. Reason For Visit: ACUTE PULMONARY EDEMA WITH CONGESTIVE HEART FAILUR Physical Exam Vital Signs: Temp Pulse Resp BP Pulse Ox 97.5 F 75 20 128/67 H 97 01/05/19 03:47 01/05/19 07:00 01/05/19 03:47 01/05/19 03:47 01/05/19 03:47 Intake & Output 01/04/19 01/05/19 01/06/19 06:59 06:59 06:59 Output Total 1999 1899 Balance -1999 -1899 Weight 40.7 kg 41.6 kg Vitals during dialysis: Blood pressure 121/64, heart rate of 71, blood flow rate of 400 mL/min, and dialysate flow rate of 800 mL/min. Exam: General appearance: PRESENT: no acute distress, cooperative, well-developed, well-nourished Head exam: PRESENT: atraumatic, normocephalic Eye exam: PRESENT: conjunctiva pink, PERRLA. ABSENT: scleral icterus Neck exam: ABSENT: JVD Respiratory exam: PRESENT: Normal breath sounds. ABSENT: crackles, rales, rhonchi, unlabored, wheezes Cardiovascular exam: PRESENT: Regular rate rhythm -+S1, +S2. ABSENT: diastolic murmur, systolic murmur GI/Abdominal exam: PRESENT: normal bowel sounds, soft. ABSENT: guarding, mass, tenderness Extremities exam: ABSENT: No edema Neurological exam: PRESENT: alert, awake, oriented to person, place and time. Skin exam: PRESENT: dry, warm, Cardiovascular exam: PRESENT: +S1, +S2 GI/Abdominal exam: PRESENT: normal bowel sounds, soft. ABSENT: organomegaly, tenderness Results Laboratory Results: 01/05/19 04:53 01/05/19 04:53 01/05/19 01/05/19 04:53 04:53 WBC 4.5 RBC 3.19 L Hgb 10.2 L Hct 30.6 L MCV 96 MCH 31.9 MCHC 33.3 RDW 17.0 H Plt Count 266 Sodium 136.6 L Potassium 4.4 Chloride 101 Carbon Dioxide 34 H Anion Gap 2 L BUN 31 H Creatinine 4.73 H Est GFR ( Amer) 11 L Est GFR (Non-Af Amer) 9 L Glucose 83 Calcium 10.5 H 12/25/18 12/25/18 12/26/18 23:31 23:31 00:31 Creatine Kinase CK-MB (CK-2) Troponin I Cancelled 0.024 NT-Pro-B Natriuret Pep Cancelled [id number] H 12/26/18 12/26/18 12/26/18 07:25 07:25 13:08 Creatine Kinase 44 43 CK-MB (CK-2) 0.99 Troponin I 0.049 NT-Pro-B Natriuret Pep 12/26/18 12/26/18 12/26/18 13:08 20:28 20:28 Creatine Kinase 40 CK-MB (CK-2) 1.10 0.75 Troponin I 0.050 0.036 NT-Pro-B Natriuret Pep Impressions: Chest X-Ray 12/25/18 23:29 IMPRESSION: 1. Increasing volume loss in the right lung base when compared to the prior study. There is grossly stable persistent volume loss in the left lung base. Findings may be due to a combination of pleural fluid, edema, atelectasis and/or pneumonia. 2. Stable right IJ dialysis catheter. Vascular Ultrasound 12/31/18 00:00 IMPRESSION: NO DOPPLER EVIDENCE OF HEMODYNAMICALLY SIGNIFICANT RENAL ARTERY BRUNILDA NOSIS. Abdomen X-Ray 01/04/19 00:00 IMPRESSION: NO RADIOGRAPHIC EVIDENCE FOR ACUTE ABDOMINAL DISEASE. Assessment & Plan - Diagnosis (1) ESRD (end stage renal disease) on dialysis Is this a current diagnosis for this admission?: Yes Plan: We did dialysis today for 3 hours, using the patient's PermCath, with 2 potassium bath, blood flow rate of 400 mL per minute, dialysate flow rate of 800 mL per minute, ultrafiltration 1 to 2 L as tolerated, no heparin and no Procrit. Patient was monitored throughout dialysis treatment and has had no complications. (2) Labile hypertension Is this a current diagnosis for this admission?: Yes Plan: Duplex of renal arteries that was done last Thursday was negative for any significant hemodynamic renal artery stenosis. Blood pressure has acceptable control currently. Continue all current medications. (3) Anemia in chronic kidney disease (CKD) Is this a current diagnosis for this admission?: Yes Plan: We will give Procrit/Retacrit with dialysis as needed. No need for Procrit today. (4) Constipation Is this a current diagnosis for this admission?: Yes Plan: Resolved. (5) Hypercalcemia Is this a current diagnosis for this admission?: Yes Plan: Hold calcitriol for now. (6) Hyponatremia Is this a current diagnosis for this admission?: Yes Plan: Improved. (7) Acute exacerbation of CHF (congestive heart failure) Qualifiers: Heart failure type: unspecified Qualified Code(s): I50.9 - Heart failure, unspecified Is this a current diagnosis for this admission?: Yes Plan: Currently compensated. - Time Time with patient: 15-25 minutes
[2019-01-05] MEDS: NIFEDIPINE 30 MG TAB.ER.24 PO SCH (21:55)
[2019-01-05] MEDS: ACETAMINOPHEN 325 MG TABLET PO PRN (23:38)
[2019-01-06] MEDS: CLONIDINE HCL 0.2 MG TABLET PO SCH ×3 (05:35→21:13)
[2019-01-06] MEDS: PANTOPRAZOLE SODIUM 40 MG TABLET.DR PO SCH ×2 (05:36→18:34)
[2019-01-06] MEDS: HEPARIN SOD (PORCINE) 5,000 UNIT/ML 1 ML SYRINGE SUBCUT SCH ×3 (05:36→21:12)
--- NOTE | 2019-01-06 07:21 | PDOC PROGRESS REPORT ---
Subjective Progress Note for:: 01/06/19 Subjective:: wants megace again Reason For Visit: ACUTE PULMONARY EDEMA WITH CONGESTIVE HEART FAILUR Physical Exam Vital Signs: Temp Pulse Resp BP Pulse Ox 97.7 F 70 14 139/65 H 100 01/06/19 03:28 01/06/19 03:28 01/06/19 03:28 01/06/19 03:28 01/06/19 03:28 Intake & Output 01/04/19 01/05/19 01/06/19 07:59 07:59 07:59 Output Total 1999 1899 Balance -1999 Weight 89 lb 11.65 oz 91 lb 11.397 oz 88 lb 10.013 oz General appearance: PRESENT: no acute distress Respiratory exam: PRESENT: clear to auscultation jmail Cardiovascular exam: ABSENT: diastolic murmur, irregular rhythm, systolic murmur GI/Abdominal exam: ABSENT: mass, organolmegaly, tenderness Extremities exam: ABSENT: pedal edema Neurological exam: PRESENT: oriented to situation Psychiatric exam: PRESENT: appropriate affect Results Laboratory Results: 01/05/19 04:53 01/05/19 04:53 12/25/18 12/25/18 12/26/18 23:31 23:31 00:31 Creatine Kinase CK-MB (CK-2) Troponin I Cancelled 0.024 NT-Pro-B Natriuret Pep Cancelled [id number] H 12/26/18 12/26/18 12/26/18 07:25 07:25 13:08 Creatine Kinase 44 43 CK-MB (CK-2) 0.99 Troponin I 0.049 NT-Pro-B Natriuret Pep 12/26/18 12/26/18 12/26/18 13:08 20:28 20:28 Creatine Kinase 40 CK-MB (CK-2) 1.10 0.75 Troponin I 0.050 0.036 NT-Pro-B Natriuret Pep Impressions: Chest X-Ray 12/25/18 23:29 IMPRESSION: 1. Increasing volume loss in the right lung base when compared to the prior study. There is grossly stable persistent volume loss in the left lung base. Findings may be due to a combination of pleural fluid, edema, atelectasis and/or pneumonia. 2. Stable right IJ dialysis catheter. Vascular Ultrasound 12/31/18 00:00 IMPRESSION: NO DOPPLER EVIDENCE OF HEMODYNAMICALLY SIGNIFICANT RENAL ARTERY STENOSIS. Abdomen X-Ray 01/04/19 00:00 IMPRESSION: NO RADIOGRAPHIC EVIDENCE FOR ACUTE ABDOMINAL DISEASE. Assessment & Plan - Diagnosis (1) Acute respiratory failure with hypoxia Is this a current diagnosis for this admission?: Yes (2) Pulmonary edema Qualifiers: Chronicity: acute Qualified Code(s): J81.0 - Acute pulmonary edema Is this a current diagnosis for this admission?: Yes (3) ESRD (end stage renal disease) on dialysis Is this a current diagnosis for this admission?: Yes Plan: resume megace. Transfer delayed for inactive medicaid and maxed out medicare. Our 2017 card lists same number but name Louis Valentino. Drivers license says Louis Betancur. card says Tiago Betancur. DSS says medicaid terminated last month. (4) Membranous glomerulonephritis with nephrosis Is this a current diagnosis for this admission?: Yes (5) Chronic lupus nephritis Is this a current diagnosis for this admission?: Yes (6) Asthma, mild intermittent Qualifiers: Asthma complication type: uncomplicated Qualified Code(s): J45.20 - Mild intermittent asthma, uncomplicated Is this a current diagnosis for this admission?: Yes (7) Sciatica of left side Is this a current diagnosis for this admission?: Yes (8) Herpes stomatitis Is this a current diagnosis for this admission?: Yes (9) Slow transit constipation Is this a current diagnosis for this admission?: Yes
[2019-01-06] MEDS: FOLIC ACID/VITAMIN B COMP W-C CAPSULE PO SCH ×3 (07:59→18:34)
[2019-01-06] MEDS: SEVELAMER HCL 800 MG TABLET PO SCH ×3 (07:59→18:34)
[2019-01-06] MEDS: FUROSEMIDE 40 MG TABLET PO SCH ×2 (10:56→18:34)
[2019-01-06] MEDS: DULOXETINE HCL 30 MG CAPSULE.DR PO SCH (10:57)
[2019-01-06] MEDS: LUBIPROSTONE 24 MCG CAPSULE PO SCH ×2 (10:58→18:34)
[2019-01-06] MEDS: MEGESTROL ACETATE SUSP 400 MG/10 ML UDCUP PO SCH (11:00)
[2019-01-06] MEDS: ONDANSETRON HCL INJ/PF 4 MG/2 ML SDV IV PRN ×2 (16:13→23:34)
[2019-01-06] MEDS: DOXAZOSIN MESYLATE 4 MG TABLET PO SCH ×2 (17:08→21:12)
[2019-01-06] MEDS: CARVEDILOL 12.5 MG TABLET PO SCH ×2 (17:09→21:13)
[2019-01-06] MEDS: NIFEDIPINE 30 MG TAB.ER.24 PO SCH (21:13)
[2019-01-07] MEDS ORDERED: HEPARIN SOD (PORCINE) 1,000 UNIT/ML 10 ML VIAL IV PRN (05:00)
[2019-01-07] MEDS ORDERED: NORMAL SALINE 1000 ML 1,000 ML IV PRN (05:00)
[2019-01-07] MEDS: CLONIDINE HCL 0.2 MG TABLET PO SCH ×3 (05:02→21:05)
[2019-01-07] MEDS: HEPARIN SOD (PORCINE) 5,000 UNIT/ML 1 ML SYRINGE SUBCUT SCH ×3 (05:02→21:06)
[2019-01-07] MEDS: PANTOPRAZOLE SODIUM 40 MG TABLET.DR PO SCH ×2 (05:03→18:04)
[2019-01-07 05:22] LABS: HEMATOCRIT 32.7 % (36.0-47.0); HEMOGLOBIN 10.9 g/dL (12.0-15.5); MEAN CORPUSCULAR HEMOGLOBIN 31.9 pg (27.0-33.4); MEAN CORPUSCULAR HGB CONC 33.5 g/dL (32.0-36.0); MEAN CORPUSCULAR VOLUME 95 fl (80-97); PLATELET COUNT 282 10^3/uL (150-450); RED BLOOD COUNT 3.43 10^6/uL (3.72-5.28); RED CELL DISTRIBUTION WIDTH 16.4 % (11.5-14.0); WHITE BLOOD COUNT 5.5 10^3/uL (4.0-10.5)
[2019-01-07 05:38] LABS: ANION GAP 5 (5-19); BLOOD UREA NITROGEN 38 mg/dL (7-20); CALCIUM 11.3 mg/dL (8.4-10.2); CARBON DIOXIDE 27 mmol/L (22-30); CHLORIDE 106 mmol/L (98-107); GLUCOSE 81 mg/dL (75-110); POTASSIUM 4.7 mmol/L (3.6-5.0); SODIUM 137.6 mmol/L (137-145)
--- NOTE | 2019-01-07 06:56 | PDOC PROGRESS REPORT ---
Subjective Progress Note for:: 01/07/19 Subjective:: no complaints Reason For Visit: ACUTE PULMONARY EDEMA WITH CONGESTIVE HEART FAILUR Physical Exam Vital Signs: Temp Pulse Resp BP Pulse Ox 98.9 F 112 H 18 166/78 H 100 01/06/19 23:18 01/07/19 02:00 01/06/19 23:18 01/06/19 23:18 01/06/19 23:18 Intake & Output 01/05/19 01/06/19 01/07/19 07:59 07:59 07:59 Intake Total 211 Output Total 1900 Balance -1900 211 Weight 91 lb 11.397 oz 88 lb 10.013 oz General appearance: PRESENT: no acute distress Respiratory exam: PRESENT: clear to auscultation jamil Cardiovascular exam: ABSENT: diastolic murmur, irregular rhythm, systolic murmur GI/Abdominal exam: ABSENT: mass, organolmegaly, tenderness Neurological exam: PRESENT: oriented to situation Psychiatric exam: PRESENT: appropriate affect Results Laboratory Results: 01/07/19 04:51 01/07/19 04:51 01/07/19 01/07/19 04:51 04:51 WBC 5.5 RBC 3.43 L Hgb 10.9 L Hct 32.7 L MCV 95 MCH 31.9 MCHC 33.5 RDW 16.4 H Plt Count 282 Sodium 137.6 Potassium 4.7 Chloride 106 Carbon Dioxide 27 Anion Gap 5 BUN 38 H Creatinine 4.55 H Est GFR ( Amer) 12 L Est GFR (Non-Af Amer) 10 L Glucose 81 Calcium 11.3 H Impressions: Chest X-Ray 12/25/18 23:29 IMPRESSION: 1. Increasing volume loss in the right lung base when compared to the prior study. There is grossly stable persistent volume loss in the left lung base. Findings may be due to a combination of pleural fluid, edema, atelectasis and/or pneumonia. 2. Stable right IJ dialysis catheter. Vascular Ultrasound 12/31/18 00:00 IMPRESSION: NO DOPPLER EVIDENCE OF HEMODYNAMICALLY SIGNIFICANT RENAL ARTERY STENOSIS. Abdomen X-Ray 01/04/19 00:00 IMPRESSION: NO RADIOGRAPHIC EVIDENCE FOR ACUTE ABDOMINAL DISEASE. Assessment & Plan - Diagnosis (1) Acute respiratory failure with hypoxia Is this a current diagnosis for this admission?: Yes (2) Pulmonary edema Qualifiers: Chronicity: acute Qualified Code(s): J81.0 - Acute pulmonary edema Is this a current diagnosis for this admission?: Yes (3) ESRD (end stage renal disease) on dialysis Is this a current diagnosis for this admission?: Yes Plan: medicaid reapproved. To SNF with no changes since transfer summary. I will follow (4) Membranous glomerulonephritis with nephrosis Is this a current diagnosis for this admission?: Yes (5) Chronic lupus nephritis Is this a current diagnosis for this admission?: Yes (6) Asthma, mild intermittent Qualifiers: Asthma complication type: uncomplicated Qualified Code(s): J45.20 - Mild intermittent asthma, uncomplicated Is this a current diagnosis for this admission?: Yes (7) Sciatica of left side Is this a current diagnosis for this admission?: Yes (8) Herpes stomatitis Is this a current diagnosis for this admission?: Yes (9) Slow transit constipation Is this a current diagnosis for this admission?: Yes
--- NOTE | 2019-01-07 11:02 | PDOC PROGRESS REPORT ---
Subjective Progress Note for:: 01/07/19 Subjective:: Patient seen on dialysis this morning. He said she has a little bit of nausea and only drink Nepro for breakfast because her breakfast tray came late. She complained of some chest discomfort so she was placed on oxygen. Placement for halfway facility was held 2 days ago because of insurance but yesterday it seems that her Medicaid has been reinstated. So the plan is to transfer her to halfway facility. Otherwise the patient is tolerating dialysis this morning without any complications no problems so far. Reason For Visit: ACUTE PULMONARY EDEMA WITH CONGESTIVE HEART FAILUR Physical Exam Vital Signs: Temp Pulse Resp BP Pulse Ox 98.9 F 78 18 166/78 H 100 01/06/19 23:18 01/07/19 07:00 01/06/19 23:18 01/06/19 23:18 01/06/19 23:18 Intake & Output 01/06/19 01/07/19 01/08/19 06:59 06:59 06:59 Intake Total 211 Output Total 1900 Balance -1900 211 Weight 40.2 kg 41.7 kg Vitals during dialysis: Blood pressure 113/68, heart rate of 72, blood flow rate of 400 mL/min and dialysate flow rate of 800 mL/min. Exam: General appearance: PRESENT: no acute distress, cooperative, well-developed, well-nourished Head exam: PRESENT: atraumatic, normocephalic Eye exam: PRESENT: conjunctiva pink, PERRLA. ABSENT: scleral icterus Neck exam: ABSENT: JVD Respiratory exam: PRESENT: Normal breath sounds. ABSENT: crackles, rales, rhonchi, unlabored, wheezes Cardiovascular exam: PRESENT: Regular rate rhythm -+S1, +S2. ABSENT: diastolic murmur, systolic murmur GI/Abdominal exam: PRESENT: normal bowel sounds, soft. ABSENT: guarding, mass, tenderness Extremities exam: ABSENT: No edema Neurological exam: PRESENT: alert, awake, oriented to person, place and time. Skin exam: PRESENT: dry, warm, Cardiovascular exam: PRESENT: +S1, +S2 GI/Abdominal exam: PRESENT: normal bowel sounds, soft. ABSENT: organomegaly, tenderness Results Laboratory Results: 01/07/19 04:51 01/07/19 04:51 01/07/19 01/07/19 04:51 04:51 WBC 5.5 RBC 3.43 L Hgb 10.9 L Hct 32.7 L MCV 95 MCH 31.9 MCHC 33.5 RDW 16.4 H Plt Count 282 Sodium 137.6 Potassium 4.7 Chloride 106 Carbon Dioxide 27 Anion Gap 5 BUN 38 H Creatinine 4.55 H Est GFR ( Amer) 12 L Est GFR (Non-Af Amer) 10 L Glucose 81 Calcium 11.3 H 12/25/18 12/25/18 12/26/18 23:31 23:31 00:31 Creatine Kinase CK-MB (CK-2) Troponin I Cancelled 0.024 NT-Pro-B Natriuret Pep Cancelled [id number] H 12/26/18 12/26/18 12/26/18 07:25 07:25 13:08 Creatine Kinase 44 43 CK-MB (CK-2) 0.99 Troponin I 0.049 NT-Pro-B Natriuret Pep 12/26/18 12/26/18 12/26/18 13:08 20:28 20:28 Creatine Kinase 40 CK-MB (CK-2) 1.10 0.75 Troponin I 0.050 0.036 NT-Pro-B Natriuret Pep Impressions: Chest X-Ray 12/25/18 23:29 IMPRESSION: 1. Increasing volume loss in the right lung base when compared to the prior study. There is grossly stable persistent volume loss in the left lung base. Findings may be due to a combination of pleural fluid, edema, atelectasis and/or pneumonia. 2. Stable right IJ dialysis catheter. Vascular Ultrasound 12/31/18 00:00 IMPRESSION: NO DOPPLER EVIDENCE OF HEMODYNAMICALLY SIGNIFICANT RENAL ARTERY STENOSIS. Abdomen X-Ray 01/04/19 00:00 IMPRESSION: NO RADIOGRAPHIC EVIDENCE FOR ACUTE ABDOMINAL DISEASE. Assessment & Plan - Diagnosis (1) ESRD (end stage renal disease) on dialysis Is this a current diagnosis for this admission?: Yes Plan: We will do dialysis today for 3 hours, using the patient's PermCath, with 2 potassium bath, blood flow rate of 400 mL per minute, dialysate flow rate of 800 mL per minute, ultrafiltration 2 L as tolerated, no heparin and no Procrit. Patient is being monitored throughout dialysis treatment. (2) Labile hypertension Is this a current diagnosis for this admission?: Yes Plan: Duplex of renal arteries that was done last Thursday was negative for any significant hemodynamic renal artery stenosis. Blood pressure has acceptable control currently. Continue all current medications. (3) Anemia in chronic kidney disease (CKD) Is this a current diagnosis for this admission?: Yes Plan: We will give Procrit/Retacrit with dialysis as needed. No need for Procrit today. (4) Constipation Is this a current diagnosis for this admission?: Yes Plan: Resolved. (5) Hypercalcemia Is this a current diagnosis for this admission?: Yes Plan: Hold calcitriol for now. (6) Hyponatremia Is this a current diagnosis for this admission?: Yes (7) Acute exacerbation of CHF (congestive heart failure) Qualifiers: Heart failure type: unspecified Qualified Code(s): I50.9 - Heart failure, unspecified Is this a current diagnosis for this admission?: Yes Plan: Currently compensated. - Time Time with patient: 15-25 minutes
[2019-01-07] MEDS: ACETAMINOPHEN 325 MG TABLET PO PRN ×2 (13:17→20:31)
[2019-01-07] MEDS: ONDANSETRON HCL INJ/PF 4 MG/2 ML SDV IV PRN ×2 (13:19→20:32)
[2019-01-07] MEDS: FOLIC ACID/VITAMIN B COMP W-C CAPSULE PO SCH ×3 (14:04→18:04)
[2019-01-07] MEDS: SEVELAMER HCL 800 MG TABLET PO SCH ×3 (14:04→18:02)
[2019-01-07] MEDS: LUBIPROSTONE 24 MCG CAPSULE PO SCH ×2 (14:05→18:02)
[2019-01-07] MEDS: CARVEDILOL 12.5 MG TABLET PO SCH ×2 (14:05→21:05)
[2019-01-07] MEDS: DOXAZOSIN MESYLATE 4 MG TABLET PO SCH ×2 (14:05→21:05)
[2019-01-07] MEDS: FUROSEMIDE 40 MG TABLET PO SCH ×2 (14:06→18:02)
[2019-01-07] MEDS: DULOXETINE HCL 30 MG CAPSULE.DR PO SCH (14:06)
[2019-01-07] MEDS: MEGESTROL ACETATE SUSP 400 MG/10 ML UDCUP PO SCH (17:54)
[2019-01-07] MEDS: BUSPIRONE HCL 10 MG TABLET PO SCH (18:00)
[2019-01-07] MEDS: NIFEDIPINE 30 MG TAB.ER.24 PO SCH (21:06)
[2019-01-07] MEDS: PROMETHAZINE HCL INJ 25 MG/1 ML VIAL IV PRN (22:15)
[2019-01-08] MEDS: HEPARIN SOD (PORCINE) 5,000 UNIT/ML 1 ML SYRINGE SUBCUT SCH ×3 (06:21→21:35)
[2019-01-08] MEDS: CLONIDINE HCL 0.2 MG TABLET PO SCH ×3 (06:22→21:33)
[2019-01-08] MEDS: PANTOPRAZOLE SODIUM 40 MG TABLET.DR PO SCH ×2 (06:22→17:17)
[2019-01-08] MEDS: FOLIC ACID/VITAMIN B COMP W-C CAPSULE PO SCH ×3 (07:43→17:17)
--- NOTE | 2019-01-08 09:29 | PDOC PROGRESS REPORT ---
Subjective Progress Note for:: 01/08/19 Subjective:: small stool Reason For Visit: ACUTE PULMONARY EDEMA WITH CONGESTIVE HEART FAILUR Physical Exam Vital Signs: Temp Pulse Resp BP Pulse Ox 98.0 F 75 14 140/60 H 100 01/08/19 07:56 01/08/19 07:56 01/08/19 07:56 01/08/19 07:56 01/08/19 07:56 Intake & Output 01/07/19 01/08/19 01/09/19 07:59 07:59 07:59 Intake Total 211 290 Output Total 2200 Balance 211 -1910 Weight 91 lb 14.924 oz 88 lb 10.013 oz General appearance: PRESENT: no acute distress Respiratory exam: PRESENT: clear to auscultation jamil Cardiovascular exam: ABSENT: diastolic murmur, irregular rhythm, systolic murmur GI/Abdominal exam: ABSENT: mass, organolmegaly, tenderness Extremities exam: ABSENT: pedal edema Neurological exam: ABSENT: oriented to situation Results Impressions: Chest X-Ray 12/25/18 23:29 IMPRESSION: 1. Increasing volume loss in the right lung base when compared to the prior study. There is grossly stable persistent volume loss in the left lung base. Findings may be due to a combination of pleural fluid, edema, atelectasis and/or pneumonia. 2. Stable right IJ dialysis catheter. Vascular Ultrasound 12/31/18 00:00 IMPRESSION: NO DOPPLER EVIDENCE OF HEMODYNAMICALLY SIGNIFICANT RENAL ARTERY STENOSIS. Abdomen X-Ray 01/04/19 00:00 IMPRESSION: NO RADIOGRAPHIC EVIDENCE FOR ACUTE ABDOMINAL DISEASE. Assessment & Plan - Diagnosis (1) Acute respiratory failure with hypoxia Is this a current diagnosis for this admission?: Yes (2) Pulmonary edema Qualifiers: Chronicity: acute Qualified Code(s): J81.0 - Acute pulmonary edema Is this a current diagnosis for this admission?: Yes (3) ESRD (end stage renal disease) on dialysis Is this a current diagnosis for this admission?: Yes Plan: agitated yesterday. 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 Buspar. Stop renavella for constipation. (4) Membranous glomerulonephritis with nephrosis Is this a current diagnosis for this admission?: Yes (5) Chronic lupus nephritis Is this a current diagnosis for this admission?: Yes (6) Asthma, mild intermittent Qualifiers: Asthma complication type: uncomplicated Qualified Code(s): J45.20 - Mild intermittent asthma, uncomplicated Is this a current diagnosis for this admission?: Yes (7) Sciatica of left side Is this a current diagnosis for this admission?: Yes (8) Herpes stomatitis Is this a current diagnosis for this admission?: Yes (9) Slow transit constipation Is this a current diagnosis for this admission?: Yes
[2019-01-08] MEDS: LUBIPROSTONE 24 MCG CAPSULE PO SCH ×2 (10:04→17:17)
[2019-01-08] MEDS: FUROSEMIDE 40 MG TABLET PO SCH ×2 (10:05→17:16)
[2019-01-08] MEDS: MEGESTROL ACETATE SUSP 400 MG/10 ML UDCUP PO SCH (10:05)
[2019-01-08] MEDS: CARVEDILOL 12.5 MG TABLET PO SCH ×2 (10:05→21:32)
[2019-01-08] MEDS: BUSPIRONE HCL 10 MG TABLET PO SCH ×3 (10:05→17:16)
[2019-01-08] MEDS: DULOXETINE HCL 30 MG CAPSULE.DR PO SCH (10:05)
[2019-01-08] MEDS: DOXAZOSIN MESYLATE 4 MG TABLET PO SCH ×2 (10:05→21:34)
[2019-01-08] MEDS: ACETAMINOPHEN 325 MG TABLET PO PRN (21:34)
[2019-01-08] MEDS: NIFEDIPINE 30 MG TAB.ER.24 PO SCH (21:34)
[2019-01-09] MEDS: PANTOPRAZOLE SODIUM 40 MG TABLET.DR PO SCH ×2 (05:08→17:14)
[2019-01-09] MEDS: HEPARIN SOD (PORCINE) 5,000 UNIT/ML 1 ML SYRINGE SUBCUT SCH ×3 (05:08→22:27)
[2019-01-09] MEDS: CLONIDINE HCL 0.2 MG TABLET PO SCH ×3 (05:08→22:26)
[2019-01-09] MEDS: FOLIC ACID/VITAMIN B COMP W-C CAPSULE PO SCH ×3 (07:14→17:14)
--- NOTE | 2019-01-09 07:51 | PDOC PROGRESS REPORT ---
Subjective Progress Note for:: 01/09/19 Subjective:: wants enema Reason For Visit: ACUTE PULMONARY EDEMA WITH CONGESTIVE HEART FAILUR Physical Exam Vital Signs: Temp Pulse Resp BP Pulse Ox 98.1 F 73 16 115/57 L 97 01/09/19 03:54 01/09/19 07:00 01/09/19 03:54 01/09/19 03:54 01/09/19 03:54 Intake & Output 01/07/19 01/08/19 01/09/19 07:59 07:59 07:59 Intake Total 211 290 940 Output Total 2200 0 Balance 211 -1910 940 Weight 91 lb 14.924 oz 88 lb 10.013 oz 94 lb 2.198 oz General appearance: PRESENT: no acute distress Respiratory exam: PRESENT: clear to auscultation jamil Cardiovascular exam: ABSENT: diastolic murmur, irregular rhythm, systolic murmur GI/Abdominal exam: ABSENT: mass, organolmegaly, tenderness Extremities exam: ABSENT: pedal edema Neurological exam: PRESENT: oriented to situation Psychiatric exam: PRESENT: appropriate affect Results Laboratory Results: 01/07/19 04:51 01/07/19 04:51 12/25/18 12/25/18 12/26/18 23:31 23:31 00:31 Creatine Kinase CK-MB (CK-2) Troponin I Cancelled 0.024 NT-Pro-B Natriuret Pep Cancelled [id number] H 12/26/18 12/26/18 12/26/18 07:25 07:25 13:08 Creatine Kinase 44 43 CK-MB (CK-2) 0.99 Troponin I 0.049 NT-Pro-B Natriuret Pep 12/26/18 12/26/18 12/26/18 13:08 20:28 20:28 Creatine Kinase 40 CK-MB (CK-2) 1.10 0.75 Troponin I 0.050 0.036 NT-Pro-B Natriuret Pep Impressions: Chest X-Ray 12/25/18 23:29 IMPRESSION: 1. Increasing volume loss in the right lung base when compared to the prior study. There is grossly stable persistent volume loss in the left lung base. Findings may be due to a combination of pleural fluid, edema, atelectasis and/or pneumonia. 2. Stable right IJ dialysis catheter. Vascular Ultrasound 12/31/18 00:00 IMPRESSION: NO DOPPLER EVIDENCE OF HEMODYNAMICALLY SIGNIFICANT RENAL ARTERY STENOSIS. Abdomen X-Ray 01/04/19 00:00 IMPRESSION: NO RADIOGRAPHIC EVIDENCE FOR ACUTE ABDOMINAL DISEASE. Assessment & Plan - Diagnosis (1) Acute respiratory failure with hypoxia Is this a current diagnosis for this admission?: Yes (2) Pulmonary edema Qualifiers: Chronicity: acute Qualified Code(s): J81.0 - Acute pulmonary edema Is this a current diagnosis for this admission?: Yes (3) ESRD (end stage renal disease) on dialysis Is this a current diagnosis for this admission?: Yes Plan: dialysis tomorrow (4) Membranous glomerulonephritis with nephrosis Is this a current diagnosis for this admission?: Yes (5) Chronic lupus nephritis Is this a current diagnosis for this admission?: Yes (6) Asthma, mild intermittent Qualifiers: Asthma complication type: uncomplicated Qualified Code(s): J45.20 - Mild intermittent asthma, uncomplicated Is this a current diagnosis for this admission?: Yes (7) Sciatica of left side Is this a current diagnosis for this admission?: Yes (8) Herpes stomatitis Is this a current diagnosis for this admission?: Yes (9) Slow transit constipation Is this a current diagnosis for this admission?: Yes Plan: appears to have stooled early yesterday am in computer. Can have enema prn no stool in 48h.
[2019-01-09] MEDS: CARVEDILOL 12.5 MG TABLET PO SCH ×2 (09:25→22:26)
[2019-01-09] MEDS: BUSPIRONE HCL 10 MG TABLET PO SCH ×3 (09:25→17:13)
[2019-01-09] MEDS: DULOXETINE HCL 30 MG CAPSULE.DR PO SCH (09:25)
[2019-01-09] MEDS: MEGESTROL ACETATE SUSP 400 MG/10 ML UDCUP PO SCH (09:25)
[2019-01-09] MEDS: LUBIPROSTONE 24 MCG CAPSULE PO SCH ×2 (09:25→17:14)
[2019-01-09] MEDS: DOXAZOSIN MESYLATE 4 MG TABLET PO SCH ×2 (09:25→22:26)
[2019-01-09] MEDS: FUROSEMIDE 40 MG TABLET PO SCH ×2 (09:25→17:13)
[2019-01-09] MEDS: ONDANSETRON HCL INJ/PF 4 MG/2 ML SDV IV PRN (16:30)
[2019-01-09] MEDS: NIFEDIPINE 30 MG TAB.ER.24 PO SCH (22:26)
[2019-01-10] MEDS: ACETAMINOPHEN 325 MG TABLET PO PRN (02:37)
[2019-01-10] MEDS ORDERED: HEPARIN SOD (PORCINE) 1,000 UNIT/ML 10 ML VIAL IV PRN ×2 (05:00→09:38)
[2019-01-10] MEDS ORDERED: NORMAL SALINE 1000 ML 1,000 ML IV PRN (05:00)
[2019-01-10] MEDS: HEPARIN SOD (PORCINE) 5,000 UNIT/ML 1 ML SYRINGE SUBCUT SCH ×3 (05:45→21:18)
[2019-01-10] MEDS: CLONIDINE HCL 0.2 MG TABLET PO SCH ×3 (05:46→21:18)
[2019-01-10] MEDS: PANTOPRAZOLE SODIUM 40 MG TABLET.DR PO SCH ×2 (05:46→17:05)
[2019-01-10 05:51] LABS: HEMATOCRIT 31.4 % (36.0-47.0); HEMOGLOBIN 10.4 g/dL (12.0-15.5); MEAN CORPUSCULAR HEMOGLOBIN 31.6 pg (27.0-33.4); MEAN CORPUSCULAR HGB CONC 33.2 g/dL (32.0-36.0); MEAN CORPUSCULAR VOLUME 95 fl (80-97); PLATELET COUNT 277 10^3/uL (150-450); RED BLOOD COUNT 3.29 10^6/uL (3.72-5.28); RED CELL DISTRIBUTION WIDTH 15.5 % (11.5-14.0); WHITE BLOOD COUNT 5.7 10^3/uL (4.0-10.5)
[2019-01-10 06:16] LABS: ANION GAP 5 (5-19); BLOOD UREA NITROGEN 69 mg/dL (7-20); CALCIUM 11.8 mg/dL (8.4-10.2); CARBON DIOXIDE 29 mmol/L (22-30); CHLORIDE 102 mmol/L (98-107); GLUCOSE 76 mg/dL (75-110); POTASSIUM 4.7 mmol/L (3.6-5.0); SODIUM 136.2 mmol/L (137-145)
--- NOTE | 2019-01-10 06:46 | PDOC PROGRESS REPORT ---
Subjective Progress Note for:: 01/10/19 Subjective:: stooled off sevelamer stopped for hypercalcemia Reason For Visit: ACUTE PULMONARY EDEMA WITH CONGESTIVE HEART FAILUR Physical Exam Vital Signs: Temp Pulse Resp BP Pulse Ox 98.4 F 79 16 149/69 H 98 01/09/19 19:41 01/09/19 19:41 01/09/19 19:41 01/09/19 19:41 01/10/19 02:19 Intake & Output 01/08/19 01/09/19 01/10/19 07:59 07:59 07:59 Intake Total 290 940 480 Output Total 2200 0 Balance -1910 940 480 Weight 88 lb 10.013 oz 94 lb 2.198 oz General appearance: PRESENT: no acute distress Cardiovascular exam: ABSENT: diastolic murmur, irregular rhythm, systolic murmur GI/Abdominal exam: ABSENT: mass, organolmegaly, tenderness Extremities exam: ABSENT: pedal edema Neurological exam: PRESENT: oriented to situation Psychiatric exam: PRESENT: appropriate affect Results Laboratory Results: 01/10/19 05:52 01/10/19 05:12 01/10/19 01/10/19 05:12 05:52 WBC 5.7 RBC 3.29 L Hgb 10.4 L Hct 31.4 L MCV 95 MCH 31.6 MCHC 33.2 RDW 15.5 H Plt Count 277 Sodium 136.2 L Potassium 4.7 Chloride 102 Carbon Dioxide 29 Anion Gap 5 BUN 69 H Creatinine 5.43 H Est GFR ( Amer) 9 L Est GFR (Non-Af Amer) 8 L Glucose 76 Calcium 11.8 H 12/25/18 12/25/18 12/26/18 23:31 23:31 00:31 Creatine Kinase CK-MB (CK-2) Troponin I Cancelled 0.024 NT-Pro-B Natriuret Pep Cancelled [id number] H 12/26/18 12/26/18 12/26/18 07:25 07:25 13:08 Creatine Kinase 44 43 CK-MB (CK-2) 0.99 Troponin I 0.049 NT-Pro-B Natriuret Pep 12/26/18 12/26/18 12/26/18 13:08 20:28 20:28 Creatine Kinase 40 CK-MB (CK-2) 1.10 0.75 Troponin I 0.050 0.036 NT-Pro-B Natriuret Pep Impressions: Chest X-Ray 12/25/18 23:29 IMPRESSION: 1. Increasing volume loss in the right lung base when compared to the prior study. There is grossly stable persistent volume loss in the left lung base. Findings may be due to a combination of pleural fluid, edema, atelectasis and/or pneumonia. 2. Stable right IJ dialysis catheter. Vascular Ultrasound 12/31/18 00:00 IMPRESSION: NO DOPPLER EVIDENCE OF HEMODYNAMICALLY SIGNIFICANT RENAL ARTERY STENOSIS. Abdomen X-Ray 01/04/19 00:00 IMPRESSION: NO RADIOGRAPHIC EVIDENCE FOR ACUTE ABDOMINAL DISEASE. Assessment & Plan - Diagnosis (1) Acute respiratory failure with hypoxia Is this a current diagnosis for this admission?: Yes (2) Pulmonary edema Qualifiers: Chronicity: acute Qualified Code(s): J81.0 - Acute pulmonary edema Is this a current diagnosis for this admission?: Yes (3) ESRD (end stage renal disease) on dialysis Is this a current diagnosis for this admission?: Yes Plan: dialysis (4) Membranous glomerulonephritis with nephrosis Is this a current diagnosis for this admission?: Yes (5) Chronic lupus nephritis Is this a current diagnosis for this admission?: Yes (6) Asthma, mild intermittent Qualifiers: Asthma complication type: uncomplicated Qualified Code(s): J45.20 - Mild intermittent asthma, uncomplicated Is this a current diagnosis for this admission?: Yes (7) Sciatica of left side Is this a current diagnosis for this admission?: Yes (8) Herpes stomatitis Is this a current diagnosis for this admission?: Yes (9) Slow transit constipation Is this a current diagnosis for this admission?: Yes
--- NOTE | 2019-01-10 09:25 | PDOC PROGRESS REPORT ---
Subjective Progress Note for:: 01/10/19 Subjective:: I am seeing the patient on dialysis this morning. She has been sleeping and tells me she cannot really get enough sleep here in the hospital. She is otherwise doing okay and does not have any new complaints. She had a bowel movement yesterday. She is tolerating dialysis well. Only thing is her lines are reversed to her PermCath but still running. Reason For Visit: ACUTE PULMONARY EDEMA WITH CONGESTIVE HEART FAILUR Physical Exam Vital Signs: Temp Pulse Resp BP Pulse Ox 98.4 F 76 18 130/61 H 100 01/10/19 05:44 01/10/19 07:00 01/10/19 05:44 01/10/19 05:44 01/10/19 05:44 Intake & Output 01/09/19 01/10/19 01/11/19 06:59 06:59 06:59 Intake Total 940 600 Output Total 0 Balance 940 600 Weight 42.7 kg Vitals during dialysis: Blood pressure 121/60, heart rate of 76, blood flow rate of 400 mL/min and dialysate flow rate of 800 mL/min. Exam: General appearance: PRESENT: no acute distress, cooperative, well-developed, well-nourished Head exam: PRESENT: atraumatic, normocephalic Eye exam: PRESENT: conjunctiva pink, PERRLA. ABSENT: scleral icterus Neck exam: ABSENT: JVD Respiratory exam: PRESENT: Normal breath sounds. ABSENT: crackles, rales, rhonchi, unlabored, wheezes Cardiovascular exam: PRESENT: Regular rate rhythm -+S1, +S2. ABSENT: diastolic murmur, systolic murmur GI/Abdominal exam: PRESENT: normal bowel sounds, soft. ABSENT: guarding, mass, tenderness Extremities exam: ABSENT: No edema Neurological exam: PRESENT: alert, awake, oriented to person, place and time. Skin exam: PRESENT: dry, warm, Cardiovascular exam: PRESENT: +S1, +S2 GI/Abdominal exam: PRESENT: normal bowel sounds, soft. ABSENT: organomegaly, tenderness Results Laboratory Results: 01/10/19 05:52 01/10/19 05:12 01/10/19 01/10/19 05:12 05:52 WBC 5.7 RBC 3.29 L Hgb 10.4 L Hct 31.4 L MCV 95 MCH 31.6 MCHC 33.2 RDW 15.5 H Plt Count 277 Sodium 136.2 L Potassium 4.7 Chloride 102 Carbon Dioxide 29 Anion Gap 5 BUN 69 H Creatinine 5.43 H Est GFR ( Amer) 9 L Est GFR (Non-Af Amer) 8 L Glucose 76 Calcium 11.8 H 12/25/18 12/25/18 12/26/18 23:31 23:31 00:31 Creatine Kinase CK-MB (CK-2) Troponin I Cancelled 0.024 NT-Pro-B Natriuret Pep Cancelled [id number] H 12/26/18 12/26/18 12/26/18 07:25 07:25 13:08 Creatine Kinase 44 43 CK-MB (CK-2) 0.99 Troponin I 0.049 NT-Pro-B Natriuret Pep 12/26/18 12/26/18 12/26/18 13:08 20:28 20:28 Creatine Kinase 40 CK-MB (CK-2) 1.10 0.75 Troponin I 0.050 0.036 NT-Pro-B Natriuret Pep Impressions: Chest X-Ray 12/25/18 23:29 IMPRESSION: 1. Increasing volume loss in the right lung base when compared to the prior study. There is grossly stable persistent volume loss in the left lung base. Findings may be due to a combination of pleural fluid, edema, atelectasis and/or pneumonia. 2. Stable right IJ dialysis catheter. Vascular Ultrasound 12/31/18 00:00 IMPRESSION: NO DOPPLER EVIDENCE OF HEMODYNAMICALLY SIGNIFICANT RENAL ARTERY STENOSIS. Abdomen X-Ray 01/04/19 00:00 IMPRESSION: NO RADIOGRAPHIC EVIDENCE FOR ACUTE ABDOMINAL DISEASE. Assessment & Plan - Diagnosis (1) Hypercalcemia Is this a current diagnosis for this admission?: Yes Plan: Patient's calcium has been rising since admission. The patient's calcium was in fact a little bit low and near normal on admission. I held her calcitriol last week but despite that her calcium level continues to go up. I think the patient is currently intravascularly volume depleted. She came in with CHF weighing 50.9 kg and now she is about 41 to 42 kg. Her oral intake is also very minimal during this hospitalization ranging anywhere between 200 200 900 mL daily as recorded. We will use low calcium concentration on her dialysis bath the day, no ultrafiltration and were going to give her 500 mL of saline on dialysis. Repeat chest x-ray. I will also obtain stat tests for phosphorus, albumin, ionized calcium, PTH, serum protein electrophoresis, 25-hydroxy vitamin D, and PTH related peptide today. No calcium supplements nor vitamin D supplements for this patient at this time. (2) ESRD (end stage renal disease) on dialysis Is this a current diagnosis for this admission?: Yes Plan: We will do dialysis today for 3 hours, using the patient's PermCath, with 2 potassium bath with 2 calcium bath, blood flow rate of 400 mL per minute, dialysate flow rate of 800 mL per minute, ultrafiltration none and give her 500 mL of saline, no heparin and no Procrit. Dialysis treatment plan discussed with her dialysis nurse. Patient will be monitored toward closely during dialysis today. (3) Labile hypertension Is this a current diagnosis for this admission?: Yes Plan: Duplex of renal arteries that was done last Thursday was negative for any significant hemodynamic renal artery stenosis. Blood pressure has acceptable control currently. Continue all current medications. (4) Anemia in chronic kidney disease (CKD) Is this a current diagnosis for this admission?: Yes Plan: We will give Procrit/Retacrit with dialysis as needed. No need for Procrit today. (5) Constipation Is this a current diagnosis for this admission?: Yes Plan: Resolved. (6) Hyponatremia Is this a current diagnosis for this admission?: Yes Plan: Improved. (7) Acute exacerbation of CHF (congestive heart failure) Qualifiers: Heart failure type: unspecified Qualified Code(s): I50.9 - Heart failure, unspecified Is this a current diagnosis for this admission?: Yes Plan: Currently compensated. Repeat chest x-ray today. - Time Time with patient: Greater than 35 minutes
[2019-01-10 09:53] LABS: ALBUMIN 2.3 g/dL (3.5-5.0); PHOSPHORUS 1.2 mg/dL (2.5-4.5)
[2019-01-10] MEDS: ONDANSETRON HCL INJ/PF 4 MG/2 ML SDV IV PRN (11:37)
[2019-01-10] MEDS: FOLIC ACID/VITAMIN B COMP W-C CAPSULE PO SCH ×3 (12:37→17:05)
[2019-01-10] MEDS: BUSPIRONE HCL 10 MG TABLET PO SCH ×3 (12:40→17:05)
[2019-01-10] MEDS: DULOXETINE HCL 30 MG CAPSULE.DR PO SCH (12:40)
[2019-01-10] MEDS: LUBIPROSTONE 24 MCG CAPSULE PO SCH ×2 (12:40→17:05)
[2019-01-10] MEDS: DOXAZOSIN MESYLATE 4 MG TABLET PO SCH ×2 (12:40→21:19)
[2019-01-10] MEDS: CARVEDILOL 12.5 MG TABLET PO SCH ×2 (12:41→21:19)
[2019-01-10] MEDS: MEGESTROL ACETATE SUSP 400 MG/10 ML UDCUP PO SCH (12:41)
--- NOTE | 2019-01-10 16:17 | RADIOLOGY REPORT (SQ) ---
EXAM DESCRIPTION: CHEST 2 VIEWS COMPLETED DATE/TIME: 01/10/2019 3:32 pm REASON FOR STUDY: Follow-up CHF, hypercalcemia COMPARISON: 12/25/2018 TECHNIQUE: Frontal and lateral radiographic views of the chest acquired. NUMBER OF VIEWS: Two view. LIMITATIONS: None. FINDINGS: LUNGS AND PLEURA: No pneumothorax. No consolidation or pleural effusion. MEDIASTINUM AND HILAR STRUCTURES: Stable. HEART AND VASCULAR STRUCTURES: Stable. BONES: No acute findings. HARDWARE: Right tunneled dual lumen catheter. OTHER: No other significant finding. IMPRESSION: NO ACUTE FINDINGS. TECHNICAL DOCUMENTATION: JOB ID: [id number] [id number] 2010 [employer]- All Rights Reserved Reading location - IP/workstation name: [email or web address]
[2019-01-10] MEDS: NIFEDIPINE 30 MG TAB.ER.24 PO SCH (21:19)
[2019-01-11 05:23] LABS: CALCIUM 9.7 mg/dL (8.4-10.2); CARBON DIOXIDE 32 mmol/L (22-30); CHLORIDE 100 mmol/L (98-107); GLUCOSE 103 mg/dL (75-110); POTASSIUM 3.9 mmol/L (3.6-5.0)
[2019-01-11 05:29] LABS: SODIUM 135.6 mmol/L (137-145)
[2019-01-11] MEDS: HEPARIN SOD (PORCINE) 5,000 UNIT/ML 1 ML SYRINGE SUBCUT SCH ×3 (05:38→21:25)
[2019-01-11] MEDS: CLONIDINE HCL 0.2 MG TABLET PO SCH ×3 (05:38→21:25)
[2019-01-11] MEDS: PANTOPRAZOLE SODIUM 40 MG TABLET.DR PO SCH ×2 (05:39→16:09)
[2019-01-11 05:42] LABS: ANION GAP 4 (5-19); BLOOD UREA NITROGEN 38 mg/dL (7-20)
--- NOTE | 2019-01-11 07:50 | PDOC PROGRESS REPORT ---
Subjective Progress Note for:: 01/11/19 Subjective:: no complaints. Son would like palliative care consult. Reason For Visit: ACUTE PULMONARY EDEMA WITH CONGESTIVE HEART FAILUR Physical Exam Vital Signs: Temp Pulse Resp BP Pulse Ox 98.6 F 78 16 119/53 L 100 01/11/19 00:02 01/11/19 02:00 01/11/19 00:02 01/11/19 00:02 01/11/19 00:02 Intake & Output 01/09/19 01/10/19 01/11/19 07:59 07:59 07:59 Intake Total 828 489 0715 Output Total 0 Balance 071 277 0135 Weight 94 lb 2.198 oz 93 lb 11.143 oz General appearance: PRESENT: no acute distress Respiratory exam: PRESENT: clear to auscultation jamil Cardiovascular exam: ABSENT: diastolic murmur, irregular rhythm, systolic murmur GI/Abdominal exam: ABSENT: mass, organolmegaly, tenderness Extremities exam: ABSENT: pedal edema Neurological exam: ABSENT: oriented to situation Psychiatric exam: PRESENT: appropriate affect Results Laboratory Results: 01/10/19 05:52 01/11/19 04:25 01/10/19 01/10/19 01/10/19 09:14 09:14 09:14 Sodium Potassium Chloride Carbon Dioxide Anion Gap BUN Creatinine Est GFR ( Amer) Est GFR (Non-Af Amer) Glucose Calcium Ionized Calcium [place] 1.21 Phosphorus 1.2 L Albumin 2.3 L PTH Intact 185.3 H 01/11/19 04:25 Sodium 135.6 L Potassium 3.9 Chloride 100 Carbon Dioxide 32 H Anion Gap 4 L BUN 38 H D Creatinine 2.78 H Est GFR ( Amer) 21 L Est GFR (Non-Af Amer) 17 L Glucose 103 Calcium 9.7 Ionized Calcium [place] Phosphorus Albumin PTH Intact Impressions: Vascular Ultrasound 12/31/18 00:00 IMPRESSION: NO DOPPLER EVIDENCE OF HEMODYNAMICALLY SIGNIFICANT RENAL ARTERY STENOSIS. Abdomen X-Ray 01/04/19 00:00 IMPRESSION: NO RADIOGRAPHIC EVIDENCE FOR ACUTE ABDOMINAL DISEASE. Chest X-Ray 01/10/19 00:00 IMPRESSION: NO ACUTE FINDINGS. Assessment & Plan - Diagnosis (1) Acute respiratory failure with hypoxia Is this a current diagnosis for this admission?: Yes (2) Pulmonary edema Qualifiers: Chronicity: acute Qualified Code(s): J81.0 - Acute pulmonary edema Is this a current diagnosis for this admission?: Yes (3) ESRD (end stage renal disease) on dialysis Is this a current diagnosis for this admission?: Yes Plan: Ca dialyzed to normal. Son requested palliative care consult and PT. Answered all of son's and nieces questions. (4) Membranous glomerulonephritis with nephrosis Is this a current diagnosis for this admission?: Yes (5) Chronic lupus nephritis Is this a current diagnosis for this admission?: Yes (6) Asthma, mild intermittent Qualifiers: Asthma complication type: uncomplicated Qualified Code(s): J45.20 - Mild intermittent asthma, uncomplicated Is this a current diagnosis for this admission?: Yes (7) Sciatica of left side Is this a current diagnosis for this admission?: Yes (8) Herpes stomatitis Is this a current diagnosis for this admission?: Yes (9) Slow transit constipation Is this a current diagnosis for this admission?: Yes
[2019-01-11] MEDS: FOLIC ACID/VITAMIN B COMP W-C CAPSULE PO SCH ×3 (08:45→16:09)
--- NOTE | 2019-01-11 09:43 | PDOC PROGRESS REPORT ---
Subjective Progress Note for:: 01/11/19 Subjective:: Patient is eating and enabling her breakfast when I entered the room. She said she is feeling fine and has no new complaints. Her nurse today told me that patient is still very weak and unable to hold her body and trunk up on her own. I was told the patient would just by sitting down with fall from side to side. I also had a chance to talk to her son from [place], [place] and her niece from [place], [place]. I reiterated her recommendations that if the patient is not going to go to a [facility] facility that she will need somebody to stay with her 19/01 to help her out with activities of daily living. With regards to dialysis patient will also need help in transporting her cell to and from dialysis. Her niece is looking into getting the family service to get the patient to and from dialysis. Answered all her questions as I can. Reason For Visit: ACUTE PULMONARY EDEMA WITH CONGESTIVE HEART FAILUR Physical Exam Vital Signs: Temp Pulse Resp BP Pulse Ox 98.6 F 79 16 119/53 L 100 01/11/19 00:02 01/11/19 07:00 01/11/19 00:02 01/11/19 00:02 01/11/19 00:02 Intake & Output 01/10/19 01/11/19 01/12/19 06:59 06:59 06:59 Intake Total 600 1197 Balance 600 1197 Weight 42.5 kg Exam: General appearance: PRESENT: no acute distress, cooperative, well-developed, well-nourished Head exam: PRESENT: atraumatic, normocephalic Eye exam: PRESENT: conjunctiva pink, PERRLA. ABSENT: scleral icterus Neck exam: ABSENT: JVD Respiratory exam: PRESENT: Normal breath sounds. ABSENT: crackles, rales, rh onchi, unlabored, wheezes Cardiovascular exam: PRESENT: Regular rate rhythm -+S1, +S2. ABSENT: diastolic murmur, systolic murmur GI/Abdominal exam: PRESENT: normal bowel sounds, soft. ABSENT: guarding, mass, tenderness Extremities exam: ABSENT: No edema Neurological exam: PRESENT: alert, awake, oriented to person, place and time. Skin exam: PRESENT: dry, warm, Cardiovascular exam: PRESENT: +S1, +S2 GI/Abdominal exam: PRESENT: normal bowel sounds, soft. ABSENT: organomegaly, tenderness Results Laboratory Results: 01/10/19 05:52 01/11/19 04:25 01/10/19 01/10/19 01/10/19 09:14 09:14 09:14 Sodium Potassium Chloride Carbon Dioxide Anion Gap BUN Creatinine Est GFR ( Amer) Est GFR (Non-Af Amer) Glucose Calcium Ionized Calcium Checo 1.21 Phosphorus 1.2 L Albumin 2.3 L PTH Intact 185.3 H 01/11/19 04:25 Sodium 135.6 L Potassium 3.9 Chloride 100 Carbon Dioxide 32 H Anion Gap 4 L BUN 38 H D Creatinine 2.78 H Est GFR ( Amer) 21 L Est GFR (Non-Af Amer) 17 L Glucose 103 Calcium 9.7 Ionized Calcium Che[place] Phosphorus Albumin PTH Intact 12/25/18 12/25/18 12/26/18 23:31 23:31 00:31 Creatine Kinase CK-MB (CK-2) Troponin I Cancelled 0.024 NT-Pro-B Natriuret Pep Cancelled [id number] H 12/26/18 12/26/18 12/26/18 07:25 07:25 13:08 Creatine Kinase 44 43 CK-MB (CK-2) 0.99 Troponin I 0.049 NT-Pro-B Natriuret Pep 12/26/18 12/26/18 12/26/18 13:08 20:28 20:28 Creatine Kinase 40 CK-MB (CK-2) 1.10 0.75 Troponin I 0.050 0.036 NT-Pro-B Natriuret Pep Impressions: Vascular Ultrasound 12/31/18 00:00 IMPRESSION: NO DOPPLER EVIDENCE OF HEMODYNAMICALLY SIGNIFICANT RENAL ARTERY STENOSIS. Abdomen X-Ray 01/04/19 00:00 IMPRESSION: NO RADIOGRAPHIC EVIDENCE FOR ACUTE ABDOMINAL DISEASE. Chest X-Ray 01/10/19 00:00 IMPRESSION: NO ACUTE FINDINGS. Assessment & Plan - Diagnosis (1) Hypercalcemia Is this a current diagnosis for this admission?: Yes Plan: Patient's calcium has been rising since admission. The patient's calcium was in fact a little bit low and near normal on admission. I held her calcitriol last week but despite that her calcium level continues to go up. I think the patient is currently intravascularly volume depleted. She came in with CHF weighing 50.9 kg and now she is about 41 to 42 kg. Her oral intake is also very minimal during this hospitalization ranging anywhere between 200 200 900 mL daily as recorded. No calcium supplements nor vitamin D supplements for this patient at this time. Yesterday's work-up showed an ionized calcium which is in fact normal at 1.21, her phosphorus is low at 1.2, her PTH is mildly elevated at 185.3 which is acceptable for dialysis patient, her vitamin D is on the low normal of 17 and her PTH RPR pending. Her magnesium is normal at 1.9. Her serum protein electrophoresis is still pending. Her chest x-ray is negative for any mass. I will start patient on phosphorus supplement and continue to monitor her calcium level and adjust the calcium bath during dialysis treatment. (2) Hypophosphatemia Is this a current diagnosis for this admission?: Yes Plan: Start K-Phos Neutral 250 mg 3 times daily before meals. Monitor phosphorus levels. (3) ESRD (end stage renal disease) on dialysis Is this a current diagnosis for this admission?: Yes Plan: Continue maintenance dialysis while here in hospital. New dry weight will be 42.5 kg. (4) Labile hypertension Is this a current diagnosis for this admission?: Yes Plan: Duplex of renal arteries that was done last Thursday was negative for any sig nificant hemodynamic renal artery stenosis. Blood pressure has acceptable control currently. Continue all current medications. (5) Anemia in chronic kidney disease (CKD) Is this a current diagnosis for this admission?: Yes Plan: We will give Procrit/Retacrit with dialysis as needed. (6) Constipation Is this a current diagnosis for this admission?: Yes Plan: Resolved. (7) Hyponatremia Is this a current diagnosis for this admission?: Yes Plan: Improved. (8) Acute exacerbation of CHF (congestive heart failure) Qualifiers: Heart failure type: unspecified Qualified Code(s): I50.9 - Heart failure, unspecified Is this a current diagnosis for this admission?: Yes Plan: Currently compensated. Repeat chest x-ray showed much improved pulmonary congestion compared to 12/25. - Notes Notes: Discussed and update condition of patient with son and niece as above. - Time Time with patient: Greater than 35 minutes
[2019-01-11] MEDS: CARVEDILOL 12.5 MG TABLET PO SCH ×2 (10:30→21:25)
[2019-01-11] MEDS: DULOXETINE HCL 30 MG CAPSULE.DR PO SCH (10:30)
[2019-01-11] MEDS: DOXAZOSIN MESYLATE 4 MG TABLET PO SCH ×2 (10:30→21:25)
[2019-01-11] MEDS: LUBIPROSTONE 24 MCG CAPSULE PO SCH ×2 (10:30→18:06)
[2019-01-11] MEDS: BUSPIRONE HCL 10 MG TABLET PO SCH ×3 (10:30→18:06)
[2019-01-11] MEDS: MEGESTROL ACETATE SUSP 400 MG/10 ML UDCUP PO SCH (10:31)
[2019-01-11] MEDS: PROMETHAZINE HCL INJ 25 MG/1 ML VIAL IV PRN ×2 (10:34→16:09)
[2019-01-11] MEDS: PHOSPHORUS #1 250 MG TABLET PO SCH ×2 (12:25→16:09)
[2019-01-11 15:36] LABS: A/G RATIO. 0.8 (0.7-1.7); ALBUMIN 3 2.2 g/dL (2.9-4.4); ALPHA-1-GLOBULIN 0.3 g/dL (0.0-0.4); BETA GLOBULIN 0.8 g/dL (0.7-1.3); GAMMA GLOBULINS 1.2 g/dL (0.4-1.8); IMMUNOGLOBULIN A 245 mg/dL (87-352); IMMUNOGLOBULIN G 1136 mg/dL (700-1600); IMMUNOGLOBULIN M 98 mg/dL (26-217); MONOCLONAL-SPIKE Not Observed g/dL (Not Observ); PROTEIN TOTAL SERUM 5.1 g/dL (6.0-8.5)
[2019-01-11] MEDS: ONDANSETRON HCL INJ/PF 4 MG/2 ML SDV IV PRN (20:15)
[2019-01-11] MEDS: NIFEDIPINE 30 MG TAB.ER.24 PO SCH (21:25)
[2019-01-12] MEDS ORDERED: NORMAL SALINE 1000 ML 1,000 ML IV PRN (05:00)
[2019-01-12] MEDS ORDERED: HEPARIN SOD (PORCINE) 1,000 UNIT/ML 10 ML VIAL IV PRN (05:00)
[2019-01-12] MEDS: CLONIDINE HCL 0.2 MG TABLET PO SCH ×3 (05:03→21:15)
[2019-01-12] MEDS: PANTOPRAZOLE SODIUM 40 MG TABLET.DR PO SCH ×2 (05:03→17:58)
[2019-01-12] MEDS: HEPARIN SOD (PORCINE) 5,000 UNIT/ML 1 ML SYRINGE SUBCUT SCH (05:04)
[2019-01-12 05:10] LABS: HEMATOCRIT 28.8 % (36.0-47.0); HEMOGLOBIN 9.8 g/dL (12.0-15.5); MEAN CORPUSCULAR HEMOGLOBIN 31.9 pg (27.0-33.4); MEAN CORPUSCULAR HGB CONC 33.9 g/dL (32.0-36.0); MEAN CORPUSCULAR VOLUME 94 fl (80-97); PLATELET COUNT 266 10^3/uL (150-450); RED BLOOD COUNT 3.06 10^6/uL (3.72-5.28); RED CELL DISTRIBUTION WIDTH 15.5 % (11.5-14.0); WHITE BLOOD COUNT 4.9 10^3/uL (4.0-10.5)
[2019-01-12 05:33] LABS: ANION GAP 5 (5-19); BLOOD UREA NITROGEN 62 mg/dL (7-20); CALCIUM 10.3 mg/dL (8.4-10.2); CARBON DIOXIDE 31 mmol/L (22-30); CHLORIDE 100 mmol/L (98-107); GLUCOSE 89 mg/dL (75-110); PHOSPHORUS 2.9 mg/dL (2.5-4.5); POTASSIUM 4.5 mmol/L (3.6-5.0); SODIUM 135.6 mmol/L (137-145)
--- NOTE | 2019-01-12 08:02 | PDOC PROGRESS REPORT ---
Subjective Progress Note for:: 01/12/19 Subjective:: no complaints Reason For Visit: ACUTE PULMONARY EDEMA WITH CONGESTIVE HEART FAILUR Physical Exam Vital Signs: Temp Pulse Resp BP Pulse Ox 98.4 F 76 16 148/74 H 100 01/12/19 03:40 01/12/19 03:40 01/12/19 03:40 01/12/19 03:40 01/12/19 03:40 Intake & Output 01/10/19 01/11/19 01/12/19 07:59 07:59 07:59 Intake Total 600 1197 520 Balance 600 1197 520 Weight 93 lb 11.143 oz 97 lb 10.636 oz General appearance: PRESENT: no acute distress Respiratory exam: PRESENT: clear to auscultation jamil Cardiovascular exam: ABSENT: diastolic murmur, irregular rhythm, systolic murmur GI/Abdominal exam: ABSENT: mass, organolmegaly, tenderness Extremities exam: ABSENT: pedal edema Neurological exam: ABSENT: oriented to situation Psychiatric exam: PRESENT: appropriate affect Results Laboratory Results: 01/12/19 04:53 01/12/19 04:53 01/10/19 01/12/19 01/12/19 09:14 04:53 04:53 WBC 4.9 RBC 3.06 L Hgb 9.8 L Hct 28.8 L MCV 94 MCH 31.9 MCHC 33.9 RDW 15.5 H Plt Count 266 Sodium 135.6 L Potassium 4.5 Chloride 100 Carbon Dioxide 31 H Anion Gap 5 BUN 62 H Creatinine 3.95 H Est GFR ( Amer) 14 L Est GFR (Non-Af Amer) 11 L Glucose 89 Calcium 10.3 H Phosphorus 2.9 Total Protein 5.1 L Albumin 2.2 L Impressions: Vascular Ultrasound 12/31/18 00:00 IMPRESSION: NO DOPPLER EVIDENCE OF HEMODYNAMICALLY SIGNIFICANT RENAL ARTERY STENOSIS. Abdomen X-Ray 01/04/19 00:00 IMPRESSION: NO RADIOGRAPHIC EVIDENCE FOR ACUTE ABDOMINAL DISEASE. Chest X-Ray 01/10/19 00:00 IMPRESSION: NO ACUTE FINDINGS. Assessment & Plan - Diagnosis (1) Acute respiratory failure with hypoxia Is this a current diagnosis for this admission?: Yes (2) Pulmonary edema Qualifiers: Chronicity: acute Qualified Code(s): J81.0 - Acute pulmonary edema Is this a current diagnosis for this admission?: Yes (3) ESRD (end stage renal disease) on dialysis Is this a current diagnosis for this admission?: Yes Plan: Ca10.3 off calcitriol sensipar jes. Cleaned up discharge med list best I could. Warned about consequences of cpr. Son & niece arranging transport for outpatient dialysis and home health. Palliative care consult pending. (4) Membranous glomerulonephritis with nephrosis Is this a current diagnosis for this admission?: Yes (5) Chronic lupus nephritis Is this a current diagnosis for this admission?: Yes (6) Asthma, mild intermittent Qualifiers: Asthma complication type: uncomplicated Qualified Code(s): J45.20 - Mild intermittent asthma, uncomplicated Is this a current diagnosis for this admission?: Yes (7) Sciatica of left side Is this a current diagnosis for this admission?: Yes (8) Herpes stomatitis Is this a current diagnosis for this admission?: Yes (9) Slow transit constipation Is this a current diagnosis for this admission?: Yes Plan: 4 stools since november. 3 in last 3d.
[2019-01-12] MEDS ORDERED: EPOETIN ALFA-EPBX 10,000 UNIT/ML VIAL (RENAL) IV PRN (08:45)
[2019-01-12] MEDS: PHOSPHORUS #1 250 MG TABLET PO SCH ×3 (11:58→17:58)
[2019-01-12] MEDS: FOLIC ACID/VITAMIN B COMP W-C CAPSULE PO SCH ×3 (11:59→17:58)
[2019-01-12] MEDS: MEGESTROL ACETATE SUSP 400 MG/10 ML UDCUP PO SCH (12:12)
[2019-01-12] MEDS: DOXAZOSIN MESYLATE 4 MG TABLET PO SCH ×2 (12:12→21:15)
[2019-01-12] MEDS: LUBIPROSTONE 24 MCG CAPSULE PO SCH ×2 (12:13→17:58)
[2019-01-12] MEDS: CARVEDILOL 12.5 MG TABLET PO SCH ×2 (12:13→21:16)
[2019-01-12] MEDS: DULOXETINE HCL 30 MG CAPSULE.DR PO SCH (12:13)
[2019-01-12] MEDS: BUSPIRONE HCL 10 MG TABLET PO SCH ×3 (12:13→17:58)
--- NOTE | 2019-01-12 17:23 | PDOC PROGRESS REPORT ---
Subjective Progress Note for:: 01/12/19 Subjective:: I am seeing the patient during dialysis this morning. She really does not have any new complaints. She is tolerating dialysis with very minimal ultrafiltration as she needs. Reason For Visit: ACUTE PULMONARY EDEMA WITH CONGESTIVE HEART FAILUR Physical Exam Vital Signs: Temp Pulse Resp BP Pulse Ox 98.4 F 80 16 148/74 H 100 01/12/19 03:40 01/12/19 07:00 01/12/19 03:40 01/12/19 03:40 01/12/19 03:40 Intake & Output 01/11/19 01/12/19 01/13/19 06:59 06:59 06:59 Intake Total 1197 520 Balance 1197 520 Weight 42.5 kg 44.3 kg Vitals during dialysis treatment: Blood pressure of 111/59, heart rate of 72, blood flow rate of 400 mL/min and dialysate flow rate of 800 mL/min. Exam: General appearance: PRESENT: no acute distress, cooperative, well-developed, well-nourished Head exam: PRESENT: atraumatic, normocephalic Eye exam: PRESENT: conjunctiva pink, PERRLA. ABSENT: scleral icterus Neck exam: ABSENT: JVD Respiratory exam: PRESENT: Diminished breath sounds. ABSENT: crackles, rales, rhonchi, unlabored, wheezes Cardiovascular exam: PRESENT: Regular rate rhythm -+S1, +S2. ABSENT: diastolic murmur, systolic murmur GI/Abdominal exam: PRESENT: normal bowel sounds, soft. ABSENT: guarding, mass, tenderness Extremities exam: ABSENT: No edema Neurological exam: PRESENT: alert, awake, oriented to person, place and time. Skin exam: PRESENT: dry, warm, Cardiovascular exam: PRESENT: +S1, +S2 GI/Abdominal exam: PRESENT: normal bowel sounds, soft. ABSENT: organomegaly, tenderness Results Laboratory Results: 01/12/19 04:53 01/12/19 04:53 01/10/19 01/12/19 01/12/19 09:14 04:53 04:53 WBC 4.9 RBC 3.06 L Hgb 9.8 L Hct 28.8 L MCV 94 MCH 31.9 MCHC 33.9 RDW 15.5 H Plt Count 266 Sodium 135.6 L Potassium 4.5 Chloride 100 Carbon Dioxide 31 H Anion Gap 5 BUN 62 H Creatinine 3.95 H Est GFR ( Amer) 14 L Est GFR (Non-Af Amer) 11 L Glucose 89 Calcium 10.3 H Phosphorus 2.9 Total Protein 5.1 L Albumin 2.2 L 12/25/18 12/25/18 12/26/18 23:31 23:31 00:31 Creatine Kinase CK-MB (CK-2) Troponin I Cancelled 0.024 NT-Pro-B Natriuret Pep Cancelled [id number] H 12/26/18 12/26/18 12/26/18 07:25 07:25 13:08 Creatine Kinase 44 43 CK-MB (CK-2) 0.99 Troponin I 0.049 NT-Pro-B Natriuret Pep 12/26/18 12/26/18 12/26/18 13:08 20:28 20:28 Creatine Kinase 40 CK-MB (CK-2) 1.10 0.75 Troponin I 0.050 0.036 NT-Pro-B Natriuret Pep Impressions: Vascular Ultrasound 12/31/18 00:00 IMPRESSION: NO DOPPLER EVIDENCE OF HEMODYNAMICALLY SIGNIFICANT RENAL ARTERY STENOSIS. Abdomen X-Ray 01/04/19 00:00 IMPRESSION: NO RADIOGRAPHIC EVIDENCE FOR ACUTE ABDOMINAL DISEASE. Chest X-Ray 01/10/19 00:00 IMPRESSION: NO ACUTE FINDINGS. Assessment & Plan - Diagnosis (1) ESRD (end stage renal disease) on dialysis Is this a current diagnosis for this admission?: Yes Plan: We will do dialysis today for 3 hours, using the patient's PermCath, with 2.0 calcium and 2 potassium bath with 30 of bicarb, blood flow rate of 400 mL per minute, dialysate flow rate of 800 mL per minute, ultrafiltration only to dry weight of 42.5 kg as tolerated, no heparin and Procrit with 10,000 units during dialysis intravenously. Patient will be monitored throughout dialysis treatment. (2) Hypercalcemia Is this a current diagnosis for this admission?: Yes Plan: Patient's calcium has been rising since admission. The patient's calcium was in fact a little bit low and near normal on admission. I held her calcitriol last week but despite that her calcium level continues to go up. I think the patient is currently intravascularly volume depleted. She came in with CHF weighing 50.9 kg and now she is about 41 to 42 kg. Her oral intake is also very minimal during this hospitalization ranging anywhere between 200-900 mL daily as recorded. No calcium supplements nor vitamin D supplements for this patient at this time. Work-up showed an ionized calcium which is in fact normal at 1.21, her phosphorus is low at 1.2, her PTH is mildly elevated at 185.3 which is acceptable for dialysis patient, her vitamin D is on the low normal of 17 and her PTH-rp pending. Her magnesium is normal at 1.9. Her serum protein electrophoresis and immunoelectrophoresis are both negative. Her chest x-ray is negative for any mass. Patient's calcium has improved, now at 10.3. Upon discharge the patient does not need calcitriol. (3) Hypophosphatemia Is this a current diagnosis for this admission?: Yes Plan: Started K-Phos Neutral 250 mg 3 times daily before meals. Monitor phosphorus levels. Continue K-Phos Neutral while here in the hospital but does not need to be continued upon discharge. (4) Labile hypertension Is this a current diagnosis for this admission?: Yes Plan: Duplex of renal arteries that was done last Thursday was negative for any significant hemodynamic renal artery stenosis. Blood pressure has acceptable control currently. Continue all current medications. (5) Anemia in chronic kidney disease (CKD) Is this a current diagnosis for this admission?: Yes Plan: We will give Procrit/Retacrit with dialysis as needed. (6) Constipation Is this a current diagnosis for this admission?: Yes Plan: Resolved. (7) Hyponatremia Is this a current diagnosis for this admission?: Yes Plan: Improved. (8) Acute exacerbation of CHF (congestive heart failure) Qualifiers: Heart failure type: unspecified Qualified Code(s): I50.9 - Heart failure, unspecified Is this a current diagnosis for this admission?: Yes Plan: Currently compensated. Repeat chest x-ray showed much improved pulmonary congestion compared to 12/25. - Notes Notes: From nephrology standpoint can if patient can either be discharged home or transferred to rehab at any time after dialysis today. Patient will continue her regular scheduled dialysis at [facility] as an outpatient. - Time Time with patient: 15-25 minutes
[2019-01-12] MEDS: ONDANSETRON HCL INJ/PF 4 MG/2 ML SDV IV PRN (20:05)
[2019-01-12] MEDS: NIFEDIPINE 30 MG TAB.ER.24 PO SCH (21:15)
[2019-01-13] MEDS: CLONIDINE HCL 0.2 MG TABLET PO SCH ×2 (05:22→14:57)
[2019-01-13] MEDS: PANTOPRAZOLE SODIUM 40 MG TABLET.DR PO SCH (05:22)
--- NOTE | 2019-01-13 07:31 | PDOC TRANSFER SUMMARY ---
General Admission Date/PCP: 12/26/18 02:09 SARAVANAN ALCARAZ MD Admission Date: 12/26/18 Transfer Date: 01/13/19 Accepting Facility: Other (Comments) - [facility] Resuscitation Status: Full Code - Transfer Diagnosis (1) Acute respiratory failure with hypoxia Is this a current diagnosis for this admission?: Yes (2) Pulmonary edema Is this a current diagnosis for this admission?: Yes (3) ESRD (end stage renal disease) on dialysis Is this a current diagnosis for this admission?: Yes (4) Membranous glomerulonephritis with nephrosis Is this a current diagnosis for this admission?: Yes (5) Chronic lupus nephritis Is this a current diagnosis for this admission?: Yes (6) Asthma, mild intermittent Is this a current diagnosis for this admission?: Yes (7) Sciatica of left side Is this a current diagnosis for this admission?: Yes (8) Herpes stomatitis Is this a current diagnosis for this admission?: Yes (9) Slow transit constipation Is this a current diagnosis for this admission?: Yes - Transfer Medications Home Medications: Carvedilol 25 mg PO Q12 11/25/18 Clonidine HCl 0.3 mg PO Q8 11/25/18 Duloxetine HCl 60 mg PO DAILY 11/25/18 Hydroxychloroquine Sulfate [Plaquenil 200 mg Tablet] 200 mg PO DAILY 11/25/18 Lubiprostone [Amitiza 24 Mcg Capsule] 24 mcg PO Q12 11/25/18 Megestrol Acetate 400 mg PO DAILY 11/25/18 Nifedipine [Nifedipine ER] 60 mg PO QHS 11/25/18 Pantoprazole Sodium 40 mg PO DAILY 11/25/18 Transfer Medications: Current Medications Buspirone HCl (Buspar 10 Mg Tablet) 10 mg PO TID [facility] Stop: 02/06/19 17:59 Last Admin: 01/12/19 17:58 Dose: 10 mg Documented by: Carvedilol (Coreg 12.5 Mg Tablet) 25 mg PO Q12 [facility] Stop: 01/25/19 21:59 Last Admin: 01/12/19 21:16 Dose: 25 mg Documented by: Clonidine (Catapres 0.2 Mg Tablet) 0.3 mg PO Q8 [facility] Stop: 01/25/19 21:59 Last Admin: 01/13/19 05:22 Dose: Not Given Documented by: Doxazosin Mesylate (Cardura 4 Mg Tablet) 4 mg PO Q12 [facility] Stop: 01/29/19 08:29 Last Admin: 01/12/19 21:15 Dose: 4 mg Documented by: Duloxetine HCl (Cymbalta 30 Mg Capsule.) 60 mg PO DAILY [facility] Stop: 01/26/19 09:59 Last Admin: 01/12/19 12:13 Dose: 60 mg Documented by: Lubiprostone (Amitiza 24 Mcg Capsule) 24 mcg PO BID [facility] Stop: 01/28/19 09:59 Last Admin: 01/12/19 17:58 Dose: 24 mcg Documented by: Megestrol Acetate (Megace Viri 400 Mg/10 Ml Udcup) 400 mg PO DAILY [facility] Stop: 02/05/19 09:59 Last Admin: 01/12/19 12:12 Dose: 400 mg Documented by: Multivit/Ca Carb/B Cmplx/FA/Prenat (Nephrocaps Multiple Vitamin Capsule) 1 cap PO MEALS [facility] Stop: 01/28/19 07:59 Last Admin: 01/12/19 17:58 Dose: 1 cap Documented by: Nifedipine (Procardia Xl 30 Mg Tablet) 60 mg PO QHS [facility] Stop: 01/25/19 21:59 Last Admin: 01/12/19 21:15 Dose: 60 mg Documented by: Ondansetron HCl (Zofran ODT) 4mg SQ q6h prn Pantoprazole Sodium (Protonix [address] Tablet) 40 mg PO BID@0600,1700 [facility] Stop: 01/25/19 05:59 Last Admin: 01/13/19 05:22 Dose: Not Given Documented by: - Allergies Allergies/Adverse Reactions: No Known Allergies Allergy (Verified 12/26/18 03:35) - Diet/Activity Discharge Diet: Cardiac Discharge Activity: Supervised Activity Hospital Course Hospital Course: Dyspnea did not recur after dialysis was resumed. Oral intake was poor. Weight fell from 51kg to 41kg. New dry weight goal of 42.5kg was entered for dialysis. Urine output was minimal. I just stopped furosemide. Calcium climbed. Calcitriol, sevelamer, and renevela were stopped. Calcium corrected. Phosphorus fell and was briefly supplemented. Constipation finally improved. Doxazosin was increased for hypertension. Son & niece attempted to advise her about DNR, but she remained full code and commited to dialysis even though she is now nonambulatory. She needs help to sit on side of bed. She had periods of confusion and agitation. She is now oriented. 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 Medicaid lapsed in November but was only paying Medicare premiums. Family plans to take her home eventually. I will follow at [facility]. Physical Exam Vital Signs: Temp Pulse Resp BP Pulse Ox 98.6 F 85 16 117/57 L 99 01/13/19 04:42 01/13/19 04:42 01/13/19 04:42 01/13/19 04:42 01/13/19 04:42 Intake & Output 01/11/19 01/12/19 01/13/19 07:59 07:59 07:59 Intake Total 1197 520 720 Output Total 500 Balance 1197 520 220 Weight 93 lb 11.143 oz 97 lb 10.636 oz General appearance: PRESENT: no acute distress Respiratory exam: ABSENT: clear to auscultation jamil Cardiovascular exam: ABSENT: diastolic murmur, irregular rhythm, systolic murmur GI/Abdominal exam: ABSENT: mass, organolmegaly, tenderness Extremities exam: ABSENT: pedal edema Neurological exam: PRESENT: oriented to person, oriented to place, oriented to time, oriented to situation Psychiatric exam: PRESENT: appropriate affect Results Laboratory Results: Labs- Last Values WBC 4.9 10^3/uL (4.0-10.5) 01/12/19 04:53 RBC 3.06 10^6/uL (3.72-5.28) L 01/12/19 04:53 Hgb 9.8 g/dL (12.0-15.5) L 01/12/19 04:53 Hct 28.8 % (36.0-47.0) L 01/12/19 04:53 MCV 94 fl (80-97) 01/12/19 04:53 MCH 31.9 pg (27.0-33.4) 01/12/19 04:53 MCHC 33.9 g/dL (32.0-36.0) 01/12/19 04:53 RDW 15.5 % (11.5-14.0) H 01/12/19 04:53 Plt Count 266 10^3/uL (150-450) 01/12/19 04:53 Total Counted 100 12/25/18 23:31 Seg Neutrophils % Not Reportable 12/25/18 23:31 Seg Neuts % (Manual) 79 % (42-78) H 12/25/18 23:31 Lymphocytes % Not Reportable 12/25/18 23:31 Lymphocytes % (Manual) 16 % (13-45) 12/25/18 23:31 Monocytes % Not Reportable 12/25/18 23:31 Monocytes % (Manual) 3 % (3-13) 12/25/18 23:31 Eosinophils % Not Reportable 12/25/18 23:31 Eosinophils % (Manual) 1 % (0-6) 12/25/18 23:31 Basophils % Not Reportable 12/25/18 23:31 Basophils % (Manual) 1 % (0-2) 12/25/18 23:31 Absolute Neutrophils Not Reportable 12/25/18 23:31 Abs Neuts (Manual) 6.1 10^3/uL (1.7-8.2) 12/25/18 23:31 Absolute Lymphocytes Not Reportable 12/25/18 23:31 Abs Lymphs (Manual) 1.2 10^3/uL (0.5-4.7) 12/25/18 23:31 Absolute Monocytes Not Reportable 12/25/18 23:31 Abs Monocytes (Manual) 0.2 10^3/uL (0.1-1.4) 12/25/18 23:31 Absolute Eosinophils Not Reportable 12/25/18 23:31 Absolute Eos (Manual) 0.1 10^3/uL (0.0-0.6) 12/25/18 23:31 Absolute Basophils Not Reportable 12/25/18 23:31 Abs Basophils (Manual) 0.1 10^3/uL (0.0-0.2) 12/25/18 23:31 Nucleated RBCs 1 /100 WBC (0) 12/25/18 23:31 Platelet Comment ADEQUATE 12/25/18 23:31 Polychromasia SLIGHT 12/25/18 23:31 Hypochromasia 1+ 12/25/18 23:31 Poikilocytosis SLIGHT 12/25/18 23:31 Anisocytosis 3+ 12/25/18 23:31 Target Cells 3+ 12/25/18 23:31 Schistocytes SLIGHT 12/25/18 23:31 PT 13.7 SEC (11.4-15.4) 12/25/18 23:31 INR 1.05 12/25/18 23:31 Sodium 135.6 mmol/L (137-145) L 01/12/19 04:53 Potassium 4.5 mmol/L (3.6-5.0) 01/12/19 04:53 Chloride 100 mmol/L (98-107) 01/12/19 04:53 Carbon Dioxide 31 mmol/L (22-30) H 01/12/19 04:53 Anion Gap 5 (5-19) 01/12/19 04:53 BUN 62 mg/dL (7-20) H 01/12/19 04:53 Creatinine 3.95 mg/dL (0.52-1.25) H 01/12/19 04:53 Est GFR ( Amer) 14 (>60) L 01/12/19 04:53 Est GFR (Non-Af Amer) 11 (>60) L 01/12/19 04:53 Glucose 89 mg/dL (75-110) 01/12/19 04:53 POC Glucose 86 mg/dL (70-110) 12/27/18 10:03 Calcium 10.3 mg/dL (8.4-10.2) H 01/12/19 04:53 Ionized Calcium [place] 1.21 mmol/L (1.14-1.30) 01/10/19 09:14 Phosphorus 2.9 mg/dL (2.5-4.5) 01/12/19 04:53 Magnesium 1.9 mg/dL (1.6-2.3) 12/29/18 06:15 Total Bilirubin 0.8 mg/dL (0.2-1.3) 12/26/18 00:31 Direct Bilirubin 0.5 mg/dL (0.0-0.4) H 12/26/18 00:31 Neonat Total Bilirubin Not Reportable 12/26/18 00:31 Neonat Direct Bilirubin Not Reportable 12/26/18 00:31 Neonat Indirect Bili Not Reportable 12/26/18 00:31 AST 25 U/L (14-36) 12/26/18 00:31 ALT 22 U/L (9-52) 12/26/18 00:31 Alkaline Phosphatase 67 U/L (38-126) 12/26/18 00:31 Creatine Kinase 40 U/L (30-135) 12/26/18 20:28 CK-MB (CK-2) 0.75 ng/mL (<4.55) 12/26/18 20:28 Troponin I 0.036 ng/mL 12/26/18 20:28 NT-Pro-B Natriuret Pep 70483 pg/mL (5-900) H 12/26/18 00:31 Total Protein 5.1 g/dL (6.0-8.5) L 01/10/19 09:14 Albumin 2.2 g/dL (2.9-4.4) L 01/10/19 09:14 Globulin 2.9 g/dL (2.2-3.9) 01/10/19 09:14 Albumin/Globulin Ratio 0.8 (0.7-1.7) 01/10/19 09:14 Aodsy-3-Fbeguqmmx 0.3 g/dL (0.0-0.4) 01/10/19 09:14 Udxzk-5-Ihghypizw 0.6 g/dL (0.4-1.0) 01/10/19 09:14 Beta Globulins 0.8 g/dL (0.7-1.3) 01/10/19 09:14 Gamma Globulins 1.2 g/dL (0.4-1.8) 01/10/19 09:14 M-Malachi Not Observed g/dL (Not Observ) 01/10/19 09:14 Vitamin D 25-Hydroxy 17.0 ng/mL (14.7-68.3) 01/10/19 09:14 PTH Intact 185.3 pg/mL (10.0-65.0) H 01/10/19 09:14 Immunoglobulin A 245 mg/dL (87-352) 01/10/19 09:14 Immunoglobulin G 1136 mg/dL (700-1600) 01/10/19 09:14 Immunoglobulin M 98 mg/dL (26-217) 01/10/19 09:14 Serum Immunofixation Comment (.) 01/10/19 09:14 Immunofixation Note Comment (.) 01/10/19 09:14 Impressions: Vascular Ultrasound 12/31/18 00:00 IMPRESSION: NO DOPPLER EVIDENCE OF HEMODYNAMICALLY SIGNIFICANT RENAL ARTERY STENOSIS. Abdomen X-Ray 01/04/19 00:00 IMPRESSION: NO RADIOGRAPHIC EVIDENCE FOR ACUTE ABDOMINAL DISEASE. Chest X-Ray 01/10/19 00:00 IMPRESSION: NO ACUTE FINDINGS. Plan Discharge Plan: [facility]. I will follow.
[2019-01-13] MEDS: FOLIC ACID/VITAMIN B COMP W-C CAPSULE PO SCH ×2 (10:33→12:31)
[2019-01-13] MEDS: PHOSPHORUS #1 250 MG TABLET PO SCH ×3 (10:33→15:01)
[2019-01-13] MEDS: DULOXETINE HCL 30 MG CAPSULE.DR PO SCH (10:34)
[2019-01-13] MEDS: BUSPIRONE HCL 10 MG TABLET PO SCH ×2 (10:34→14:58)
[2019-01-13] MEDS: LUBIPROSTONE 24 MCG CAPSULE PO SCH (10:34)
[2019-01-13] MEDS: CARVEDILOL 12.5 MG TABLET PO SCH (10:34)
[2019-01-13] MEDS: MEGESTROL ACETATE SUSP 400 MG/10 ML UDCUP PO SCH (10:34)
[2019-01-13] MEDS: DOXAZOSIN MESYLATE 4 MG TABLET PO SCH (10:34)
[2019-01-13] MEDS: ONDANSETRON HCL INJ/PF 4 MG/2 ML SDV IV PRN (16:23)
[2019-01-13 17:07] VITALS: BP 134/57
== END 2019-01-13 17:30 | DRG 304 ==
LOC: ER 23:26 → EH 12-26 02:09 → 3S 12-26 07:50 → 3N 12-26 16:01
PROVIDERS: ADMIT Emergency Medicine; ATTEND Emergency Medicine
PROC: 5A1D70Z Performance of Urinary Filtration, Intermittent, Less than 6 Hours Per Day (ICD-10-PCS; principal; 2018-12-27)
DX: I16.1 Hypertensive emergency (principal); N18.6 End stage renal disease; J96.01 Acute respiratory failure with hypoxia; J18.1 Lobar pneumonia, unspecified organism; B00.2 Herpesviral gingivostomatitis and pharyngotonsillitis; E87.1 Hypo-osmolality and hyponatremia; E46 Unspecified protein-calorie malnutrition; I13.2 Hypertensive heart and chronic kidney disease with heart failure and with stage 5 chronic kidney disease, or end stage renal disease; Z99.2 Dependence on renal dialysis; I50.9 Heart failure, unspecified; E78.5 Hyperlipidemia, unspecified; K21.9 Gastro-esophageal reflux disease without esophagitis; F32.9 Major depressive disorder, single episode, unspecified; D63.1 Anemia in chronic kidney disease; J45.20 Mild intermittent asthma, uncomplicated; M54.32 Sciatica, left side; M32.14 Glomerular disease in systemic lupus erythematosus; K59.01 Slow transit constipation; Z53.29 Procedure and treatment not carried out because of patient's decision for other reasons
CPT/HCPCS: 36415; 71045; 71046; 74019; 80048; 80053; 82040; 82306; 82330; 82397; 82550; 82553; 82962; 83735; 83880; 83970; 84100; 84484; 85025; 85027; 85610; 86320; 87040; 93005; 93010; 93976; 94660; 96365; 96367; 96375; 99285; J0360; J0692; J1644; J2270; J2405; J2550; J3370; J3490; Q5105